=== PATIENT | male | born 1945 | race Caucasian/White ===

== ENCOUNTER 2016-03-02 10:15 | Emergency (ER) | payer OTHER ==
[~2016-03-02] VITALS: Ht 185.4 cm; Wt 83.0 kg
[~2016-03-02 10:15] MED LIST: ALLO100T PO; ATOR80TA PO; BENZ1CAP34 PO; DOCU1CAP39 PO; HYDR-3129 PO; LOSA25 PO; METO25CR PO; PLAV75TA PO; PRED20 PO; PROT40TA PO; TRAZ100 PO
[2016-03-02 10:30] VITALS: BP 141/82; PULSE 78; RESP 16; TEMP 98.5; O2SAT 96
[2016-03-02] MEDS ORDERED: PLAV75TA29 PO (10:48)
[2016-03-02] MEDS ORDERED: HYDR-3583 PO (10:48)
[2016-03-02] MEDS ORDERED: PRED20 PO (10:48)
[2016-03-02] MEDS ORDERED: DEXAMETHASONE SOD PHOS 20 MG/5 ML VIAL IV PUSH ONE (11:00)
[2016-03-02] MEDS ORDERED: SODIUM CHLORIDE 0.9% FLUSH 5 ML FLUSH IVF PRN (11:00)
--- NOTE | 2016-03-02 11:19 | PD ---
HPI . Back and leg pain Chief Complaint: Musculoskeletal Complaint Time Seen by Provider: 10:45 Travel History International Travel<30 days: No Contact w/Intl Traveler<30days: No Traveled to known affect area: No History of Present Illness HPI This patient presents with multiple complaints. His chief complaint is back and leg pain. He reports an ongoing history of sciatica causes pain in his left lower extremity. He states that he is now having pain in his right lower extremity as well. Pain is exacerbated by movement. Pain is unrelieved by Huntley. He has been on Huntley 10 mg for quite some time. Patient is also complaining with left shoulder pain. He states that he is scheduled to see a specialist next week for an apparent rotator cuff issue. He is also complaining with chest pain, nausea, dizziness and chills. PFSH Past Medical History Arthritis: Yes Asthma: Yes Autoimmune Disease: No Anxiety: No Depression: No Heart Rhythm Problems: No Cancer: No Cardiovascular Problems: Yes High Cholesterol: Yes Chemotherapy: No Chest Pain: No Congestive Heart Failure: No COPD: Yes Cerebrovascular Accident: No Diabetes: No Diminished Hearing: No Endocrine: No Gastrointestinal Disorders: No GERD: No Genitourinary: No Headaches: No Hepatitis: No Hiatal Hernia: No Hypertension: Yes Immune Disorder: No Implanted Vascular Access Dvce: No Kidney Stones: No Musculoskeletal: Yes (torn rotator cuff) Neurologic: No Psychiatric: No Reproductive: No Respiratory: Yes Migraines: No Myocardial Infarction: No Radiation Therapy: No Renal Failure: No Seizures: No Shingles: Yes Sickle Cell Disease: No Sleep Apnea: No Thyroid Disease: No Ulcer: No PNEUMOCCOCAL Vaccine (Year): 1 Past Surgical History Abdominal Surgery: Yes (HERNIORRHAPHY) AICD: No Appendectomy: No Arteriovenous Shunt: No Cardiac Surgery: No Cholecystectomy: No Coronary Stent: Yes (RCA 2015) Ear Surgery: No Endocrine Surgery: No Eye Surgery: Yes (CATARACTS) Genitourinary Surgery: No Gynecologic Surgery: No Insulin Pump: No Joint Replacement: No Neurologic Surgery: No Oral Surgery: No Pacemaker: No Thoracic Surgery: No Tonsillectomy: Yes (HAS HAD TESTICULAR SURGERY) Other Surgery: Yes (sinus) Social History Alcohol Use: Yes (A FEW BEERS MOST DAYS) Tobacco Use: No (QUIT) Substance Use: No Allergies-Medications (Allergen,Severity, Reaction): Coded Allergies: Avelox (Verified Allergy, Severe, Anaphylaxis, 03/02/16) Bactrim (Verified Allergy, Severe, PT CURRENTLY TAKING, 03/02/16) Levaquin (Verified Allergy, Severe, unknown, 03/02/16) patient has a cross sensitvity to avelox Morphine (Verified Allergy, Severe, UNKNOWN, 03/02/16) Penicillin (Verified Allergy, Severe, rash, 03/02/16) Cefuroxime sodium (Verified Adverse Reaction, Intermediate, Rash, 03/02/16) Reported Meds & Prescriptions Reported Meds & Active Scripts Active Reported Plavix (Clopidogrel Bisulfate) 75 Mg Tab 75 Mg PO DAILY Hydrocodone-Acetaminophen 10-325 mg Tab 1 Tab PO Q4H PRN Prednisone 20 Mg Tab 20 Mg PO DAILY Review of Systems Except as stated in HPI: all other systems reviewed are Neg General / Constitutional: Positive: Chills HENT: Positive: Lightheadedness Cardiovascular: Positive: Chest Pain or Discomfort Respiratory: No: Shortness of Breath Gastrointestinal: Positive: Nausea, No: Vomiting, Diarrhea Musculoskeletal: Positive: Pain Neurologic: Positive: Dizziness, No: Focal Abnormalities, Paresthesia, Incontinence, Sensory Disturbance Physical Exam Narrative GENERAL: 70-year-old man who presents ambulatory in no acute distress. SKIN: Warm and dry. HEAD: Atraumatic. Normocephalic. EYES: Pupils equal and round. ENT: No nasal bleeding or discharge. Mucous membranes pink and moist. NECK: Trachea midline. Neck is supple. CARDIOVASCULAR: Regular rate and rhythm. Heart sounds are normal. RESPIRATORY: No accessory muscle use. Lungs are clear with full air movement throughout. GASTROINTESTINAL: Abdomen soft, non-tender, nondistended. MUSCULOSKELETAL: No obvious deformities. No edema. I am unable to elicit any tenderness to percussion along his spine. He complains of posterior leg pain on bilateral straight leg raise. NEUROLOGICAL: Awake and alert. No obvious cranial nerve deficits. Motor grossly within normal limits. Normal speech. PSYCHIATRIC: Appropriate mood and affect; insight and judgment normal. Data Data Last Documented VS Vital Signs Date Time Temp Pulse Resp B/P Pulse Ox O2 Delivery O2 Flow Rate FiO2 03/02/16 10:30 98.5 78 16 141/82 96 Orders Electrocardiogram (03/02/16 10:54) Basic Metabolic Panel (Bmp) (03/02/16 10:54) Ckmb (Isoenzyme) Profile (03/02/16 10:54) Complete Blood Count With Diff (03/02/16 10:54) Magnesium (Mg) (03/02/16 10:54) Troponin I (03/02/16 10:54) Chest, Single Ap (03/02/16 10:54) Iv Access Insert/Monitor (03/02/16 10:54) Sodium Chloride 0.9% Flush (Ns Flush) (03/02/16 11:00) Dexamethasone Inj (Decadron Inj) (03/02/16 11:00) CKMB (03/02/16 11:15) CKMB% (03/02/16 11:15) Labs Laboratory Tests Test 03/02/16 11:15 White Blood Count 8.4 TH/MM3 Red Blood Count 4.93 MIL/MM3 Hemoglobin 15.0 GM/DL Hematocrit 45.7 % Mean Corpuscular Volume 92.8 FL Mean Corpuscular Hemoglobin 30.4 PG Mean Corpuscular Hemoglobin 32.8 % Concent Red Cell Distribution Width 13.3 % Platelet Count 153 TH/MM3 Mean Platelet Volume 8.3 FL Neutrophils (%) (Auto) 87.1 % Lymphocytes (%) (Auto) 7.6 % Monocytes (%) (Auto) 4.4 % Eosinophils (%) (Auto) 0.2 % Basophils (%) (Auto) 0.7 % Neutrophils # (Auto) 7.3 TH/MM3 Lymphocytes # (Auto) 0.6 TH/MM3 Monocytes # (Auto) 0.4 TH/MM3 Eosinophils # (Auto) 0.0 TH/MM3 Basophils # (Auto) 0.1 TH/MM3 CBC Comment DIFF FINAL Differential Comment Sodium Level 141 MEQ/L Potassium Level 4.1 MEQ/L Chloride Level 102 MEQ/L Carbon Dioxide Level 29.1 MEQ/L Anion Gap 10 MEQ/L Blood Urea Nitrogen 11 MG/DL Creatinine 1.00 MG/DL Estimat Glomerular Filtration 74 ML/MIN Rate Random Glucose 133 MG/DL Calcium Level 8.7 MG/DL Magnesium Level 1.9 MG/DL Total Creatine Kinase 143 U/L Creatine Kinase MB 3.0 NG/ML Troponin I LESS THAN 0.02 NG/ML MDM Medical Decision Making Medical Screen Exam Complete: Yes Emergency Medical Condition: Yes Medical Record Reviewed: Yes ( I have reviewed his records and he does have an ongoing history of this pain. 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 Differential Diagnosis Differential diagnosis of back pain includes but is not limited to muscular low back pain, DDD, spinal stenosis, epidural abscess, sciatica, kidney infection or stone. Differential diagnosis of chest pain includes but is not limited to musculoskeletal pain, pulmonary embolism, acute coronary syndrome, pneumonia, pleurisy. Narrative Course Patient presents with multiple complaints. I have not ordered any imaging of his back. If his white count is normal, my suspicion for epidural abscess will be low. I have a very low index of suspicion for any acute problem with this patient. Chest x-ray is negative to the radiologist's interpretation. Chest x-ray was independently viewed by me. CBC is normal. Electrolytes are normal. Troponin is less than 0.02. CK-MB is 3. No acute etiology for the patient's symptoms has been found. Diagnosis Primary Impression: Sciatica Qualified Code: M54.31 - Bilateral sciatica Additional Impression: Chest pain Qualified Code: R07.9 - Chest pain, unspecified type Disposition: 01 DISCHARGE HOME Condition: Stable Marce Gonzalez MD Mar 02, 2016 11:19
[2016-03-02 11:21] LABS: AUTOMATED NEUTROPHIL # 7.3 TH/MM3 (1.8-7.7); BASOPHIL # 0.1 TH/MM3 (0-0.2); BASOPHIL % 0.7 % (0.0-2.0); EOSINOPHIL % 0.2 % (0.0-4.0); HEMATOCRIT 45.7 % (39.0-51.0); LYMPH % 7.6 % (9.0-44.0); LYMPHOCYTE # 0.6 TH/MM3 (1.0-4.8); MEAN CELL VOLUME 92.8 FL (80.0-100.0); MEAN CORPUSCULAR HEMOGLOBIN 30.4 PG (27.0-34.0); MEAN CORPUSCULAR HGB CONC 32.8 % (32.0-36.0); MONO % 4.4 % (0.0-8.0); NEUT % 87.1 % (16.0-70.0); PLATELET COUNT 153 TH/MM3 (150-450); RED BLOOD COUNT 4.93 MIL/MM3 (4.50-5.90); RED CELL DISTRIBUTION WIDTH 13.3 % (11.6-17.2); WHITE BLOOD COUNT 8.4 TH/MM3 (4.0-11.0)
[2016-03-02 11:25] LABS: HEMO FLAGS DIFF FINAL
[2016-03-02 11:29] LABS: CHLORIDE 102 MEQ/L (98-107); POTASSIUM 4.1 MEQ/L (3.5-5.1); SODIUM (NA) 141 MEQ/L (136-145)
[2016-03-02 11:32] LABS: ANION GAP 10 MEQ/L (5-15); BICARBONATE 29.1 MEQ/L (21.0-32.0); BLOOD UREA NITROGEN 11 MG/DL (7-18); MAGNESIUM 1.9 MG/DL (1.5-2.5)
[2016-03-02 11:35] LABS: GLOMERULAR FILTRATION RATE 74 ML/MIN (>89)
[2016-03-02 11:38] LABS: CREATINE KINASE 143 U/L (39-308)
--- NOTE | 2016-03-02 12:06 | RADHPO ---
EXAM DATE/TIME: 03/02/2016 11:18 [facility] COMPARISON: CHEST SINGLE AP, December 01, 2013, 13:48. INDICATIONS : Chest pain, short of breath. MEDICAL HISTORY : Cardiovascular disease. SURGICAL HISTORY : Coronary artery stent. ENCOUNTER: Initial ACUITY: 3 days PAIN SCORE: 2/10 LOCATION: Bilateral chest FINDINGS: A single view of the chest demonstrates the lungs to be symmetrically aerated without evidence of mas s, infiltrate or effusion. The cardiomediastinal contours are unremarkable. Osseous structures are intact. CONCLUSION: No acute disease. Ranulfo Torres MD FACR on March 02, 2016 at 12:05 Board Certified Radiologist. This report was verified electronically.
--- NOTE | 2016-03-02 22:23 | EKG ---
Date Performed: 03/02/2016 Time Performed: 10:57:46 PTAGE: 70 years EKG: Sinus rhythm Left anterior fascicular block rSr'(V1) - probable normal variant Borderline ECG PREVIOUS TRACING : 05/16/2015 22.04 Since previous tracing, no significant change noted DOCTOR: Maco Jackson Interpretating Date/Time 03/02/2016 22:21:58
== END 2016-03-02 13:01 | disposition home or self-care (01) ==
LOC: PHEFT 10:15
DX: M54.31 Sciatica, right side (principal); M54.32 Sciatica, left side; R07.9 Chest pain, unspecified; M25.512 Pain in left shoulder; R42 Dizziness and giddiness; J45.909 Unspecified asthma, uncomplicated; E78.00 Pure hypercholesterolemia, unspecified; J44.9 Chronic obstructive pulmonary disease, unspecified; I10 Essential (primary) hypertension; R94.31 Abnormal electrocardiogram [ECG] [EKG]
CPT/HCPCS: 71010; 80048; 82550; 82552; 83735; 84484; 85025; 93005; 96374; 99284; J1100

== ENCOUNTER 2016-09-08 18:41 | Emergency (ER) | payer OTHER ==
[~2016-09-08 18:41] MED LIST changes: -ALLO100T PO; -ATOR80TA PO; -BENZ1CAP34 PO; -DOCU1CAP39 PO; -HYDR-3129 PO; +HYDR-3583 PO; -LOSA25 PO; -METO25CR PO; -PLAV75TA PO; +PLAV75TA29 PO; -PROT40TA PO; -TRAZ100 PO
[2016-09-08 18:43] VITALS: BP 132/68; PULSE 101; RESP 17; TEMP 99.3; O2SAT 96
[2016-09-08] MEDS ORDERED: KETOROLAC TROMETHAMINE 60 MG/2 ML (IM) VIAL IM ONE (19:30)
--- NOTE | 2016-09-08 19:38 | PD ---
HPI Chief Complaint: Pain: Acute or Chronic Time Seen by Provider: 19:12 Travel History International Travel<30 days: No Contact w/Intl Traveler<30days: No Traveled to known affect area: No History of Present Illness HPI 70-year-old male presents to the emergency department for evaluation of bilateral toe pain 2 days. Patient reports history of chronic pain caused by his neuropathy. He reports his pain is worse than his usual. He denies injury or trauma to the foot. Pain is unrelieved by his Holmes which he takes for his chronic pain. No aggravating or alleviating factors. Symptoms severity mild. PFSH Past Medical History Arthritis: Yes Asthma: Yes Autoimmune Disease: Yes (RA) Anxiety: No Depression: No Heart Rhythm Problems: No Cancer: No Cardiovascular Problems: Yes High Cholesterol: Yes Chemotherapy: No Chest Pain: No Congestive Heart Failure: No COPD: Yes Cerebrovascular Accident: No Coronary Artery Disease: Yes Diabetes: No Diminished Hearing: No Endocrine: No Gastrointestinal Disorders: No GERD: No Genitourinary: No Headaches: No Hepatitis: No Hiatal Hernia: No Hypertension: Yes Immune Disorder: No Implanted Vascular Access Dvce: No Kidney Stones: No Musculoskeletal: Yes (torn rotator cuff) Neurologic: No Psychiatric: No Reproductive: No Respiratory: Yes Migraines: No Myocardial Infarction: No Radiation Therapy: No Renal Failure: No Seizures: No Shingles: Yes Sickle Cell Disease: No Sleep Apnea: No Thyroid Disease: No Ulcer: No Influenza Vaccination: No PNEUMOCCOCAL Vaccine (Year): 1 ?: Not Past Surgical History Abdominal Surgery: Yes (HERNIORRHAPHY) AICD: No Appendectomy: No Arteriovenous Shunt: No Cardiac Surgery: No Cholecystectomy: No Coronary Stent: Yes (RCA 2015) Ear Surgery: No Endocrine Surgery: No Eye Surgery: Yes (CATARACTS) Genitourinary Surgery: No Gynecologic Surgery: No Insulin Pump: No Joint Replacement: No Neurologic Surgery: No Oral Surgery: No Pacemaker: No Thoracic Surgery: No Tonsillectomy: Yes (HAS HAD TESTICULAR SURGERY) Other Surgery: Yes (sinus) Social History Alcohol Use: Yes (A FEW BEERS PER WEEK) Tobacco Use: No (QUIT) Substance Use: No Allergies-Medications (Allergen,Severity, Reaction): Coded Allergies: Avelox (Verified Allergy, Severe, Anaphylaxis, 09/08/16) Bactrim (Verified Allergy, Severe, RASH, 09/08/16) Levaquin (Verified Allergy, Severe, unknown, 09/08/16) patient has a cross sensitvity to avelox Morphine (Verified Allergy, Severe, UNKNOWN, 09/08/16) Penicillin (Verified Allergy, Severe, rash, 09/08/16) Cefuroxime sodium (Verified Adverse Reaction, Intermediate, Rash, 09/08/16) Reported Meds & Prescriptions Reported Meds & Active Scripts Active Reported Plavix (Clopidogrel Bisulfate) 75 Mg Tab 75 Mg PO DAILY Hydrocodone-Acetaminophen 10-325 mg Tab 1 Tab PO Q4H PRN Prednisone 20 Mg Tab 20 Mg PO DAILY Review of Systems Except as stated in HPI: all other systems reviewed are Neg General / Constitutional: No: Fever Eyes: No: Visual changes HENT: No: Headaches Cardiovascular: No: Chest Pain or Discomfort Respiratory: No: Shortness of Breath Gastrointestinal: No: Abdominal Pain Genitourinary: No: Dysuria Musculoskeletal: Positive: Pain (bilateral great toe pain) Physical Exam Narrative GENERAL: Well-nourished, well-developed patient. SKIN: Focused skin assessment warm/dry. HEAD: Normocephalic. EYES: No scleral icterus. No injection or drainage. NECK: Supple, trachea midline. No JVD or lymphadenopathy. CARDIOVASCULAR: Regular rate and rhythm without murmurs, gallops, or rubs. RESPIRATORY: Breath sounds equal bilaterally. No accessory muscle use. GASTROINTESTINAL: Abdomen soft, non-tender, nondistended. MUSCULOSKELETAL: No cyanosis, or edema. 2+ distal pulses. No joint swelling or erythema. Bilateral feet are diffusely painful per palpation no identifiable point tenderness.. BACK: Nontender without obvious deformity. No CVA tenderness. Data Data Last Documented VS Vital Signs Date Time Temp Pulse Resp B/P Pulse Ox O2 Delivery O2 Flow Rate FiO2 09/08/16 18:43 99.3 101 17 132/68 96 Orders Ketorolac Inj (Toradol Inj) (09/08/16 19:30) MDM Medical Decision Making Medical Screen Exam Complete: Yes Emergency Medical Condition: Yes Differential Diagnosis Neuropathy, acute on chronic pain, arthritis Narrative Course 70-year-old male presents emergency department for evaluation of worsening pain in his bilateral great toes. Patient denies trauma. Patient has history of neuropathy with chronic pain in his feet and legs. He reports the pain is unrelieved by his no code.. His physical exam is benign. His extremities are neurovascularly intact. Patient will be given a shot of Toradol and discharged home with NSAIDs. Instructed to follow up with his primary care doctor. 1944 notified by nursing staff the patient was refusing to leave because his pain was not adequately controlled to his standards. Patient claims he cannot walk that he is ambulating in the room. He is threatening to reshma the hospital for not treating his pain. To my assessment the patient does not appear to be in any physical pain. He was given a shot of Toradol and instructed to take his Holmes and follow-up with his pain management doctor. Patient ambulated out of the emergency department with a steady gait. Diagnosis Primary Impression: Neuropathy Additional Impression: Foot pain Qualified Code: M79.671 - Pain in both feet Referrals: Primary Care Physician Additional Instructions: Take the medication as prescribed. Take her Holmes as prescribed. Follow-up with her primary care doctor. Disposition: DISCHARGE HOME Condition: Stable Millie Lai Sep 08, 2016 19:37
== END 2016-09-08 19:55 | disposition home or self-care (01) ==
LOC: PHEFT 18:41
DX: G62.9 Polyneuropathy, unspecified (principal); M79.672 Pain in left foot; M79.671 Pain in right foot
CPT/HCPCS: 96372; 99284; J1885

== ENCOUNTER 2017-05-16 12:33 | Emergency (ER) | payer MEDICARE, OTHER ==
[~2017-05-16] VITALS: Ht 185.4 cm; Wt 72.0 kg
[~2017-05-16 12:33] MED LIST changes: +ASPI-516 CHEW; +DILT31TA PO
[2017-05-16 12:40] VITALS: BP 124/85; PULSE 89; RESP 16; TEMP 97.4; O2SAT 98
--- NOTE | 2017-05-16 13:31 | PD ---
HPI Chief Complaint: Bilateral leg pain Time Seen by Provider: 13:04 Travel History International Travel<30 days: No Contact w/Intl Traveler<30days: No Traveled to known affect area: No History of Present Illness HPI This 71-year-old male says he is having pain in both of his legs. He has a history of back trouble and neuropathy. He has burning pain in his left leg which is quite severe. He goes to Dr. Haley for pain management and is on [place] 4 times daily. He had been on gabapentin but stopped it because it was not working and he had adverse effect. He is on prednisone 20 mg daily for COPD. He says that a couple days ago his right knee swelled up. He does have a history of rheumatoid arthritis. There is no history of injury to the knee. He takes aspirin and Plavix. He has been told that he needs surgery on his back but Dr. Pires has told him that he cannot have the surgery because of his heart issues. PFSH Past Medical History Hx Anticoagulant Therapy: Yes Arthritis: Yes (ra) Asthma: Yes Autoimmune Disease: Yes (RA) Anxiety: No Depression: No Heart Rhythm Problems: No Cancer: No Cardiovascular Problems: Yes ([place] with stents) High Cholesterol: Yes Chemotherapy: No Chest Pain: No Congestive Heart Failure: No COPD: Yes Cerebrovascular Accident: No Coronary Artery Disease: Yes Diabetes: No Diminished Hearing: No Endocrine: No Gastrointestinal Disorders: No GERD: No Genitourinary: No Headaches: No Hepatitis: No Hiatal Hernia: No Hypertension: Yes Immune Disorder: No Implanted Vascular Access Dvce: No Kidney Stones: No Musculoskeletal: Yes (torn rotator cuff) Neurologic: No Psychiatric: No Reproductive: No Respiratory: Yes (COPD) Migraines: No Myocardial Infarction: No Radiation Therapy: No Renal Failure: No Seizures: No Shingles: Yes Sickle Cell Disease: No Sleep Apnea: No Thyroid Disease: No Ulcer: No PNEUMOCCOCAL Vaccine (Year): 1 ?: Not Past Surgical History Abdominal Surgery: Yes (HERNIORRHAPHY) AICD: No Appendectomy: No Arteriovenous Shunt: No Cardiac Surgery: No Cholecystectomy: No Coronary Stent: Yes (RCA 2015) Ear Surgery: No Endocrine Surgery: No Eye Surgery: Yes (CATARACTS) Genitourinary Surgery: No Gynecologic Surgery: No Insulin Pump: No Joint Replacement: No Neurologic Surgery: No Oral Surgery: No Pacemaker: No Thoracic Surgery: No Tonsillectomy: Yes (HAS HAD TESTICULAR SURGERY) Other Surgery: Yes (sinus) Social History Alcohol Use: Yes (A FEW BEERS PER WEEK) Tobacco Use: No (QUIT) Substance Use: No Allergies-Medications (Allergen,Severity, Reaction): Coded Allergies: levofloxacin (Verified Allergy, Severe, unknown, 05/16/17) patient has a cross sensitvity to avelox morphine (Verified Allergy, Severe, UNKNOWN, 05/16/17) moxifloxacin (Verified Allergy, Severe, Anaphylaxis, 05/16/17) penicillin G (Verified Allergy, Severe, rash, 05/16/17) sulfamethoxazole (Verified Allergy, Severe, RASH, 05/16/17) trimethoprim (Verified Allergy, Severe, RASH, 05/16/17) cefuroxime (Verified Adverse Reaction, Intermediate, Rash, 05/16/17) Reported Meds & Prescriptions Reported Meds & Active Scripts Active Hydrocodone-Acetamin 10-325 mg (Hydrocodone/Acetaminophen) 10 Mg-325 Mg Tablet 1 Tab PO Q4H PRN Cardizem (Diltiazem HCl) 30 Mg Tab 30 Mg PO TID Reported Aspirin 81 Mg Chew 81 Mg CHEW DAILY Plavix (Clopidogrel Bisulfate) 75 Mg Tab 75 Mg PO DAILY Prednisone 20 Mg Tab 20 Mg PO DAILY Review of Systems General / Constitutional: No: Fever, Chills Eyes: No: Diploplia, Blurred Vision HENT: No: Headaches Cardiovascular: Positive: Chest Pain or Discomfort Respiratory: Positive: Cough, Shortness of Breath Gastrointestinal: No: Vomiting, Diarrhea Genitourinary: No: Urgency Musculoskeletal: Positive: Pain Skin: No Rash Psychiatric: No: Anxiety Endocrine: No: Heat Intolerance Hematologic/Lymphatic: No: Easy Bruising Physical Exam Narrative GENERAL: Well-developed male SKIN: Focused skin assessment warm/dry. HEAD: Atraumatic. Normocephalic. EYES: Pupils equal and round. No scleral icterus. No injection or drainage. ENT: No nasal bleeding or discharge. Mucous membranes pink and moist. NECK: Trachea midline. No JVD. CARDIOVASCULAR: Regular rate and rhythm. No murmur appreciated. RESPIRATORY: No accessory muscle use. Clear to auscultation. Breath sounds equal bilaterally. GASTROINTESTINAL: Abdomen soft, non-tender, nondistended. Hepatic and splenic margins not palpable. MUSCULOSKELETAL: There is an effusion of the right knee. It is not tense it is not warm or hot. He has diminished sensation in the lateral aspect of the left leg. Patellar reflexes are equal.. NEUROLOGICAL: Awake and alert. No obvious cranial nerve deficits. Motor grossly within normal limits. Normal speech. PSYCHIATRIC: Appropriate mood and affect; insight and judgment normal. Data Data Last Documented VS Vital Signs Date Time Temp Pulse Resp B/P (MAP) Pulse Ox O2 Delivery O2 Flow Rate FiO2 05/16/17 12:40 97.4 89 16 124/85 (98) 98 MDM Medical Decision Making Medical Screen Exam Complete: Yes Emergency Medical Condition: Yes Medical Record Reviewed: Yes Differential Diagnosis Differential includes neuropathy, sciatica Narrative Course Effusion of his right knee appears fairly benign. He does have a history of rheumatoid arthritis. He is on prednisone 20 mg daily for his COPD and is on [place] 4 times a day. I really do not have much to offer this gentleman at this time. He has driven here and I cannot give him any pain medication now. He will be released to follow-up with Dr. Haley Diagnosis Primary Impression: Sciatica Additional Impression: Effusion, right knee Additional Instructions: Increase prednisone to 60 mg daily for 2 days, follow-up with Dr. Haley Disposition: 01 DISCHARGE HOME Condition: Stable Robert Varma MD May 16, 2017 13:31
[2017-05-16] MEDS ORDERED: TRAM50TA PO ×2 (14:21)
--- NOTE | 2017-05-17 20:03 | EKG ---
Date Performed: 05/16/2017 Time Performed: 12:54:10 PTAGE: 71 years EKG: Sinus rhythm WITH OCCASIONAL ECTOPIC PREMATURE COMPLEXES MARKED LEFT AXIS DEVIATION Since previous tracing, no si gnificant change noted ABNORMAL ECG PREVIOUS TRACING : 12/31/2016 09.08 DOCTOR: Jared Plata Interpretating Date/Time 05/17/2017 19:58:22
== END 2017-05-16 14:39 | disposition home or self-care (01) ==
LOC: PHED 12:33
DX: M54.30 Sciatica, unspecified side (principal); M25.461 Effusion, right knee; R94.31 Abnormal electrocardiogram [ECG] [EKG]; I10 Essential (primary) hypertension; J44.9 Chronic obstructive pulmonary disease, unspecified; M06.9 Rheumatoid arthritis, unspecified; E78.00 Pure hypercholesterolemia, unspecified; Z79.01 Long term (current) use of anticoagulants; Z87.39 Personal history of other diseases of the musculoskeletal system and connective tissue; Z86.69 Personal history of other diseases of the nervous system and sense organs; Z86.79 Personal history of other diseases of the circulatory system
CPT/HCPCS: 93005; 99283

== ENCOUNTER 2017-06-30 21:05 | Inpatient (IN) | payer OTHER, MEDICARE ==
[~2017-06-30] VITALS: Ht 185.4 cm; Wt 72.5 kg
[~2017-06-30 21:05] MED LIST changes: -ASPI-516 CHEW; -DILT31TA PO; +TRAM50TA PO
[2017-06-30 21:13] VITALS: BP 109/73; PULSE 95; RESP 19; TEMP 98.3; O2SAT 100
--- NOTE | 2017-06-30 21:22 | PD ---
HPI Chief Complaint: Chest Pain Time Seen by Provider: 21:18 Travel History International Travel<30 days: No Contact w/Intl Traveler<30days: No Traveled to known affect area: No History of Present Illness HPI The patient is a 71 year old male who presents to the [facility] emergency department with a history of chest pain and palpitations that began at 7 PM. The cp began while getting up to change the TV. He began to get SOB and used his nebulizer machine however it did not help. He has a history of CAD with 3 prior stents being placed. His fountain manager is reportedly Dr. Pires. He reports that 4 days ago he ran out of his Plavix and has a prescription and to get filled in the morning. He denies having any increased cough or productive cough, however he has reportedly had nasal discharge that is yellow to brown in color since of this past week. He reports also having a sinus pressure in his face. He had a fever with a tmax of 101 on Saturday. He has had chills. Otherwise on review of systems, the patient denies having any worsening neck pain, abdominal pain, vomiting, diarrhea, urinary symptoms, or neurologic symptoms. The patient incidentally also reports that he is out of his pain medicine. He reports he has an appointment scheduled for tomorrow with his pain management doctor. [facility] Past Medical History Narrative Medical The patient's past medical history is significant for atrial flutter, coronary artery disease, prior history of myocardial infarction, rheumatoid arthritis, peripheral neuropathy, peripheral vascular disease, history of COPD, hyperlipidemia, hypertension, history of shingles, history of a torn rotator cuff on the left. Hx Anticoagulant Therapy: Yes Arthritis: Yes (RA) Asthma: Yes Autoimmune Disease: Yes (RA) Anxiety: No Depression: No Heart Rhythm Problems: No Cancer: No Cardiovascular Problems: Yes (NE with stents) High Cholesterol: Yes Chemotherapy: No Chest Pain: No Congestive Heart Failure: No COPD: Yes Cerebrovascular Accident: No Coronary Artery Disease: Yes Diabetes: No Diminished Hearing: No Endocrine: No Gastrointestinal Disorders: No GERD: No Genitourinary: No Headaches: No Hepatitis: No Hiatal Hernia: No Hypertension: Yes Immune Disorder: No Implanted Vascular Access Dvce: No Kidney Stones: No Musculoskeletal: Yes (torn rotator cuff) Neurologic: No Psychiatric: No Reproductive: No Respiratory: Yes (COPD, asthma ) Migraines: No Myocardial Infarction: Yes Radiation Therapy: No Renal Failure: No Seizures: No Shingles: Yes Sickle Cell Disease: No Sleep Apnea: No Thyroid Disease: No Ulcer: No PNEUMOCCOCAL Vaccine (Year): 1 ?: Not Past Surgical History Narrative Surgical The patient's past surgical history is significant for hernia repair, right coronary artery stenting in 2016, cataract surgery, tonsillectomy, testicle surgery Abdominal Surgery: Yes (HERNIORRHAPHY) AICD: No Appendectomy: No Arteriovenous Shunt: No Cardiac Surgery: No Cholecystectomy: No Coronary Stent: Yes (x3) Ear Surgery: No Endocrine Surgery: No Eye Surgery: Yes (CATARACTS) Genitourinary Surgery: No Gynecologic Surgery: No Insulin Pump: No Joint Replacement: No Neurologic Surgery: No Oral Surgery: No Pacemaker: No Thoracic Surgery: No Tonsillectomy: Yes (HAS HAD TESTICULAR SURGERY) Social History Alcohol Use: Yes (A FEW BEERS PER WEEK) Tobacco Use: No Substance Use: No Allergies-Medications (Allergen,Severity, Reaction): Coded Allergies: levofloxacin (Verified Allergy, Severe, unknown, 06/30/17) patient has a cross sensitvity to avelox morphine (Verified Allergy, Severe, UNKNOWN, 06/30/17) moxifloxacin (Verified Allergy, Severe, Anaphylaxis, 06/30/17) penicillin G (Verified Allergy, Severe, rash, 06/30/17) sulfamethoxazole (Verified Allergy, Severe, RASH, 06/30/17) trimethoprim (Verified Allergy, Severe, RASH, 06/30/17) cefuroxime (Verified Adverse Reaction, Intermediate, Rash, 06/30/17) Reported Meds & Prescriptions Reported Meds & Active Scripts Active Hydrocodone-Acetamin 10-325 mg (Hydrocodone/Acetaminophen) 10 Mg-325 Mg Tablet 1 Tab PO Q4H PRN Reported Tramadol (Tramadol HCl) 50 Mg Tab 50 Mg PO Q4H PRN Prednisone 20 Mg Tab 20 Mg PO DAILY Review of Systems Except as stated in HPI: all other systems reviewed are Neg General / Constitutional: Positive: Fever, Chills Eyes: No: Visual changes HENT: Positive: Headaches, Rhinorrhea, No: Sore Throat, Neck Pain Cardiovascular: Positive: Chest Pain or Discomfort, Dyspnea on exertion Respiratory: Positive: Shortness of Breath, No: Cough Gastrointestinal: No: Nausea, Vomiting, Diarrhea, Abdominal Pain Genitourinary: No: Dysuria Musculoskeletal: No: Pain Skin: No Rash Neurologic: No: Weakness, Focal Abnormalities, Change in Mentation, Slurred Speech, Sensory Disturbance Psychiatric: No: Depression Endocrine: No: Polydipsia Hematologic/Lymphatic: No: Easy Bruising Physical Exam Narrative General: The patient is a well-developed well-nourished male in no acute distress. Head and Neck exam: Head is normocephalic atraumatic. Eyes: EOMI, pupils are equal round and reactive to light. Nose: Midline septum with pink mucous membranes Mouth: Dentition unremarkable. Moist mucus membranes. Posterior oropharynx is not erythematous. No tonsillar hypertrophy. Uvula midline. Airway patent. Neck: No palpable lymphadenopathy. No nuchal rigidity. No thyromegaly. Cardiovascular: Sinus tachycardia in the low 100s without murmurs, gallops, or rubs. No pulse deficit to the extremities on simultaneous auscultation and palpation of his radial artery. Lungs: Clear to auscultation bilaterally. No wheezes, rhonchi, or rales. Abdomen: Soft, without tenderness to palpation in all 4 quadrants of the abdomen. No guarding, rebound, or rigidity. Normal bowel sounds are audible. No tenderness on palpation of McBurney's point. Negative Thacker sign. Extremities: No clubbing, cyanosis, or edema. 2+ pulses in all 4 extremities. No calf tenderness on palpation. Back: No spinous process tenderness to palpation. No costovertebral angle tenderness to palpation. Neurologic Exam: Grossly nonfocal. Skin Exam: No rash noted. Intact skin that is warm and dry. Data Data Last Documented VS Vital Signs Date Time Temp Pulse Resp B/P (MAP) Pulse Ox O2 Delivery O2 Flow Rate FiO2 06/30/17 23:00 108 16 127/63 (84) 98 Nasal Cannula 2.00 06/30/17 21:13 98.3 Orders Orders Electrocardiogram (06/30/17 21:19) Complete Blood Count With Diff (06/30/17 21:19) Comprehensive Metabolic Panel (06/30/17 21:19) Creatine Kinase (Cpk) (06/30/17 21:19) Ckmb (Isoenzyme) Profile (06/30/17 21:19) Troponin I (06/30/17 21:19) B-Type Natriuretic Peptide (06/30/17 21:19) Prothrombin Time / Inr (Pt) (06/30/17 21:19) Act Partial Throm Time (Ptt) (06/30/17 21:19) Lipase (06/30/17 21:19) Urinalysis - C+S If Indicated (06/30/17 21:19) Magnesium (Mg) (06/30/17 21:19) Chest, Single Ap (06/30/17 21:19) Iv Access Insert/Monitor (06/30/17 21:19) Ecg Monitoring (06/30/17 21:19) Oximetry (06/30/17 21:19) D-Dimer (06/30/17 21:19) Nitroglycerin 2% Oint (Nitroglycerin 2% (06/30/17 22:30) Nitroglycerin Sl (Nitrostat Sl) (06/30/17 22:30) Acetamin-Hydrocod 325-5 Mg ([place] 5-325 (06/30/17 23:45) Admit Order (Ed Use Only) (06/30/17 23:37) Labs Laboratory Tests Test 06/30/17 21:29 06/30/17 22:55 White Blood Count 10.2 TH/MM3 Red Blood Count 4.38 MIL/MM3 Hemoglobin 13.8 GM/DL Hematocrit 39.9 % Mean Corpuscular Volume 90.9 FL Mean Corpuscular Hemoglobin 31.4 PG Mean Corpuscular Hemoglobin Concent 34.6 % Red Cell Distribution Width 14.0 % Platelet Count 219 TH/MM3 Mean Platelet Volume 7.8 FL Neutrophils (%) (Auto) 93.1 % Lymphocytes (%) (Auto) 5.3 % Monocytes (%) (Auto) 1.2 % Eosinophils (%) (Auto) 0.1 % Basophils (%) (Auto) 0.3 % Neutrophils # (Auto) 9.5 TH/MM3 Lymphocytes # (Auto) 0.5 TH/MM3 Monocytes # (Auto) 0.1 TH/MM3 Eosinophils # (Auto) 0.0 TH/MM3 Basophils # (Auto) 0.0 TH/MM3 CBC Comment DIFF FINAL Differential Comment Prothrombin Time 10.7 SEC Prothromb Time International Ratio 1.1 RATIO Activated Partial Thromboplast Time 22.8 SEC D-Dimer Quantitative (PE/DVT) LESS THAN 0.19 MG/L FEU Blood Urea Nitrogen 14 MG/DL Creatinine 1.15 MG/DL Random Glucose 79 MG/DL Total Protein 6.4 GM/DL Albumin 3.3 GM/DL Calcium Level 9.0 MG/DL Magnesium Level 1.9 MG/DL Alkaline Phosphatase 57 U/L Aspartate Amino Transf (AST/SGOT) 25 U/L Alanine Aminotransferase (ALT/SGPT) 25 U/L Total Bilirubin 0.4 MG/DL Sodium Level 143 MEQ/L Potassium Level 4.0 MEQ/L Chloride Level 104 MEQ/L Carbon Dioxide Level 31.9 MEQ/L Anion Gap 7 MEQ/L Estimat Glomerular Filtration Rate 63 ML/MIN Total Creatine Kinase 77 U/L Troponin I LESS THAN 0.02 NG/ML B-Type Natriuretic Peptide 124 PG/ML Lipase 201 U/L Urine Color YELLOW Urine Turbidity CLEAR Urine pH 6.5 Urine Specific [place] 1.020 Urine Protein NEG mg/dL Urine Glucose (UA) 70 mg/dL Urine Ketones NEG mg/dL Urine Occult Blood SMALL Urine Nitrite NEG Urine Bilirubin NEG Urine Urobilinogen 2.0 MG/DL Urine Leukocyte Esterase NEG Urine RBC 12 /hpf Urine WBC LESS THAN 1 /hpf Urine Mucus FEW /lpf Microscopic Urinalysis Comment CULT NOT INDICATED MDM Medical Decision Making Medical Screen Exam Complete: Yes Emergency Medical Condition: Yes Medical Record Reviewed: Yes Differential Diagnosis Acute coronary syndrome, versus pneumothorax, versus pulmonary embolism, versus pneumonia, versus COPD exacerbation, versus congestive heart failure Narrative Course During the course of the patient's emergency department visit, the patient's history, examination, and differential diagnosis were reviewed with the patient. The patient was placed on a campus monitor with oximetry and frequent blood pressure monitoring. The patient had IV access obtained and blood work sent for analysis. The patient had an EKG done on arrival. The patient's EKG revealed a sinus rhythm with occasional supraventricular premature complexes heart rate of 88, QRS duration 102 ms, QTC 407 ms. T waves are inverted in V1. No acute ST segment elevation is noted. The patient was initially provided by ambulance services 324 mg of aspirin p.o. , sublingual nitroglycerin 2. The patient was given an additional sublingual nitroglycerin, nitroglycerin 1 inch the chest wall. The patient's laboratory studies were reviewed and remarkable for 06/30/17 21:29 Total Protein 6.4, Albumin 3.3 L, Calcium Level 9.0, Magnesium Level 1.9, Alkaline Phosphatase 57, Aspartate Amino Transf (AST/SGOT) 25, Alanine Aminotransferase (ALT/SGPT) 25, Total Bilirubin 0.4, lipase is within normal limits, cardiac enzymes initial set within normal limits, BNP is 124. PT 10.7, PTT 22.7, d-dimer is less than 0.19 decreasing the likelihood of pulmonary embolism in this patient with no other significant risk factors. Urinalysis shows 70 glucose, small occult blood, 12 RBCs, otherwise unremarkable Radiology studies were reviewed and remarkable for Last Impressions Chest X-Ray 06/30/172118 Signed Impressions: Service Date/Time: Friday, June 30, 2017 21:35 - CONCLUSION: No acute cardiopulmonary disease. Degenerative changes and scoliosis of the thoracic spine. Mauricio Zamorano MD The patient will be admitted to the chest pain center for rule out serial cardiac enzyme protocol followed by consideration of stress testing. The patient's results were discussed with the patient, including the plan of care. I explained that further testing and/ or monitoring is indicated based on the patient's history, examination, and/ or laboratory findings. Therefore, I recommended admission for additional evaluation. The patient expressed understanding and was agreeable with this plan. The patient was admitted to the hospital in stable condition and sent to a bed under the care of the chest pain center. Diagnosis Primary Impression: Chest pain, rule out acute myocardial infarction Admitting Information Admitting Physician Requests: Ruthann Ballard MD June 30, 2017 21:22
[2017-06-30 21:23] VITALS: O2SAT 98
[2017-06-30 22:00] VITALS: BP 175/74; PULSE 100; RESP 17; O2SAT 99
[2017-06-30 22:07] LABS: AUTOMATED NEUTROPHIL # 9.5 TH/MM3 (1.8-7.7); BASOPHIL % 0.3 % (0.0-2.0); EOSINOPHIL % 0.1 % (0.0-4.0); HEMATOCRIT 39.9 % (39.0-51.0); HEMOGLOBIN 13.8 GM/DL (13.0-17.0); LYMPH % 5.3 % (9.0-44.0); LYMPHOCYTE # 0.5 TH/MM3 (1.0-4.8); MEAN CELL VOLUME 90.9 FL (80.0-100.0); MEAN CORPUSCULAR HEMOGLOBIN 31.4 PG (27.0-34.0); MEAN CORPUSCULAR HGB CONC 34.6 % (32.0-36.0); MEAN PLATELET VOLUME 7.8 FL (7.0-11.0); MONO % 1.2 % (0.0-8.0); MONOCYTE # 0.1 TH/MM3 (0-0.9); NEUT % 93.1 % (16.0-70.0); PLATELET COUNT 219 TH/MM3 (150-450); RED BLOOD COUNT 4.38 MIL/MM3 (4.50-5.90); WHITE BLOOD COUNT 10.2 TH/MM3 (4.0-11.0)
[2017-06-30 22:18] LABS: ALBUMIN 3.3 GM/DL (3.4-5.0); AST (GOT) 25 U/L (15-37); BICARBONATE 31.9 MEQ/L (21.0-32.0); BLOOD UREA NITROGEN 14 MG/DL (7-18); CHLORIDE 104 MEQ/L (98-107); CREATININE 1.15 MG/DL (0.60-1.30); GLOMERULAR FILTRATION RATE 63 ML/MIN (>89); GLUCOSE,RANDOM 79 MG/DL (74-106); MAGNESIUM 1.9 MG/DL (1.5-2.5); SODIUM (NA) 143 MEQ/L (136-145)
--- NOTE | 2017-06-30 22:18 | RADRPT ---
EXAM DATE/TIME: 06/30/2017 21:35 [facility] COMPARISON: CHEST SINGLE AP, December 31, 2016, 9:34. INDICATIONS : Chest pain. MEDICAL HISTORY : Cardiovascular disease. SURGICAL HISTORY : Coronary artery stent. ENCOUNTER: Initial ACUITY: 1 day PAIN SCORE: 5/10 LOCATION: Bilateral chest FINDINGS: A single view of the chest demonstrates the lungs to be symmetrically aerated without evidence of mas s, infiltrate or effusion. The cardiomediastinal contours are unremarkable. Degenerative changes and scoliosis of the thoracic spine are stable. CONCLUSION: No acute cardiopulmonary disease. Degenerative changes and scoliosis of the thoracic spine. Mauricio Zamorano MD on June 30, 2017 at 22:15 Board Certified Radiologist. This report was verified electronically.
[2017-06-30 22:20] LABS: INTERNATIONAL NORMALIZED RATIO 1.1 RATIO; PROTHROMBIN TIME - PATIENT 10.7 SEC (9.8-11.6)
[2017-06-30 22:23] LABS: ALKALINE PHOSPHATASE 57 U/L (45-117); ALT (GPT) 25 U/L (12-78); TOTAL BILIRUBIN ADULT 0.4 MG/DL (0.2-1.0); TOTAL PROTEIN 6.4 GM/DL (6.4-8.2); TROPONIN I LESS THAN 0.02 NG/ML (0.02-0.05)
[2017-06-30] MEDS ORDERED: NITROGLYCERIN 0.4 MG SL 25 TABS/BTL SL ONE (22:30)
[2017-06-30] MEDS ORDERED: NITROGLYCERIN 2% OINT 1 GM PACKET TOPICAL ONE (22:30)
[2017-06-30 22:32] LABS: D-DIMER LESS THAN 0.19 MG/L FEU (0.00-0.50)
[2017-06-30 22:44] VITALS: BP 131/64; PULSE 100; RESP 17; O2SAT 99
[2017-06-30 23:00] VITALS: BP 127/63; PULSE 108; RESP 16; O2SAT 98
[2017-06-30 23:07] LABS: BILIRUBIN, URINE NEG (NEG); BLOOD, URINE SMALL (NEG); GLUCOSE,URINE 70 mg/dL (NEG); KETONE, URINE NEG (NEG); MUCUS URINE FEW /lpf (OCC); NITRITE,URINE NEG (NEG); PH, URINE 6.5 (5.0-8.5); URINE COLOR YELLOW (YELLW/STRAW); URINE LEUKOCYTE ESTERASE NEG (NEG)
[2017-06-30] MEDS ORDERED: IOHEXOL 350 MG/ML 100 ML BTL (for Cath Lab) OTHER ONE (23:39)
[2017-06-30] MEDS ORDERED: ACETAMINOPHEN/HYDROcodone 325 MG/5 MG TAB PO ONE (23:45)
[2017-06-30 23:50] VITALS: BP 137/66; PULSE 100; RESP 18; O2SAT 99
[2017-07-01] VITALS (11 sets, daily range): BP systolic 90–136; BP diastolic 53–82; PULSE 60–97; RESP 16–19; TEMP 97.9–98.7; O2SAT 97–100
[2017-07-01] MEDS ORDERED: SODIUM CHLORIDE 0.9% FLUSH 10 ML FLUSH IV FLUSH PRN (00:30)
[2017-07-01 01:25] LABS: TROPONIN I 0.07 NG/ML (0.02-0.05)
[2017-07-01 04:34] LABS: TROPONIN I 0.07 NG/ML (0.02-0.05)
[2017-07-01] MEDS ORDERED: ACETAMINOPHEN 500 MG CPLT PO PRN (10:00)
--- NOTE | 2017-07-01 10:02 | HHI.HP ---
[facility] Service [facility] Primary Care Physician Unknown Admission Diagnosis cp r/o ACS Diagnoses: Chief Complaint: Chest pain Travel History International Travel<30 Days: No Contact w/Intl Traveler <30 Da: No Traveled to Known Affected Are: No History of Present Illness Mr. Dove is a pleasant 71-year-old male with a history of CAD status post stent placement who presents to the emergency department on 06/30/2017 due to chest pain and palpitations that started around 7 PM. He was watching TV and when he got up, he started getting left-sided chest pain that was sharp in nature. He had some lightheadedness and he also felt pain down his left arm. His chest pain continued until around 2 AM. He denies any cough, abdominal pain , fever or chills. Review of Systems Except as stated in HPI: all other systems reviewed are Neg Past Family Social History Past Medical History Rheumatoid arthritis, CAD, asthma, COPD Past Surgical History Torn rotator cuff surgery, cataract surgery Reported Medications Hydrocodone-Acetamin 10-325 mg (Hydrocodone/Acetaminophen) 10 Mg-325 Mg Tablet 1 Tab PO Q4H PRN Reported Tramadol (Tramadol HCl) 50 Mg Tab 50 Mg PO Q4H PRN Prednisone 20 Mg Tab 20 Mg PO DAILY Allergies: Coded Allergies: levofloxacin (Verified Allergy, Severe, unknown, 06/30/17) patient has a cross sensitvity to avelox morphine (Verified Allergy, Severe, UNKNOWN, 06/30/17) moxifloxacin (Verified Allergy, Severe, Anaphylaxis, 06/30/17) penicillin G (Verified Allergy, Severe, rash, 06/30/17) sulfamethoxazole (Verified Allergy, Severe, RASH, 06/30/17) trimethoprim (Verified Allergy, Severe, RASH, 06/30/17) cefuroxime (Verified Adverse Reaction, Intermediate, Rash, 06/30/17) Family History No family history of heart disease. Social History Patient does not use tobacco or illicit drugs. Uses alcohol socially. Physical Exam Vital Signs Vital Signs Date Time Temp Pulse Resp B/P (MAP) Pulse Ox O2 Delivery O2 Flow Rate FiO2 07/01/17 08:27 98.2 70 18 93/56 (68) 99 07/01/17 01:44 96 17 110/59 (76) 98 Nasal Cannula 2.00 07/01/17 01:44 98.5 97 16 117/65 (82) 98 06/30/17 23:50 100 18 137/66 (89) 99 Nasal Cannula 2.00 06/30/17 23:00 108 16 127/63 (84) 98 Nasal Cannula 2.00 06/30/17 22:44 100 17 131/64 (86) 99 Nasal Cannula 2.00 06/30/17 22:44 17 06/30/17 22:00 100 17 175/74 (107) 99 Nasal Cannula 2.00 06/30/17 21:23 98 Room Air 06/30/17 21:18 100 Nasal Cannula 2.00 06/30/17 21:18 18 98 Room Air 06/30/17 21:13 98.3 95 19 109/73 (85) 100 Physical Exam GENERAL: This is a well-nourished, well-developed patient, in no apparent distress. SKIN: No rashes, ecchymoses or lesions. Warm and dry. HEAD: Atraumatic. Normocephalic. No temporal or scalp tenderness. EYES: Pupils equal round and reactive. No injection or drainage. ENT: Nose without bleeding, purulent drainage or septal hematoma. Airway patent. NECK: Trachea midline. No lymphadenopathy. Supple, nontender, no meningeal signs. CARDIOVASCULAR: Regular rate and rhythm without murmurs, gallops, or rubs. No JVD. RESPIRATORY: Clear to auscultation. Breath sounds equal bilaterally. No wheezes , rales, or rhonchi. GASTROINTESTINAL: Abdomen soft, non-tender, nondistended. No guarding. MUSCULOSKELETAL: Extremities without clubbing, cyanosis, or edema. NEUROLOGICAL: Awake and alert. Cranial nerves II through XII intact. No focal neurological deficits. Normal speech. Laboratory Laboratory Tests Test 06/30/17 21:29 06/30/17 22:55 07/01/17 00:45 07/01/17 03:30 White Blood Count 10.2 Red Blood Count 4.38 Hemoglobin 13.8 Hematocrit 39.9 Mean Corpuscular Volume 90.9 Mean Corpuscular Hemoglobin 31.4 Mean Corpuscular Hemoglobin Concent 34.6 Red Cell Distribution Width 14.0 Platelet Count 219 Mean Platelet Volume 7.8 Neutrophils (%) (Auto) 93.1 Lymphocytes (%) (Auto) 5.3 Monocytes (%) (Auto) 1.2 Eosinophils (%) (Auto) 0.1 Basophils (%) (Auto) 0.3 Neutrophils # (Auto) 9.5 Lymphocytes # (Auto) 0.5 Monocytes # (Auto) 0.1 Eosinophils # (Auto) 0.0 Basophils # (Auto) 0.0 CBC Comment DIFF FINAL Differential Comment Prothrombin Time 10.7 Prothromb Time International Ratio 1.1 Activated Partial Thromboplast Time 22.8 D-Dimer Quantitative (PE/DVT) LESS THAN 0.19 Blood Urea Nitrogen 14 Creatinine 1.15 Random Glucose 79 Total Protein 6.4 Albumin 3.3 Calcium Level 9.0 Magnesium Level 1.9 Alkaline Phosphatase 57 Aspartate Amino Transf (AST/SGOT) 25 Alanine Aminotransferase (ALT/SGPT) 25 Total Bilirubin 0.4 Sodium Level 143 Potassium Level 4.0 Chloride Level 104 Carbon Dioxide Level 31.9 Anion Gap 7 Estimat Glomerular Filtration Rate 63 Total Creatine Kinase 77 48 46 Troponin I LESS THAN 0.02 0.07 0.07 B-Type Natriuretic Peptide 124 Lipase 201 Urine Color YELLOW Urine Turbidity CLEAR Urine pH 6.5 Urine Specific [place] 1.020 Urine Protein NEG Urine Glucose (UA) 70 Urine Ketones NEG Urine Occult Blood SMALL Urine Nitrite NEG Urine Bilirubin NEG Urine Urobilinogen 2.0 Urine Leukocyte Esterase NEG Urine RBC 12 Urine WBC LESS THAN 1 Urine Mucus FEW Microscopic Urinalysis Comment CULT NOT INDICATED Result Diagram: 06/30/17212806/30/172128 Imaging Last Impressions Chest X-Ray 06/30/172118 Signed Impressions: Service Date/Time: Friday, June 30, 2017 21:35 - CONCLUSION: No acute cardiopulmonary disease. Degenerative changes and scoliosis of the thoracic spine. MD Sia Hanksi VTE Risk Assessment Caprini VTE Risk Assessment: No/Low Risk (score <= 1) Caprini Risk Assessment Model Point Value = 1 Point Value = 2 Point Value = 3 Point Value = 5 Age 41-60 Minor surgery BMI > 25 kg/m2 Swollen legs Varicose veins or History of unexplained or recurrent spontaneous Oral contraceptives or hormone replacement Sepsis (< 1 month) Serious lung disease, including pneumonia (< 1 month) Abnormal pulmonary function Acute myocardial infarction Congestive heart failure (< 1 month) History of inflammatory bowel disease Medical patient at bed rest Age 61-74 Arthroscopic surgery Major open surgery (> 45 min) Laparoscopic surgery (> 45 min) Malignancy Confined to bed (> 72 hours) Immobilizing plaster cast Central venous access Age >= 75 History of VTE Family history of VTE Factor V Leiden Prothrombin [id number] Lupus anticoagulant Anticardiolipin antibodies Elevated serum homocysteine Heparin-induced thrombocytopenia Other congenital or acquired thrombophilia Stroke (< 1 month) Elective arthroplasty Hip, pelvis, or leg fracture Acute spinal cord injury (< 1 month) Prophylaxis Regimen Total Risk Factor Score Risk Level Prophylaxis Regimen 0-1 Low Early ambulation 2 Moderate Order ONE of the following: *Sequential Compression Device (SCD) *Heparin 5000 units SQ BID 3-4 Higher Order ONE of the following medications: *Heparin 5000 units SQ TID *Enoxaparin/Lovenox 40 mg SQ daily (WT < 150 kg, CrCl > 30 mL/min) *Enoxaparin/Lovenox 30 mg SQ daily (WT < 150 kg, CrCl > 10-29 mL/min) *Enoxaparin/Lovenox 30 mg SQ BID (WT < 150 kg, CrCl > 30 mL/min) AND/OR *Sequential Compression Device (SCD) 5 or more Highest Order ONE of the following medications: *Heparin 5000 units SQ TID (Preferred with Epidurals) *Enoxaparin/Lovenox 40 mg SQ daily (WT < 150 kg, CrCl > 30 mL/min) *Enoxaparin/Lovenox 30 mg SQ daily (WT < 150 kg, CrCl > 10-29 mL/min) *Enoxaparin/Lovenox 30 mg SQ BID (WT < 150 kg, CrCl > 30 mL/min) AND *Sequential Compression Device (SCD) Assessment and Plan Assessment and Plan Mr. Dove is a pleasant 71-year-old male with a history of CAD status post stent placement who presents to the emergency department on 06/30/2017 due to chest pain and palpitations. Troponins were mildly elevated. Cardiology consulted. Chest pain -Troponin 0 0.02, 0.07, 0.07. Patient's cardiac history and symptoms are concerning for acute coronary syndrome. -Composing Room Machinist Apprentice Dr. Huitron evaluated patient and plans to do cardiac catheterization on 07/02/2017. -Continue aspirin 162 mg daily, atorvastatin 10 mg daily. -Continue diltiazem 30 mg every 6 hours and nitroglycerine as needed. -2D echo ordered. COPD, asthma -continue prednisone 20 mg daily. This is his chronic medication. Full code. Ambulation. Ruth Castro DO July 01, 2017 10:02 am
[2017-07-01] MEDS: ACETAMINOPHEN/HYDROcodone 325 MG/10 MG TAB PO PRN ×2 (11:36→18:58)
[2017-07-01] MEDS: SODIUM CHLORIDE 0.9% FLUSH 10 ML FLUSH IV FLUSH SCH ×2 (11:37→21:21)
[2017-07-01] MEDS: SODIUM CHLOR 0.9% 1000 ML INJ 1,000 ML IV SCH ×2 (11:56→21:56)
[2017-07-01] MEDS ORDERED: DIAZEPAM 5 MG TAB PO SCH (12:00)
[2017-07-01] MEDS ORDERED: diphenhydrAMINE HCL 25 MG CAP PO SCH (12:00)
[2017-07-01] MEDS: ASPIRIN 81 MG CHEW TAB CHEW SCH (12:33)
--- NOTE | 2017-07-01 12:35 | MB ---
cc: Wallace Huitron MD DATE: 07/01/2017 REASON FOR CONSULTATION: For evaluation of chest pain and elevated troponin. HISTORY OF PRESENT ILLNESS: Gui Dove is a 71-year-old man with known coronary artery disease. He comes in now with chest pain and elevated troponin. Yesterday, he got up to adjust his TV set at about 7 p.m. He developed sharp pain in the left chest, difficulty breathing. He had to use his nebulizer, which did not help. He was lightheaded. The pain was severe in the left chest, radiating down the left arm. It lasted about 30 minutes. It was the first time he has ever had problems with chest pain. He says he really did not have any chest pain with his previous disease. He has a history of stenting of the LAD in 03/2015, which was a 2.5 x 14 mm Integrity stent, and then stenting of the right coronary artery on 05/16/2015, which was a 2.75 x 18 mm Integrity stent. He has been on Plavix, but apparently had been out of that 4 days. PAST MEDICAL HISTORY: Includes COPD, coronary artery disease, paroxysmal atrial fibrillation, peripheral neuropathy particularly in the left leg, hyperlipidemia, hypertension, previous shingles involving the right arm, previous torn rotator cuff on the right. PAST SURGICAL HISTORY: Stent, sinus surgery. MEDICATIONS: Charted. From the office, he has been on diltiazem 30 q.i.d. He has been on prednisone. He is not on daily aspirin and I have ordered that. I have also ordered antianginal therapy for now. ALLERGIES: MORPHINE. PENICILLIN. FAMILY HISTORY: Negative for heart disease. SOCIAL HISTORY: He quit smoking in 1987. He has had occasional couple of beers. REVIEW OF SYSTEMS: Noncontributory. Denies any bleeding. Remaining review of systems negative. PHYSICAL EXAMINATION: GENERAL: A thin white male, in no acute distress. VITAL SIGNS: Charted. HEENT: Unremarkable. NECK: Shows no JVD. No bruits. CHEST: Shows diminished breath sounds. No wheezes or rales. CARDIAC: S1, S2. Regular rate and rhythm, without murmurs or gallops. ABDOMEN: Soft, nontender. EXTREMITIES: No clubbing, cyanosis or edema. It looks like the left thigh may be slightly atrophied compared to the right. Femoral and pedal pulses are intact. LABORATORY DATA: EKG shows sinus rhythm, left anterior fascicular block, incomplete right bundle branch block and no acute ST-T wave changes. Troponin initially was 0.02, but then alea to 0.07. Hematocrit is 39.9. Creatinine is 1.15. Chest x-ray was negative. Last nuclear stress test on 01/01/2017 was normal. IMPRESSION: A 71-year-old male with chest pain and has increased troponin from 0.02-0.07. PLAN: To perform a diagnostic catheterization tomorrow morning, initiate dual antianginal therapy with nitrates and diltiazem, start daily aspirin, start statin therapy, check lipid values. A 2-D echo Doppler is ordered. Informed consents were obtained for catheterization and possible intervention tomorrow morning. MD CHEVY Ashraf/MAURI , 12:13 PM , 12:34 PM
[2017-07-01] MEDS ORDERED: RESP: ALBUTEROL 2.5 MG/IPRATROPIUM 0.5 MG NEB (PRN) NEB (15:45)
--- NOTE | 2017-07-01 16:19 | EKG ---
Date Performed: 06/30/2017 Time Performed: 21:14:40 PTAGE: 71 years EKG: Sinus rhythm WITH OCCASIONAL SUPRAVENTRICULAR PREMATURE COMPLEXES INCOMPLETE RIGHT BUNDLE BRANCH BLOCK LEFT ANTER IOR FASCICULAR BLOCK ABNORMAL ECG PREVIOUS TRACING : 05/16/2017 12.54 Since previous tracing, no significant change noted DOCTOR: Huseyin Reynolds Interpretating Date/Time 07/01/2017 16:16:24
--- NOTE | 2017-07-01 16:20 | EKG ---
Date Performed: 07/01/2017 Time Performed: 00:42:56 PTAGE: 71 years EKG: SINUS TACHYCARDIA WITH OCCASIONAL VENTRICULAR PREMATURE COMPLEXES INCOMPLETE RIGHT BUNDLE B RANCH BLOCK LEFT ANTERIOR FASCICULAR BLOCK ABNORMAL ECG PREVIOUS TRACING : 06/30/2017 21.14 Since previous tracing, no significant change noted DOCTOR: Huseyin Reynolds Interpretating Date/Time 07/01/2017 16:17:26
--- NOTE | 2017-07-01 16:20 | EKG ---
Date Performed: 07/01/2017 Time Performed: 03:28:39 PTAGE: 71 years EKG: Sinus rhythm INCOMPLETE RIGHT BUNDLE BRANCH BLOCK LEFT ANTERIOR FASCICULAR BLOCK ABNORMAL ECG PREVIOUS TRACING : 07/01/2017 00.42 Since previous tracing, no significant change noted DOCTOR: Huseyin Reynolds Interpretating Date/Time 07/01/2017 16:18:18
[2017-07-01] MEDS: DILTIAZEM HCL 30 MG TAB PO SCH (18:56)
[2017-07-01] MEDS: NITROGLYCERIN 2% OINT 1 GM PACKET TOPICAL SCH (18:56)
[2017-07-02] VITALS (16 sets, daily range): BP systolic 112–124; BP diastolic 60–71; PULSE 63–74; RESP 16–18; TEMP 97.7–99.2; O2SAT 93–99
[2017-07-02] MEDS: DILTIAZEM HCL 30 MG TAB PO SCH ×4 (00:12→17:13)
[2017-07-02] MEDS: NITROGLYCERIN 2% OINT 1 GM PACKET TOPICAL SCH ×4 (00:12→15:40)
[2017-07-02] MEDS: ACETAMINOPHEN/HYDROcodone 325 MG/10 MG TAB PO PRN ×4 (00:12→19:35)
[2017-07-02] MEDS: SODIUM CHLOR 0.9% 1000 ML INJ 1,000 ML IV SCH (06:12)
[2017-07-02] MEDS ORDERED: HEPARIN-NS/PF FLUSH BAG 2,000 ML IV FLUSH ONE (06:33)
[2017-07-02] MEDS ORDERED: VERAPAMIL HCL 5 MG/2 ML VIAL ONE (06:38)
[2017-07-02] MEDS ORDERED: HEPARIN SODIUM - IV 10,000 UNITS/10 ML VIAL ONE (06:38)
[2017-07-02 06:42] LABS: BICARBONATE 27.9 MEQ/L (21.0-32.0); CHOLESTEROL/ HDL RATIO 4.34 RATIO; CREATININE 0.85 MG/DL (0.60-1.30)
[2017-07-02] MEDS ORDERED: MIDAZOLAM HCL 2 MG/2 ML VIAL ONE (07:16)
[2017-07-02] MEDS ORDERED: MISC INFORMATION XX ONE (08:15)
[2017-07-02] MEDS ORDERED: SODIUM CHLORIDE 0.9% FLUSH 10 ML FLUSH IV FLUSH PRN ×3 (08:15→17:30)
[2017-07-02] MEDS ORDERED: ONDANSETRON HCL 4 MG/2 ML VIAL IV PUSH PRN (08:15)
--- NOTE | 2017-07-02 08:32 | CATHPROC ---
[employer] HIS Report Study Information Study Number Admission Scheduled Start Study Start [id number] Jun 30 2017 11:38PM 07/02/2017 Jul 02 2017 7:01AM [facility] Service Cardiac Catheterization Admit Source Facility Department Emergency department [facility] - [facility] Physician and Clinical Staff Initial Wallace Raza Supervisor Prep Terrell Pichardo RN Supervisor Prep Elliott RN, Ariel Recorder Lluvia Francisco,RT(R) Scrub Alma Monroe,RT(R) Procedures Performed Procedure Location (Site) Vessel Name Coronary Angiograms LCA Left Coronary Coronary Angiograms RCA Right Coronary L Heart Cath Wire insertion Fem Art (right) Femoral Art Equipment Time Wafer Batter Mixer Description Size Mfg Part Number Used/Scraped TRANSDUCER, TRUWAVE [id number] 07:05 [employer] GAYTAN * Used W/STOCKCOCK *[id number] *[id number] *[id number] PIGTAIL ANG. 145 INFINITI [id number] CATHETER *[id number] 07:05 [employer] INDUSTRIES PACK, CCL CUSTOM * Used *[id number] 07:05 [employer] PACER PEN, SKIN DUAL W/ RULER * Used *[id number] 07:05 [employer] SHEATH, FR6.5 PRELUDE 11CM FR 6.5 038ACT Used *[id number] 07:05 [employer] WIRE, 3MMJ .035 180CM 180CM Used *[id number] 07:05 NAMIC MANIFOLD, 4 PORT * Used *[id number] 07:05 [employer] OMNIPAQUE, 350 MG, 150ML 150ML [id number] Used [id number] 07:05 [employer],WARM AIR CCL * Used *[id number] History: Current Medications Medication Dosage/Unit Route Frequency Last Date/Time Taken ASA Statins (any) History: Allergies Allergy Reaction Avelox Anaphylaxis Bactrim RASH Cefuroxime sodium Rash Levaquin unknown morphine UNKNOWN Penicillin rash sulfamethoxazole RASH trimethoprim RASH cefuroxime Rash penicillin G rash levofloxacin unknown moxifloxacin Anaphylaxis History: Risk Factors Family History of Hypertension Dyslipidemia Previous [place] Previous Heart Failure Premature CAD Yes Yes No No No Prior Valve Prior PCI Prior PCIDate Prior CABG Surgery No Yes 02/25/2015 No Cerebrovascular Peripheral Artery Chronic Lung On Dialysis Diabetes Disease Disease Disease No Yes Yes Yes No History: Symptoms/Diagnosis Selection Items Chest pain History: CV Disease Selection Items Known CAD History: Stress Tests Stress or Imaging Studies Performed No History: Other Disease Selection Items CAD History: Other Current Smoker Method Quit Packs a Day Years Used Pack Years No Cigarettes 30 Years Ago 2 29 58 Labs Hgb (g/dl) Hct (%) RBC (MIL/MM3) WBC (l/cumm) Platelets (thousands) 11.60-17.00 35.00-51.00 4.00-5.90 4.00-11.00 150.00-450.00 13.8 39.9 4.3 10.2 219 Glucose (mg/dl) BUN (mg/dl) Creatinine (mg/dl) BUN:Creatinine (1:x) 74.00-106.00 7.00-18.00 0.50-1.30 10.00-20.00 79 13 0.8 16.3 Na (meq/l) K (meq/l) Cl (meq/l) CO2 (mmol/L) Ca (mg/dl) 136.00-145.00 3.50-5.10 98.00-107.00 21.00-32.00 8.50-10.10 142 3.7 106 27.9 8 PT (sec) PTT (sec) INR (PTT:PT) 9.80-11.60 24.30-30.10 0.90-1.10 10.7 22.8 1.1 Troponin I (ng/ml) CPK (u/l) CPK-MB (ng/ML) 0.02-0.05 26.00-308.00 0.50-3.60 0.07 46 Not Drawn Medication Medication Total Dose (Bolus/Oral) Medication Total Dosage/Unit 1% XYLOCAINE 20 mL Medications (Bolus/Oral) Medication Time Given Dosage/Unit Administered By Reason 1% XYLOCAINE 07/02/2017 7:50:00 AM 20 mL Wallace Huitron 20 mL 1% XYLOCAINE given in lab by Wallace Huitron in Right Groin via Subcutaneous. Medication (Drip) Medication Time Given Dosage/Unit Concentration/Unit Diluent (ml) Solution IV Solutions 07/02/2017 7:02:22 AM 0 mL (IV) 1000 NaCl .9 Patient arrived on IV Solutions in Left Antecubital via Peripheral IV. Pump/Drip Flow = 20 ml/hr usin g NaCl .9. Initial Case Assessment Cardiovascular HR Rhythm NIBP 73 reg 103/57 Edema Present Skin color Skin None Normal Warm Clammy Circulatory - Right Pulses Dorsalis Pedis Femoral 2 2 Scale (0,1,2,3,4,d) Circulatory - Left Pulses Dorsalis Pedis Femoral 1 2 Scale (0,1,2,3,4,d) Circulatory - Lower Extremities Color Lower Right Color Lower Left Normal Normal Neurological State Oriented to time-place- Alert Moves all extremities person Respiration - General Respiration Rate SpO2 (%) O2 (lpm) (B/min) 12 98 2 Final Case Assessment Cardiovascular HR Rhythm NIBP Chest Pain 69 reg 112/61 0 Edema Present Skin color Skin None Normal Warm Circulatory - Right Pulses Dorsalis Pedis Femoral 2 2 Scale (0,1,2,3,4,d) Circulatory - Left Pulses Dorsalis Pedis Femoral 1 2 Scale (0,1,2,3,4,d) Circulatory - Lower Extremities Color Lower Right Color Lower Left Normal Normal Neurological State Oriented to time-place- Alert Moves all extremities person Respiration - General Respiration Rate SpO2 (%) O2 (lpm) (B/min) 12 98 2 Chronological Log Time Study Chronological Log 7:01:44 Patient arrived via Bed. 7:01:45 Patient Name, D.O.B, / Armband Verified By R.N. 7:01:55 Consent signed by the physician and the patient and verified by the [facility] staff. 7:02:00 Pre-op and post- op instructions given; patient acknowledges understanding of instructions. 7:02:07 Verbal Stimulation=2 Physical Stimulation=2 Airway=2 Respiration=2 TOTAL=8. (0=absent, 1=li mited, 2=present) 7:02:09 Presedation assessment performed by [facility] RN. 7:02:15 Patient has been NPO for More than 6Hrs. 7:02:18 Skin Breakdown-none 7:02:18 Patient Warmer Placed on the Table. 7:02:20 Arti Prominences Protected 7:02:22 A # 18 IV was noted in the Antecubital (left). Grade = 0 7:02:22 Patient arrived on IV Solutions in Left Antecubital via Peripheral IV. Pump/Drip Flow = 20 ml/hr using NaCl .9. 7:02:23 History and physical on the chart or being dictated. Assessment: Initial Case, HR=73 BPM, Rhythm=reg, KZUN=648/57 mmhg, Edema=None, Color=Normal, Ski n = Warm, Clammy Right Pulses: Lance Ped=2, Femoral=2 Left Pulses: Lance Ped=1, Femoral=2 7:02:24 Lower Right Extremities: Color=Normal Lower Left Extremities: Color=Normal Neurological: State=Alert, Ox3, FORTE Respiration: Resp=12 B/min, SpO2=98 %, O2=2 lpm 7:04:00 power injector loaded now by joseph francisco and verified by sanjeev ledezma Vitals capture started with the following parameters, Patient=Adult, Interval=5 min, Initial Pre ujjhw=418 mmHg, 7:12:38 Deflation Rate=5 mmHg, Cuff placed on Unknown 7:13:18 HR=74 bpm, WMOY=899/57 mmhg, SpO2=98.0 %, Resp=8 B/min, Pain=0, Rashaun=10, Hinkle=2 7:13:34 pt arrived with a nirto patch on right upper arm but was removed by sleep lab technologist RN 7:14:37 Reference ECG taken 7:18:48 HR=83 bpm, FBAG=631/61 mmhg, SpO2=98.0 %, Resp=10 B/min, Pain=0, Rashaun=10, Hinkle=2 7:20:07 Pressure channel 1 zeroed. 7:23:11 MD paged 7:23:12 HR=66 bpm, UQBP=584/59 mmhg, SpO2=98.0 %, Resp=8 B/min, Pain=0, Rashaun=10, Hinkle=2 7:24:45 A # 18 IV was noted in the Wrist (left). Grade = 0 saline locked 7:25:16 MD responded will be 15 min late 7:28:11 HR=65 bpm, PAHK=329/57 mmhg, SpO2=97.0 %, Resp=8 B/min, Pain=0, Rashaun=10, Hinkle=2 7:33:12 HR=70 bpm, RUTG=670/59 mmhg, SpO2=98.0 %, Resp=8 B/min, Pain=0, Rashaun=10, Hinkle=2 7:38:13 HR=72 bpm, NTRF=301/55 mmhg, SpO2=97.0 %, Resp=11 B/min, Pain=0, Rashaun=10, Hinkle=2 7:43:47 HR=64 bpm, UIXC=716/60 mmhg, SpO2=98.0 %, Resp=13 B/min, Pain=0, Rashaun=10, Hinkle=2 7:44:38 MD arrived. 7:48:15 HR=64 bpm, MNAQ=775/60 mmhg, SpO2=98.0 %, Resp=9 B/min, Pain=0, Rashaun=10, Hinkle=2 Time Out. Correct patient, correct procedure, correct physician, power injector loaded with cont rast with surgical team 7:48:44 present. Time Out Concurred by MD and individual staff in procedure. 7:49:48 Case Start 7:49:54 Verbal Stimulation=2 Physical Stimulation=2 Airway=2 Respiration=2 TOTAL=8. (0=absent, 1=flores ited, 2=present) 7:50:00 20 mL 1% XYLOCAINE given in lab by Wallace Huitron in Right Groin via Subcutaneous. 7:52:41 Access site was Right Femoral Artery. 7:52:59 A wire was inserted via Fem Art (right). 7:53:12 A SHEATH, FR6.5 PRELUDE 11CM FR 6.5 was advanced into the Fem Art (right) using the Percutan eous technique. 7:53:16 HR=72 bpm, ZHRJ=106/53 mmhg, SpO2=98.0 %, Resp=10 B/min, Pain=0, Rashaun=10, Hinkle=2 A PIGTAIL ANG. 145 INFINITI CATHETER FR 6 was advanced over a wire. OMNIPAQUE, 350 MG, 150ML 150 ML was 7:53:33 used for injections. Recorded Pressure: LV, HR=69, Condition=Condition 1 7:53:43 (Left Ventricle) LV 104/6/8 Recorded Pressure: LV, Ao, HR=70, Condition=Condition 1 7:55:15 (Left Ventricle) LV 109/0/8, (Aorta) Ao 110/50/75 7:55:38 Catheter was removed A JL 5.0 INFINITI CATHETER FR 6 was advanced over a wire. OMNIPAQUE, 350 MG, 150ML 150ML was use d for 7:56:04 injections. Recorded Pressure: Ao, HR=67, Condition=Condition 1 7:57:20 (Aorta) Ao 116/55/79 7:57:36 The LCA was injected and visualized at various angles. OMNIPAQUE, 350 MG, 150ML 150ML used. 7:58:15 HR=69 bpm, RDRH=688/60 mmhg, SpO2=98.0 %, Resp=9 B/min, Pain=0, Rashaun=10, Hinkle=2 8:00:20 Catheter was removed A 3DRC INFINITI CATHETER FR 6 was advanced over a wire. OMNIPAQUE, 350 MG, 150ML 150ML was use d for 8:00:52 injections. 8:02:11 The RCA was injected and visualized at various angles. OMNIPAQUE, 350 MG, 150ML 150ML use d. 8:03:14 HR=71 bpm, TNWG=839/61 mmhg, SpO2=98.0 %, Resp=7 B/min, Pain=0, Rashaun=10, Hinkle=2 8:04:53 Catheter was removed 8:07:05 Case End Assessment: Final Case, HR=69 BPM, Rhythm=reg, QPFG=004/61 mmhg, Chest Pain=0, Edema=None, Col or=Normal, Skin = Warm Right Pulses: Lance Ped=2, Femoral=2 Left Pulses: Lance Ped=1, Femoral=2 8:07:08 Lower Right Extremities: Color=Normal Lower Left Extremities: Color=Normal Neurological: State=Alert, Ox3, FORTE Respiration: Resp=12 B/min, SpO2=98 %, O2=2 lpm 8:08:13 HR=65 bpm, PKJR=009/69 mmhg, SpO2=98.0 %, Resp=9 B/min, Pain=0, Rashaun=10, Hinkle=2 8:08:26 Catheter(s) removed without difficulty 8:08:29 Sheath removed; pressure applied to access site. L stone 8:08:43 Sterile dressing applied to site 8:08:44 No case complications noted. 8:08:45 Cine recording checked. 8:08:47 Bedside Report will be given. 8:08:52 Verbal Stimulation=2 Physical Stimulation=2 Airway=2 Respiration=2 TOTAL=8. (0=absent, 1=l imited, 2=present) 8:09:02 A Left Heart Cath was performed. 8:09:08 Clinical correlaton risk stratification. 8:13:16 HR=67 bpm, ZQTA=498/60 mmhg, SpO2=97.0 %, Resp=9 B/min, Pain=0, Rashaun=10, Hinkle=2 8:18:15 HR=71 bpm, IHAR=289/60 mmhg, SpO2=98.0 %, Resp=7 B/min, Pain=0, Rashaun=10, Hinkle=2 End Study - Contrast Media Used In Study Contrast Total Opened (mL) Total Used (mL) Total Wasted (mL) Omnipaque 60 60 0 End Study - Maximum Contrast Load Max Contrast Load (mL) 437.5 End Study - Radiation Exposure Fluoro Time (minutes) 2.2 End Study - Sheaths Sheaths Pulled By Sheath Hold Time (min) Alma Monroe 20 End Study - Patient Disposition Complications Transferred To Interventional Outcome No Regular Bed No attempt made
[2017-07-02] MEDS: SODIUM CHLORIDE 0.9% FLUSH 10 ML FLUSH IV FLUSH SCH (09:00)
--- NOTE | 2017-07-02 09:17 | MA ---
cc: Wallace Huitron MD, Beth A MD DATE: 07/02/2017 PROCEDURES PERFORMED: 1. Left heart catheterization. 2. Left ventriculography. 3. Coronary angiography, right femoral angiographic approach. DESCRIPTION OF PROCEDURE: The patient was brought to the cardiac catheterization lab in a fasting state. The right groin was prepped and draped in sterile fashion. Using 1% lidocaine for local anesthesia, a 6-1/2 [place] sheath was easily inserted. There was noted to be significant iliac calcification. An exchange wire technique was used for the case. LV pressure and LV gram on pullback performed with the pigtail catheter. Coronary angiography was completed with a left 5 and 3DRC catheters. A 3-vessel disease, catheterization was stopped. At this point, sheath is being pulled manually. There were no complications. Total contrast load was 60 mL. FINDINGS: 1. HEMODYNAMICS: The LV pressure is 109/0 with an end diastolic pressure of 8. Aortic pressure is 116/55 with a mean of 79. There was no gradient on pullback. 2. LEFT VENTRICULOGRAPHY: Left ventriculography shows mild global hypokinesis. Estimated ejection fraction is about 40%. 3. CORONARY ANGIOGRAPHY: Left main coronary artery appears normal. It bifurcates into the LAD and circumflex vessels. The LAD has a smooth, 60% proximal in-stent stenosis as well as a focal 60% mid stenosis and distally appears easily graftable. There is a very small bifurcating diagonal branch with 70% disease. Circumflex artery gives off a large first obtuse marginal branch, which is highly angulated and has at least 90% stenosis that is tubular. There is a very tiny second obtuse marginal branch, which has 95% stenosis, but it is tiny. The distal circumflex artery is angulated but has only irregularities. The right coronary artery is dominant. This vessel demonstrates a 70% proximal in-stent restenosis as well as a 70% mid stenosis. Distally appears well suited for grafting. CONCLUSIONS: 1. Mildly impaired left ventricular function. 2. Normal hemodynamics. 3. Three vessel coronary artery disease with particularly complex disease involving the circumflex marginal branch due to angulation. PLAN: We will get a CT surgical consult for consideration of bypass surgery. MD CHEVY Ashraf/TL , 08:31 AM , 09:16 AM
[2017-07-02] MEDS ORDERED: BACITRACIN OINT 0.9 GM PKT TOP ONE (09:30)
[2017-07-02] MEDS ORDERED: SODIUM CHLOR 0.9% 1000 ML INJ 1,000 ML IV SCH (10:00)
[2017-07-02] MEDS ORDERED: CHLORHEXIDINE GLUCONATE 4% SOLN 120 ML BTL TOPICAL SCH (10:15)
[2017-07-02] MEDS ORDERED: DEXTROSE 50% IN WATER 50 ML VIAL(D50) IV PUSH PRN (10:15)
[2017-07-02] MEDS ORDERED: INSULIN REGULAR (IV INFUSION) 100 UNITS in SODIUM CHLORIDE 0.9% INJ 99 ML IV PRN (10:15)
[2017-07-02] MEDS ORDERED: VANCOMYCIN INJ 1,000 MG in SODIUM CHLORIDE 0.9% IRR BTL 1,000 ML IRRIGATION SCH (10:15)
[2017-07-02] MEDS ORDERED: METOPROLOL TARTRATE 25 MG TAB PO SCH (10:15)
[2017-07-02] MEDS ORDERED: VANCOMYCIN INJ 1,250 MG in SODIUM CHLOR 0.9% 250 ML INJ 250 ML IV SCH (10:15)
[2017-07-02] MEDS ORDERED: PAPAVERINE INJ 60 MG, NITROGLYCERIN INJ 100 MCG, DILTIAZEM INJ 100 MG in SODIUM CHLORID... IRRIGATION SCH (10:15)
--- NOTE | 2017-07-02 10:52 | PD.CAR.PN ---
CVT Progress Note Subjective/Hospital Course: pt seen and eval full consult to follow sts data discussed with pt pulm workup pending RISK SCORES About the STS Risk Calculator Procedure: CAB Only Risk of Mortality: 2.248% Morbidity or Mortality: 15.901% Long Length of Stay: 7.827% Short Length of Stay: 32.413% Permanent Stroke: 0.796% Prolonged Ventilation: 11.274% DSW Infection: 0.476% Renal Failure: 1.616% Reoperation: 7.511% Objective: Vital Signs Date Time Temp Pulse Resp B/P (MAP) Pulse Ox O2 Delivery O2 Flow Rate FiO2 07/02/17 08:41 99 Room Air 07/02/17 03:53 98.8 65 16 124/62 (82) 99 07/02/17 01:12 18 07/02/17 00:00 99.2 74 18 112/67 (82) 98 07/01/17 23:00 63 07/01/17 22:10 97 07/01/17 20:00 98.7 73 17 97/55 (69) 97 07/01/17 20:00 63 07/01/17 17:52 98.0 64 18 136/82 (100) 100 07/01/17 16:14 60 07/01/17 14:35 97.9 74 19 90/53 (65) 98 07/01/17 14:29 21 07/01/17 12:55 72 07/01/17 12:00 98.5 77 18 117/55 (75) 98 Labs: Laboratory Tests Test 07/02/17 06:01 Blood Urea Nitrogen 13 MG/DL (7-18) Creatinine 0.85 MG/DL (0.60-1.30) Random Glucose 79 MG/DL (74-106) Calcium Level 8.0 MG/DL (8.5-10.1) Sodium Level 142 MEQ/L (136-145) Potassium Level 3.7 MEQ/L (3.5-5.1) Chloride Level 106 MEQ/L (98-107) Carbon Dioxide Level 27.9 MEQ/L (21.0-32.0) Anion Gap 8 MEQ/L (5-15) Estimat Glomerular Filtration Rate 89 ML/MIN (>89) Triglycerides Level 182 MG/DL (42-150) Cholesterol Level 178 MG/DL (120-200) LDL Cholesterol 101 MG/DL (0-99) HDL Cholesterol 41.0 MG/DL (40.0-60.0) Cholesterol/HDL Ratio 4.34 RATIO Result Diagram: 06/30/17 2129 07/02/17 0601 Susan Guevara July 02, 2017 10:52
--- NOTE | 2017-07-02 10:52 | MB ---
cc: Susan Guevara Cary H MD DATE: 07/02/2017 HISTORY OF PRESENT ILLNESS: Mr. Dove is a 71-year-old male patient of [facility], Dr. Fajardo' group. He presented to the emergency room with chest pain. Apparently came in last evening. The pain started about 7 p.m. as a sharp pain in his left chest, short of breath. He tried to use his nebulizer which did not seem to help. He felt a little bit lightheaded. The pain started to radiate down his left arm, lasted about for 30 minutes. He has had history of coronary artery disease and has prior stenting x 3. He is normally on Plavix, but says he has run out of it for the last few days. His last dose was on Saturday. Troponins in the ED are 0.07. The patient underwent cardiac catheterization by Dr. Huitron, which showed an EF of 40%, proximal LAD 60% in stenosis, mid distal LAD 60%, diagonal was small at 70%, the OM 90%, the RCA 70%. There was also a small OM2 which had a 95% lesion. We were consulted to evaluate for coronary artery bypass grafting. PAST MEDICAL HISTORY: Includes coronary artery disease with prior DC, paroxysmal atrial fibrillation, peripheral neuropathy, hyperlipidemia, hypertension, history of shingles involving the right arm in the past. Previous torn rotator cuff on the right. PAST SURGICAL HISTORY: Surgeries include stenting x 3 to the LAD and the RCA. ALLERGIES: THE PATIENT'S ALLERGIES INCLUDE: LEVAQUIN, MORPHINE, PENICILLIN, SULFA, AND CEFUROXIME. MEDICATIONS: The patient's home medications include: Hydrocodone, tramadol, prednisone 20, Plavix 75. FAMILY HISTORY: Mother at 88 from old age. Father at 57 from colon cancer. SOCIAL HISTORY: The patient is single. His ex- is . He has 2 children. He smoked for about 12 years, 2 packs per day, quit 29 years ago. Occasional alcohol. He does drive. Takes care of his cooking and cleaning at home; however, when he goes shopping, he uses a scooter. He does easily becomes short of breath. He was told in the past that his COPD was very significant. He does have a nebulizer at home that he uses twice a day. He does have an oxygen machine, but it is not working so currently he has not been using oxygen for the last couple of years. REVIEW OF SYSTEMS: GENERAL: No night sweats, fever, heat and cold intolerance. SKIN: No psoriasis, itching or hives. HEENT: No blurred vision or hearing loss. RESPIRATORY: Positive for chronic shortness of breath. No cough. CARDIOVASCULAR: As above in the HPI. GASTROINTESTINAL: No diarrhea or vomiting. GENITOURINARY: No burning, frequency or urgency. TANNING SALON ATTENDANT: No history of TIA, CVA or seizure disorder. ENDOCRINOLOGY: No history of diabetes or hypothyroidism. PHYSICAL EXAMINATION: VITAL SIGNS: Blood pressure 124/60, heart rate is 60, temperature T-max 98.8, room air sat 99. GENERAL: The patient is awake and alert in no acute distress. HEENT: Normocephalic, atraumatic. Pupils equal and reactive. Oral mucosa pink, moist. NECK: Supple. No JVD. HEART: Heart sounds S1, S2. Regular rate and rhythm. No rubs, murmurs or gallops. LUNGS: Slightly diminished in the bases, otherwise clear to auscultation. No wheezes, rales or rhonchi. ABDOMEN: Soft, nontender, no masses or organomegaly. EXTREMITIES: No cyanosis, clubbing, or edema. LABORATORY DATA: Shows hemoglobin 13, hematocrit 39, white cell count of 10.2 and platelet count of 219. Sodium 142, potassium 3.7, BUN of 8, creatinine 13. Troponin 0.07. Triglycerides 182, cholesterol 178, LDL 101. INR 1.1. Urinalysis is unremarkable. Chest x-ray, some degenerative changes with some scoliosis of the thoracic spine. IMPRESSION: This is a 71-year-old male with known coronary disease, prior stenting x 3 to the LAD and the RCA presenting with chest pain, mildly elevated troponin, ruled in for a non-STEMI. The films have been evaluated by Dr. Temi Shaw. PLAN: The plan will be for coronary artery bypass grafting x 3; however, he needs a more significant workup with PFTs, baseline ABG and possible pulmonary clearance secondary to his long-term COPD disease. Further plan per Dr. Shaw. The SCS will be calculated and placed in the electronic record. JOSEF Saravia, JRT/DL , 10:27 AM , 10:52 AM
[2017-07-02] MEDS ORDERED: PILL SPLITTER OTHER PRN (11:15)
[2017-07-02] MEDS ORDERED: PAPAVERINE INJ 60 MG, NITROGLYCERIN INJ 100 MCG, VERAPAMIL INJ 100 MG in SODIUM CHLORID... IRRIGATION SCH (11:30)
[2017-07-02] MEDS: ATORVASTATIN 10 MG TAB PO SCH (12:10)
[2017-07-02] MEDS: ASPIRIN 81 MG CHEW TAB CHEW SCH (12:10)
[2017-07-02] MEDS: predniSONE 20 MG TAB PO SCH (12:11)
[2017-07-02 13:37] LABS: AUTOMATED NEUTROPHIL # 4.8 TH/MM3 (1.8-7.7); BASOPHIL % 0.6 % (0.0-2.0); EOSINOPHIL # 0.1 TH/MM3 (0-0.4); EOSINOPHIL % 1.4 % (0.0-4.0); HEMATOCRIT 39.2 % (39.0-51.0); LYMPH % 14.4 % (9.0-44.0); LYMPHOCYTE # 0.9 TH/MM3 (1.0-4.8); MEAN CELL VOLUME 91.1 FL (80.0-100.0); MEAN CORPUSCULAR HEMOGLOBIN 30.2 PG (27.0-34.0); MEAN CORPUSCULAR HGB CONC 33.2 % (32.0-36.0); MEAN PLATELET VOLUME 7.8 FL (7.0-11.0); MONO % 10.1 % (0.0-8.0); MONOCYTE # 0.7 TH/MM3 (0-0.9); NEUT % 73.5 % (16.0-70.0); PLATELET COUNT 180 TH/MM3 (150-450); RED CELL DISTRIBUTION WIDTH 14.3 % (11.6-17.2); WHITE BLOOD COUNT 6.5 TH/MM3 (4.0-11.0)
--- NOTE | 2017-07-02 16:12 | RADRPT ---
EXAM DATE/TIME: 07/02/2017 13:58 [facility] COMPARISON: No previous studies available for comparison. INDICATIONS : Preop cardiac surgery. MEDICAL HISTORY : [place]. CAD. COPD. Torn rotator cuff. RA. SURGICAL HISTORY : Cardiac catheterization. Coronary stent. Herniorrhaphy. ENCOUNTER: Initial ACUITY: 1 day PAIN SCORE: 10 LOCATION: Bilateral leg. TECHNIQUE: Venous ultrasound of the left and right leg was performed from the inguinal ligament to the proximal calf. Real-time, color Doppler and spectral tracing, compression and augmentation techniques were us ed. FINDINGS: RIGHT LEG: There is normal compressibility of the deep venous system from the inguinal region to the proximal ca lf. No echogenic clot is seen in the lumen of the common femoral, femoral, popliteal, and posterior tibial veins. There is a normal response of the venous system to proximal and distal augmentation an d respiration. LEFT LEG: There is normal compressibility of the deep venous system from the inguinal region to the proximal ca lf. No echogenic clot is seen in the lumen of the common femoral, femoral, popliteal, and posterior tibial veins. There is a normal response of the venous system to proximal and distal augmentation an d respiration. CONCLUSION: 1. No sonographic evidence for lower extremity DVT. Merrill Oliva MD on July 02, 2017 at 15:31 Board Certified Radiologist. This report was verified electronically.
--- NOTE | 2017-07-02 16:13 | RADRPT ---
EXAM DATE/TIME: 07/02/2017 14:07 [facility] COMPARISON: No previous studies available for comparison. INDICATIONS : Preop cardiac surgery. MEDICAL HISTORY : [place]. CAD. COPD. Torn rotator cuff. RA. SURGICAL HISTORY : Coronary stent. Herniorrhaphy. Cardiac catheterization. ENCOUNTER: Initial ACUITY: 1 day PAIN SCORE: 03/06 LOCATION: Bilateral leg. GREATER SAPHENOUS VEIN THIGH: PROXIMAL: Right 6 mm Left 5 mm MID: Right 2 mm Left 2 mm DISTAL: Right 1 mm Left 2 mm CALF: PROXIMAL: Right Non-visualized Left Non-visualized MID: Right Non-visualized Left Non-visualized DISTAL: Right Non-visualized Left Non-visualized FINDINGS: The venous system of the lower extremities are patent by color Doppler imaging. Measurements of the leg veins (in mm) are listed above. CONCLUSION: 1. Lower extremity venous mapping, as above. Merrill Oliva MD on July 02, 2017 at 16:10 Board Certified Radiologist. This report was verified electronically.
--- NOTE | 2017-07-02 16:14 | RADRPT ---
EXAM DATE/TIME: 07/02/2017 13:55 [facility] COMPARISON: No previous studies available for comparison. INDICATIONS : Preop cardiac surgery. MEDICAL HISTORY : [place]. CAD. COPD. Torn rotator cuff. RA. SURGICAL HISTORY : Coronary stent. Cardiac catheterization. Herniorrhaphy. ENCOUNTER: Initial ACUITY: 1 day PAIN SCORE: 03/06 LOCATION: Bilateral neck PEAK SYSTOLIC VELOCITIES (cm/sec): ICA/CCA RATIO: Right: 1.2 Left: 0.9 ICA: Right: 85.5 Left: 98.4 CCA: Right: 70.9 Left: 104.2 ECA: Right: 144.6 Left: 86.5 VERTEBRAL: Right: 56.8 antegrade Left: 68.1 antegrade Elevated flow velocities and ICA/CCA ratios have been found to correlate with increased degrees of vessel stenosis, calculated as percentage of diameter relative to a normal segment of distal ICA/CCA FINDINGS: RIGHT CAROTID: No significant stenosis is visualized. The waveforms are within normal limits. LEFT CAROTID: No significant stenosis is visualized. The waveforms are within normal limits. VERTEBRAL ARTERIES: Antegrade flow is seen in both vertebral arteries. MISCELLANEOUS: None. CONCLUSION: 1. Mild bilateral carotid plaque with resultant mild, less than 50%, stenosis bilaterally. 2. Antegrade vertebral artery flow bilaterally. Merrill Oliva MD on July 02, 2017 at 16:11 Board Certified Radiologist. This report was verified electronically.
--- NOTE | 2017-07-02 17:28 | HHI.PR ---
Subjective Remarks Follow-up atypical chest pain July 02, 2017-patient seen and examined, status post left heart catheterization with finding of multivessel coronary disease for which cardiac thoracic surgery has been consulted Objective Vitals Vital Signs Date Time Temp Pulse Resp B/P (MAP) Pulse Ox O2 Delivery O2 Flow Rate FiO2 07/02/17 17:00 66 07/02/17 16:00 68 07/02/17 15:38 98.9 71 18 124/71 (88) 98 07/02/17 15:00 66 07/02/17 14:00 66 07/02/17 13:00 68 07/02/17 12:00 71 07/02/17 12:00 98.9 71 18 124/71 (88) 98 07/02/17 11:30 99 Room Air 07/02/17 08:41 99 Room Air 07/02/17 03:53 98.8 65 16 124/62 (82) 99 07/02/17 01:12 18 07/02/17 00:00 99.2 74 18 112/67 (82) 98 07/01/17 23:00 63 07/01/17 22:10 97 07/01/17 20:00 98.7 73 17 97/55 (69) 97 07/01/17 20:00 63 07/01/17 17:52 98.0 64 18 136/82 (100) 100 I/O 07/01/17 07/01/17 07/01/17 07/02/17 07/02/17 07/02/17 06:59 14:59 22:59 06:59 14:59 22:59 Intake Total 1900 ml Output Total 300 ml Balance 1600 ml Intake Oral 700 ml IV Total 1200 ml Output Urine Total 300 ml # Voids 1 # Bowel Movements 0 Result Diagram: 07/02/17 1309 07/02/17 0601 Imaging Last Impressions Lower Extremity Ultrasound 07/02/17 0000 Signed Impressions: Service Date/Time: Sunday, July 02, 2017 14:07 - CONCLUSION: 1. Lower extremity venous mapping, as above. Merrill Oliva MD Carotid Artery Ultrasound 07/02/17 0000 Signed Impressions: Service Date/Time: Sunday, July 02, 2017 13:55 - CONCLUSION: 1. Mild bilateral carotid plaque with resultant mild, less than 50%%, stenosis bilaterally. 2. Antegrade vertebral artery flow bilaterally. Merrill Oliva MD Chest X-Ray 06/30/171 Signed Impressions: Service Date/Time: Friday, June 30, 2017 21:35 - CONCLUSION: No acute cardiopulmonary disease. Degenerative changes and scoliosis of the thoracic spine. Mauricio Zamorano MD Objective Remarks GENERAL: NAD SKIN: Warm and dry. HEAD: Normocephalic. EYES: No scleral icterus. No injection or drainage. NECK: Supple, trachea midline. No JVD or lymphadenopathy. CARDIOVASCULAR: Regular rate and rhythm without murmurs, gallops, or rubs. RESPIRATORY: Breath sounds equal bilaterally. No accessory muscle use. GASTROINTESTINAL: Abdomen soft, non-tender, nondistended. MUSCULOSKELETAL: No cyanosis, or edema. BACK: Nontender without obvious deformity. No CVA tenderness. A/P Problem List: (1) Multi-vessel coronary artery stenosis ICD Code: I25.10 - Atherosclerotic heart disease of [place] coronary artery without angina pectoris (2) Chest pain, rule out acute myocardial infarction ICD Code: R07.9 - Chest pain, unspecified Status: Acute Assessment and Plan 71-year-old man with Multivessel coronary coronary artery stenoses Patient status post left heart catheterizations Cardiothoracic surgery has been consulted for evaluation for CABG Continue with Cardizem/Statin/ASA Chest pain -Troponin 0 0.02, 0.07, 0.07. Patient's cardiac history and symptoms are concerning for acute coronary syndrome. -Appreciate input from java grails developer Dr. Huitron and patient is s/p catheterization on 07/02/2017. -Continue aspirin 162 mg daily, atorvastatin 10 mg daily. -Continue diltiazem 30 mg every 6 hours and nitroglycerine as needed. -2D echo pending COPD, asthma -continue prednisone 20 mg daily. Full code. Ambulation. Mike Morales MD July 02, 2017 17:28
[2017-07-02] MEDS ORDERED: NALOXONE HCL 0.4 MG/ML AMP IV PUSH PRN (17:30)
[2017-07-02] MEDS ORDERED: MAGNESIUM HYDROXIDE SUSP 30 ML CUP PO PRN (17:30)
[2017-07-02] MEDS ORDERED: SODIUM CHLORIDE 0.9% FLUSH 10 ML FLUSH IV FLUSH SCH (21:00)
[2017-07-03] VITALS (26 sets, daily range): BP systolic 102–140; BP diastolic 59–76; PULSE 47–72; RESP 16–20; TEMP 97.8–98.5; O2SAT 97–99
[2017-07-03] MEDS: NITROGLYCERIN 2% OINT 1 GM PACKET TOPICAL SCH ×5 (01:32→18:00)
[2017-07-03] MEDS: DILTIAZEM HCL 30 MG TAB PO SCH ×4 (01:32→18:00)
[2017-07-03] MEDS: ACETAMINOPHEN/HYDROcodone 325 MG/10 MG TAB PO PRN ×4 (01:32→19:50)
[2017-07-03] MEDS: SODIUM CHLORIDE 0.9% FLUSH 10 ML FLUSH IV FLUSH SCH ×6 (01:33→19:52)
[2017-07-03 05:39] LABS: AUTOMATED NEUTROPHIL # 4.7 TH/MM3 (1.8-7.7); BASOPHIL % 0.3 % (0.0-2.0); EOSINOPHIL % 0.5 % (0.0-4.0); HEMATOCRIT 38.4 % (39.0-51.0); HEMOGLOBIN 12.9 GM/DL (13.0-17.0); LYMPH % 12.4 % (9.0-44.0); LYMPHOCYTE # 0.8 TH/MM3 (1.0-4.8); MEAN CELL VOLUME 90.6 FL (80.0-100.0); MEAN CORPUSCULAR HEMOGLOBIN 30.4 PG (27.0-34.0); MEAN CORPUSCULAR HGB CONC 33.5 % (32.0-36.0); MEAN PLATELET VOLUME 7.8 FL (7.0-11.0); MONO % 9.5 % (0.0-8.0); MONOCYTE # 0.6 TH/MM3 (0-0.9); NEUT % 77.3 % (16.0-70.0); PLATELET COUNT 184 TH/MM3 (150-450); RED BLOOD COUNT 4.24 MIL/MM3 (4.50-5.90); RED CELL DISTRIBUTION WIDTH 14.1 % (11.6-17.2); WHITE BLOOD COUNT 6.1 TH/MM3 (4.0-11.0)
[2017-07-03 06:06] LABS: BICARBONATE 30.5 MEQ/L (21.0-32.0); CALCIUM 8.7 MG/DL (8.5-10.1); CREATININE 0.75 MG/DL (0.60-1.30)
[2017-07-03] MEDS: ASPIRIN 81 MG CHEW TAB CHEW SCH (08:41)
[2017-07-03] MEDS: predniSONE 20 MG TAB PO SCH (08:41)
[2017-07-03] MEDS: ATORVASTATIN 10 MG TAB PO SCH (08:41)
--- NOTE | 2017-07-03 09:16 | HHI.PR ---
Subjective Remarks Follow-up CAD and COPD. States he is doing okay. Mild dyspnea on exertion after 200 m. He is on chronic prednisone 20 mg daily. Does not follow a pulmonary doctor. He is refusing ABG. He had PFTs yesterday. Discussed with nursing Objective Vitals Vital Signs Date Time Temp Pulse Resp B/P (MAP) Pulse Ox O2 Delivery O2 Flow Rate FiO2 07/03/17 08:00 54 07/03/17 08:00 98.0 71 18 118/64 (82) 97 07/03/17 07:00 58 07/03/17 06:00 54 07/03/17 05:00 50 07/03/17 04:00 97.9 54 16 102/62 (75) 97 07/03/17 04:00 47 07/03/17 03:00 50 07/03/17 02:00 52 07/03/17 01:00 54 07/03/17 00:00 56 07/03/17 00:00 97.8 57 18 133/68 (89) 98 07/02/17 23:00 66 07/02/17 22:00 68 07/02/17 21:00 64 07/02/17 20:36 93 07/02/17 20:00 64 07/02/17 20:00 97.7 71 18 112/60 (77) 97 07/02/17 19:00 63 07/02/17 18:00 70 07/02/17 17:00 66 07/02/17 16:00 68 07/02/17 15:38 98.9 71 18 124/71 (88) 98 07/02/17 15:00 66 07/02/17 14:00 66 07/02/17 13:00 68 07/02/17 12:00 71 07/02/17 12:00 98.9 71 18 124/71 (88) 98 07/02/17 11:30 99 Room Air I/O 07/02/17 07/02/17 07/02/17 07/03/17 07/03/17 07/03/17 07:00 15:00 23:00 07:00 15:00 23:00 Intake Total 2900 ml 480 ml Output Total 300 ml 425 ml Balance 2600 ml 55 ml Intake Oral 700 ml 480 ml IV Total 2200 ml Output Urine Total 300 ml 425 ml # Bowel Movements 0 0 Result Diagram: 5/9/18 0500 07/03/17 0500 Imaging Last Impressions Lower Extremity Ultrasound 07/02/17 0000 Signed Impressions: Service Date/Time: Sunday, July 02, 2017 14:07 - CONCLUSION: 1. Lower extremity venous mapping, as above. Merrill Oliva MD Carotid Artery Ultrasound 07/02/17 0000 Signed Impressions: Service Date/Time: Sunday, July 02, 2017 13:55 - CONCLUSION: 1. Mild bilateral carotid plaque with resultant mild, less than 50%%, stenosis bilaterally. 2. Antegrade vertebral artery flow bilaterally. Merrill Oliva MD Chest X-Ray 06/30/172118 Signed Impressions: Service Date/Time: Friday, June 30, 2017 21:35 - CONCLUSION: No acute cardiopulmonary disease. Degenerative changes and scoliosis of the thoracic spine. Mauricio Zamorano MD Objective Remarks SKIN: Warm and dry. HEAD: Normocephalic. EYES: No scleral icterus. No injection or drainage. NECK: Supple, trachea midline. No JVD or lymphadenopathy. CARDIOVASCULAR: Regular rhythm without murmurs, gallops, or rubs. Bradycardic RESPIRATORY: Breath sounds equal bilaterally. No accessory muscle use. GASTROINTESTINAL: Abdomen soft, non-tender, nondistended. MUSCULOSKELETAL: No cyanosis, or edema. BACK: Nontender without obvious deformity. No CVA tenderness. Procedures Cardiac catheterization A/P Problem List: (1) Multi-vessel coronary artery stenosis ICD Code: I25.10 - Atherosclerotic heart disease of [place] coronary artery without angina pectoris (2) Chest pain, rule out acute myocardial infarction ICD Code: R07.9 - Chest pain, unspecified Status: Acute Assessment and Plan 71-year-old man with Multivessel coronary coronary artery stenoses Patient status post left heart catheterizations Cardiothoracic surgery has been consulted for evaluation for CABG. Preop evaluation may need pulmonary clearance Continue with Cardizem/Statin/ASA unable to start beta-magda secondary to bradycardia and perhaps from COPD Chest pain -Troponin 0 0.02, 0.07, 0.07. Patient's cardiac history and symptoms are concerning for acute coronary syndrome. -Appreciate input from compressor station operator Dr. Huitron and patient is s/p catheterization on 07/02/2017. -Continue aspirin 162 mg daily, atorvastatin 10 mg daily. -Continue diltiazem 30 mg every 6 hours and nitroglycerine as needed. -2D echo pending COPD, asthma -continue prednisone 20 mg daily. Refused ABG. Follow-up PFT Full code. Ambulation. Presley Ruiz MD July 03, 2017 09:16
--- NOTE | 2017-07-03 10:18 | PD.CAR.PN ---
CVT Progress Note Subjective/Hospital Course: 71-year-old male. He presented to the emergency room with chest pain. Apparently came in last evening. The pain started about 7 p.m. as a sharp pain in his left chest, short of breath. He tried to use his nebulizer which did not seem to help. He felt a little bit lightheaded. The pain started to radiate down his left arm, lasted about for 30 minutes. He has had history of coronary artery disease and has prior stenting x 3. He is normally on Plavix, but says he has run out of it for the last few days. His last dose was on Saturday. Troponins in the ED are 0.07. The patient underwent cardiac catheterization by Dr. Huitron , which showed an EF of 40%, proximal LAD 60% in stenosis, mid distal LAD 60%, diagonal was small at 70%, the OM 90%, the RCA 70%. There was also a small OM2 which had a 95% lesion. We were consulted to evaluate for coronary artery bypass grafting. PAST MEDICAL HISTORY: Includes coronary artery disease with prior [place], paroxysmal atrial fibrillation, peripheral neuropathy, hyperlipidemia, hypertension, history of shingles involving the right arm in the past. Previous torn rotator cuff on the right. 07/03 painfree last pm carotid US stable lower ext vein mapping / poor targets lower legs FEV1 1.20 continue nebs / IS for surgery in am Objective: Vital Signs Date Time Temp Pulse Resp B/P (MAP) Pulse Ox O2 Delivery O2 Flow Rate FiO2 07/03/17 08:00 54 07/03/17 08:00 98.0 71 18 118/64 (82) 97 07/03/17 07:00 58 07/03/17 06:00 54 07/03/17 05:00 50 07/03/17 04:00 97.9 54 16 102/62 (75) 97 07/03/17 04:00 47 07/03/17 03:00 50 07/03/17 02:00 52 07/03/17 01:00 54 07/03/17 00:00 56 07/03/17 00:00 97.8 57 18 133/68 (89) 98 07/02/17 23:00 66 07/02/17 22:00 68 07/02/17 21:00 64 07/02/17 20:36 93 07/02/17 20:00 64 07/02/17 20:00 97.7 71 18 112/60 (77) 97 07/02/17 19:00 63 07/02/17 18:00 70 07/02/17 17:00 66 07/02/17 16:00 68 07/02/17 15:38 98.9 18 124/71 (88) 98 07/02/17 15:00 66 07/02/17 14:00 66 07/02/17 13:00 68 07/02/17 12:00 71 07/02/17 12:00 98.9 18 124/71 (88) 98 07/02/17 11:30 99 Room Air Labs: Laboratory Tests Test 07/03/17 05:00 07/03/17 08:45 White Blood Count 6.1 TH/MM3 (4.0-11.0) Red Blood Count 4.24 MIL/MM3 (4.50-5.90) Hemoglobin 12.9 GM/DL (13.0-17.0) Hematocrit 38.4 % (39.0-51.0) Mean Corpuscular Volume 90.6 FL (80.0-100.0) Mean Corpuscular Hemoglobin 30.4 PG (27.0-34.0) Mean Corpuscular Hemoglobin Concent 33.5 % (32.0-36.0) Red Cell Distribution Width 14.1 % (11.6-17.2) Platelet Count 184 TH/MM3 (150-450) Mean Platelet Volume 7.8 FL (7.0-11.0) Neutrophils (%) (Auto) 77.3 % (16.0-70.0) Lymphocytes (%) (Auto) 12.4 % (9.0-44.0) Monocytes (%) (Auto) 9.5 % (0.0-8.0) Eosinophils (%) (Auto) 0.5 % (0.0-4.0) Basophils (%) (Auto) 0.3 % (0.0-2.0) Neutrophils # (Auto) 4.7 TH/MM3 (1.8-7.7) Lymphocytes # (Auto) 0.8 TH/MM3 (1.0-4.8) Monocytes # (Auto) 0.6 TH/MM3 (0-0.9) Eosinophils # (Auto) 0.0 TH/MM3 (0-0.4) Basophils # (Auto) 0.0 TH/MM3 (0-0.2) CBC Comment DIFF FINAL Differential Comment Blood Urea Nitrogen 14 MG/DL (7-18) Creatinine 0.75 MG/DL (0.60-1.30) Random Glucose 105 MG/DL (74-106) Calcium Level 8.7 MG/DL (8.5-10.1) Sodium Level 140 MEQ/L (136-145) Potassium Level 4.2 MEQ/L (3.5-5.1) Chloride Level 102 MEQ/L (98-107) Carbon Dioxide Level 30.5 MEQ/L (21.0-32.0) Anion Gap 8 MEQ/L (5-15) Estimat Glomerular Filtration Rate 103 ML/MIN (>89) Result Diagram: 07/03/17 0500 07/03/17 0500 Telemetry: NSR (1) Coronary artery disease Plan: for surgery in am (2) COPD (chronic obstructive pulmonary disease) Plan: add scheduled nebs (3) Chest pain (4) Neuropathy Susan Guevara July 03, 2017 10:18
[2017-07-03] MEDS ORDERED: RESP: ALBUTEROL 2.5 MG/IPRATROPIUM 0.5 MG NEB (PRN) NEB (10:30)
--- NOTE | 2017-07-03 10:31 | RSPPFT ---
DATE OF PROCEDURE: 07/02/17 COMMENTS: Spirometry shows FVC of 2.3 predicted 4.8, FEV1 of 1.2 predicted 3.8, FEV1/FVC ratio 52% predicted 78%. IMPRESSION: On the basis of the above, patient has an obstructive lung defect but lung volumes would be necessary to rule out restrictive component if clinically indicated.
--- NOTE | 2017-07-03 11:02 | PD.CARD.PN ---
Subjective Subjective Remarks No angina Objective Medications Current Medications Medications (Trade) Dose Ordered Sig/Ismael Route Start Time Stop Time Status Last Admin ([place] 10-325 Mg) 1 tab Q6H PRN PO 07/01/17 10:00 07/03/17 06:38 (Tylenol) 500 mg Q6H PRN PO 07/01/17 10:00 (Deltasone) 20 mg DAILY PO 07/02/17 09:00 07/03/17 08:41 (Benadryl) 25 mg CHEMICAL COMPOUNDER PO 07/01/17 12:00 07/05/17 11:59 (Valium) 5 mg CHEMICAL COMPOUNDER PO 07/01/17 12:00 07/05/17 11:59 (Nitroglycerin 2% Oint) 0.5 inch Q6HR TOPICAL 07/01/17 18:00 07/03/17 06:00 (Cardizem) 30 mg Q6HR PO 07/01/17 18:00 07/03/17 01:32 (Aspirin Chew) 162 mg DAILY CHEW 07/01/17 12:15 07/03/17 08:41 (Lipitor) 10 mg DAILY PO 07/02/17 09:00 07/03/17 08:41 (NS Flush) 2 ml BID IV FLUSH 07/02/17 09:00 07/03/17 08:42 (NS Flush) 2 ml UNSCH PRN IV FLUSH 07/02/17 08:15 (Zofran Inj) 4 mg Q4H PRN IV PUSH 07/02/17 08:15 Vancomycin HCl 1000 mg/Sodium Chloride 1,000 ml @ 0 mls/hr CHEMICAL COMPOUNDER IRRIGATION 07/02/17 10:15 07/09/17 10:14 Vancomycin HCl 1250 mg/Sodium Chloride 262.5 ml @ 262.5 mls/ hr CHEMICAL COMPOUNDER IV 07/02/17 10:15 07/09/17 10:14 (Lopressor) 12.5 mg CHEMICAL COMPOUNDER PO 07/02/17 10:15 07/09/17 10:14 (Hibiclens 4% Top Soln) 1 applic CHEMICAL COMPOUNDER TOPICAL 07/02/17 10:15 07/09/17 10:14 Insulin Human Regular 100 units/ Sodium Chloride 100 ml @ 3 mls/hr TITRATE PRN IV 07/02/17 10:15 07/09/17 10:14 (D50w (Vial) Inj) 50 ml UNSCH PRN IV PUSH 07/02/17 10:15 (Pill Splitter) 1 ea UNSCH PRN OTHER 07/02/17 11:15 Papaverine HCl 60 mg/Nitroglycerin 100 mcg/Verapamil HCl 100 mg/Sodium Chloride 100 ml @ 0 mls/hr CHEMICAL COMPOUNDER IRRIGATION 07/02/17 11:30 07/09/17 10:14 (NS Flush) 2 ml UNSCH PRN IV FLUSH 07/02/17 17:30 (NS Flush) 2 ml BID IV FLUSH 07/02/17 21:00 07/03/17 01:33 (Narcan Inj) 0.4 mg UNSCH PRN IV PUSH 07/02/17 17:30 (Milk Of Magnesia Liq) 30 ml Q12H PRN PO 07/02/17 17:30 (Duoneb Neb) 1 ampule Q6HR WHILE AWAKE NEB NEB 07/03/17 14:00 (Duoneb Neb) 1 ampule Q2HR NEB PRN NEB 07/03/17 10:30 Vital Signs / I&O Vital Signs Date Time Temp Pulse Resp B/P (MAP) Pulse Ox O2 Delivery O2 Flow Rate FiO2 07/03/17 10:17 97 07/03/17 10:00 56 07/03/17 09:00 54 07/03/17 08:00 54 07/03/17 08:00 98.0 71 18 118/64 (82) 97 07/03/17 07:00 58 07/03/17 06:00 54 07/03/17 05:00 50 07/03/17 04:00 97.9 54 16 102/62 (75) 97 07/03/17 04:00 47 07/03/17 03:00 50 07/03/17 02:00 52 07/03/17 01:00 54 07/03/17 00:00 56 07/03/17 00:00 97.8 57 18 133/68 (89) 98 07/02/17 23:00 66 07/02/17 22:00 68 07/02/17 21:00 64 07/02/17 20:36 93 07/02/17 20:00 64 07/02/17 20:00 97.7 71 18 112/60 (77) 97 07/02/17 19:00 63 07/02/17 18:00 70 07/02/17 17:00 66 07/02/17 16:00 68 07/02/17 15:38 98.9 124/71 (88) 98 07/02/17 15:00 66 07/02/17 14:00 66 07/02/17 13:00 68 07/02/17 12:00 71 07/02/17 12:00 98.9 12471 (88) 98 07/02/17 11:30 99 Room Air I/O 07/02/17 07/02/17 07/02/17 07/03/17 07/03/17 07/03/17 07:00 15:00 23:00 07:00 15:00 23:00 Intake Total 2900 ml 480 ml Output Total 300 ml 425 ml Balance 2600 ml 55 ml Intake Oral 700 ml 480 ml IV Total 2200 ml Output Urine Total 300 ml 425 ml # Bowel Movements 0 0 Physical Exam Alert Chest clear CV S1S2 RRR No edeam Tele NSR Laboratory Laboratory Tests Test 07/02/17 13:09 07/03/17 05:00 07/03/17 08:45 White Blood Count 6.5 TH/MM3 6.1 TH/MM3 Red Blood Count 4.30 MIL/MM3 4.24 MIL/MM3 Hemoglobin 13.0 GM/DL 12.9 GM/DL Hematocrit 39.2 % 38.4 % Mean Corpuscular Volume 91.1 FL 90.6 FL Mean Corpuscular Hemoglobin 30.2 PG 30.4 PG Mean Corpuscular Hemoglobin Concent 33.2 % 33.5 % Red Cell Distribution Width 14.3 % 14.1 % Platelet Count 180 TH/MM3 184 TH/MM3 Mean Platelet Volume 7.8 FL 7.8 FL Neutrophils (%) (Auto) 73.5 % 77.3 % Lymphocytes (%) (Auto) 14.4 % 12.4 % Monocytes (%) (Auto) 10.1 % 9.5 % Eosinophils (%) (Auto) 1.4 % 0.5 % Basophils (%) (Auto) 0.6 % 0.3 % Neutrophils # (Auto) 4.8 TH/MM3 4.7 TH/MM3 Lymphocytes # (Auto) 0.9 TH/MM3 0.8 TH/MM3 Monocytes # (Auto) 0.7 TH/MM3 0.6 TH/MM3 Eosinophils # (Auto) 0.1 TH/MM3 0.0 TH/MM3 Basophils # (Auto) 0.0 TH/MM3 0.0 TH/MM3 CBC Comment DIFF FINAL DIFF FINAL Differential Comment Blood Urea Nitrogen 14 MG/DL Creatinine 0.75 MG/DL Random Glucose 105 MG/DL Calcium Level 8.7 MG/DL Sodium Level 140 MEQ/L Potassium Level 4.2 MEQ/L Chloride Level 102 MEQ/L Carbon Dioxide Level 30.5 MEQ/L Anion Gap 8 MEQ/L Estimat Glomerular Filtration Rate 103 ML/MIN Imaging Last 48 hours Impressions Lower Extremity Ultrasound 07/02/17 Signed Impressions: Service Date/Time: Sunday, July 02, 2017 14:07 - CONCLUSION: 1. Lower extremity venous mapping, as above. Merrill Oliva MD Lower Extremity Ultrasound 07/02/17 Signed Impressions: Service Date/Time: Sunday, July 02, 2017 13:58 - CONCLUSION: 1. No sonographic evidence for lower extremity DVT. Merrill Oliva MD Carotid Artery Ultrasound 07/02/17 Signed Impressions: Service Date/Time: Sunday, July 02, 2017 13:55 - CONCLUSION: 1. Mild bilateral carotid plaque with resultant mild, less than 50%%, stenosis bilaterally. 2. Antegrade vertebral artery flow bilaterally. Merrill Oliva MD Assessment and Plan Problem List: (1) Coronary artery disease ICD Codes: I25.10 - Atherosclerotic heart disease of [place] coronary artery without angina pectoris (2) COPD (chronic obstructive pulmonary disease) ICD Codes: J44.9 - Chronic obstructive pulmonary disease, unspecified (3) Chest pain ICD Codes: R07.9 - Chest pain, unspecified Status: Acute (4) Neuropathy ICD Codes: G62.9 - Polyneuropathy, unspecified Status: Acute Assessment and Plan For CABG tomorrow Wallace Huitron MD July 03, 2017 11:01
[2017-07-03 16:56] LABS: HEMOGLOBIN A1C 5.7 % (4.3-6.0)
--- NOTE | 2017-07-03 20:06 | ECHRPT ---
Indication: CONCLUSIONS Normal left ventricular size. Wall thickness is normal. The left ventricular systolic function is mildly reduced with an estimated ejection fraction of 45%. Mitral annular calcification is present. Aortic valve sclerosis is present. Mild aortic valve regurgitation. BP: / HR: Rhythm: MEASUREMENTS (Male / Female) Normal Values Technical Quality: 2D ECHO LV Diastolic Diameter PLAX 4.8 cm 4.2 - 5.9 / 3.9 - 5.3 cm LV Systolic Diameter PLAX 4.0 cm IVS Diastolic Thickness 0.9 cm 0.6 - 1.0 / 0.6 - 0.9 cm LVPW Diastolic Thickness 0.6 cm 0.6 - 1.0 / 0.6 - 0.9 cm LV Relative Wall Thickness 0.3 RV Internal Dim ED PLAX 2.2 cm M-MODE Aortic Root Diameter MM 3.0 cm AV Cusp Separation MM 1.9 cm DOPPLER Mitral E Point Velocity 57.3 cm/s Mitral A Point Velocity 74.0 cm/s Mitral E to A Ratio 0.8 TR Peak Velocity 242.0 cm/s TR Peak Gradient 23.4 mmHg FINDINGS LEFT VENTRICLE Normal left ventricular size. Wall thickness is normal. The left ventricular systolic function is mildly reduced with an estimated ejection fraction of 45%. RIGHT VENTRICLE Normal right ventricular size and systolic function. LEFT ATRIUM The left atrial size is normal. RIGHT ATRIUM The right atrial size is normal. ATRIAL SEPTUM Normal atrial septal thickness without atrial level shunting by limited color doppler interrogation. AORTA The aortic root and proximal ascending aorta are normal in size on limited imaging. MITRAL VALVE Mitral annular calcification is present. AORTIC VALVE Aortic valve sclerosis is present. Mild aortic valve regurgitation. TRICUSPID VALVE Structurally normal tricuspid valve. No tricuspid valve stenosis or regurgitation. PULMONARY VALVE The pulmonary valve is not well visualized. VESSELS The inferior vena cava is normal in size. PERICARDIUM No pericardial effusion. Sean Brumfield MD, FACC (Electronically Signed) Final Date:03 Jul 2017 20:06
[2017-07-03] MEDS: RESP: ALBUTEROL 2.5 MG/IPRATROPIUM 0.5 MG NEB (SCH) NEB (21:18)
[2017-07-04] VITALS (13 sets, daily range): BP systolic 106–132; BP diastolic 50–82; PULSE 57–72; RESP 10–20; TEMP 97.2–98.6; O2SAT 97–99
[2017-07-04] MEDS: ACETAMINOPHEN/HYDROcodone 325 MG/10 MG TAB PO PRN ×3 (04:34→20:51)
[2017-07-04] MEDS: NITROGLYCERIN 2% OINT 1 GM PACKET TOPICAL SCH ×2 (06:00)
[2017-07-04] MEDS: DILTIAZEM HCL 30 MG TAB PO SCH ×3 (06:00→12:00)
[2017-07-04] MEDS ORDERED: methylPREDNISolone SOD SUCC 125 MG/2 ML VIAL ONE (06:27)
[2017-07-04] MEDS ORDERED: HEPARIN SODIUM - SQ 10,000 UNITS/ML VIAL ONE (06:27)
[2017-07-04] MEDS ORDERED: VANCOMYCIN HCL 1000 MG VIAL ONE (06:28)
[2017-07-04] MEDS ORDERED: ACETAMINOPHEN 1000 MG/100 ML 100 ML IV ONE (07:39)
[2017-07-04] MEDS ORDERED: SUGAMMADEX SODIUM 200 MG/2 ML VIAL IV PUSH ONE (07:39)
[2017-07-04] MEDS ORDERED: MIDAZOLAM HCL 5 MG/5 ML VIAL ONE (07:39)
[2017-07-04] MEDS ORDERED: fentaNYL CITRATE 250 MCG/5 ML AMP ONE ×2 (07:39)
[2017-07-04] MEDS: RESP: ALBUTEROL 2.5 MG/IPRATROPIUM 0.5 MG NEB (SCH) NEB ×3 (07:43→21:31)
[2017-07-04] MEDS ORDERED: POTASSIUM CHLOR 40 MEQ PREMIX 200 ML ONE (08:11)
[2017-07-04] MEDS ORDERED: CARDIOPLEGIC IRR 2,000 ML ONE (08:11)
[2017-07-04] MEDS ORDERED: ALBUMIN 25% INJ 50 ML IV ONE (08:14)
[2017-07-04] MEDS ORDERED: MANNITOL INJ 100 ML ONE (08:14)
[2017-07-04] MEDS ORDERED: HEPARIN SODIUM - IV 10,000 UNITS/10 ML VIAL ONE (08:15)
[2017-07-04] MEDS: SODIUM CHLORIDE 0.9% FLUSH 10 ML FLUSH IV FLUSH SCH ×5 (09:00→20:53)
[2017-07-04] MEDS: predniSONE 20 MG TAB PO SCH (09:00)
[2017-07-04] MEDS: ASPIRIN 81 MG CHEW TAB CHEW SCH (09:00)
[2017-07-04] MEDS: ATORVASTATIN 10 MG TAB PO SCH (09:00)
[2017-07-04] MEDS ORDERED: SUFentanil INJ 250 MCG/5 ML AMP ONE (09:28)
--- NOTE | 2017-07-04 09:35 | PD.CAR.PN ---
CVT Progress Note Subjective/Hospital Course: 71-year-old male. He presented to the emergency room with chest pain. Apparently came in last evening. The pain started about 7 p.m. as a sharp pain in his left chest, short of breath. He tried to use his nebulizer which did not seem to help. He felt a little bit lightheaded. The pain started to radiate down his left arm, lasted about for 30 minutes. He has had history of coronary artery disease and has prior stenting x 3. He is normally on Plavix, but says he has run out of it for the last few days. His last dose was on Saturday. Troponins in the ED are 0.07. The patient underwent cardiac catheterization by Dr. Huitron , which showed an EF of 40%, proximal LAD 60% in stenosis, mid distal LAD 60%, diagonal was small at 70%, the OM 90%, the RCA 70%. There was also a small OM2 which had a 95% lesion. We were consulted to evaluate for coronary artery bypass grafting. PAST MEDICAL HISTORY: Includes coronary artery disease with prior [place], paroxysmal atrial fibrillation, peripheral neuropathy, hyperlipidemia, hypertension, history of shingles involving the right arm in the past. Previous torn rotator cuff on the right. 07/03 painfree last pm carotid US stable lower ext vein mapping / poor targets lower legs FEV1 1.20 continue nebs / IS for surgery in am Objective: Vital Signs Date Time Temp Pulse Resp B/P (MAP) Pulse Ox O2 Delivery O2 Flow Rate FiO2 07/04/17 07:43 97 21 07/04/17 07:00 97.4 62 16 106/59 (75) 99 07/04/17 07:00 62 07/04/17 06:00 62 07/04/17 05:00 59 07/04/17 03:00 57 07/04/17 03:00 98.5 63 18 114/66 (82) 99 07/04/17 01:00 58 07/03/17 23:00 65 07/03/17 23:00 98.5 63 18 114/66 (82) 99 07/03/17 21:20 97 21 07/03/17 21:00 57 07/03/17 20:50 20 07/03/17 19:00 63 07/03/17 19:00 97.9 63 20 115/76 (89) 99 07/03/17 18:00 63 07/03/17 17:00 56 07/03/17 16:00 58 07/03/17 15:23 98.2 66 18 140/69 (92) 97 07/03/17 15:00 56 07/03/17 14:00 70 07/03/17 13:00 64 07/03/17 12:00 72 07/03/17 11:38 98.1 66 18 119/59 (79) 97 07/03/17 11:00 66 07/03/17 10:17 97 07/03/17 10:00 56 Result Diagram: 07/03/17 0500 07/03/17 0500 (1) Coronary artery disease Plan: for surgery in am (2) COPD (chronic obstructive pulmonary disease) Plan: add scheduled nebs (3) Chest pain (4) Neuropathy (5) S/P CABG (coronary artery bypass graft) Susan Guevara July 04, 2017 09:35
[2017-07-04] MEDS ORDERED: LACTATED RINGER'S 1000 ML INJ 500 ML IV PRN (11:54)
[2017-07-04] MEDS ORDERED: SODIUM BICARBONATE 8.4% SOLN 50 MEQ/50 ML VIAL IV PUSH PRN ×2 (12:00)
[2017-07-04] MEDS ORDERED: Post-op Orders (for Pharmacy) OTHER ONE (12:00)
[2017-07-04] MEDS ORDERED: METOPROLOL TARTRATE 5 MG/5 ML VIAL IV PUSH PRN (12:00)
[2017-07-04] MEDS ORDERED: AMINOCAPROIC ACID INJ 250 MG/ML 20 ML VIAL IV ONE (12:00)
[2017-07-04] MEDS ORDERED: RESP: ALBUTEROL 2.5 MG/IPRATROPIUM 0.5 MG NEB (PRN) NEB (12:00)
[2017-07-04] MEDS ORDERED: NORMOSOL R INJ 1,000 ML IV ONE (12:00)
[2017-07-04] MEDS ORDERED: SODIUM CHLORID 0.9% 500 ML INJ 500 ML IV ONE (12:00)
[2017-07-04] MEDS ORDERED: SODIUM CHLORIDE 0.9% FLUSH 10 ML FLUSH IV FLUSH PRN (12:00)
[2017-07-04] MEDS ORDERED: CLEVIDIPINE INJ 50 ML IV PRN (12:00)
[2017-07-04] MEDS ORDERED: ACETAMINOPHEN 650 MG SUPP RECTAL PRN (12:00)
[2017-07-04] MEDS ORDERED: PROTAMINE SULFATE 250 MG/25 ML VIAL IV ONE (12:00)
[2017-07-04] MEDS ORDERED: PHENYLEPH/NS 1000 MCG/10 ML SYR IV ONE (12:00)
[2017-07-04] MEDS ORDERED: VECURONIUM BROMIDE 10 MG VIAL IV ONE (12:00)
[2017-07-04] MEDS ORDERED: NITROGLYCERIN 50 MG/DEXTROSE 5% SOLN 250 ML BTL IV ONE (12:00)
[2017-07-04] MEDS ORDERED: DEXTROSE 50% IN WATER 50 ML VIAL(D50) IV PUSH PRN (12:00)
[2017-07-04] MEDS ORDERED: DEXMEDETOMIDINE INJ 200 MCG in SODIUM CHLORIDE 0.9% INJ 50 ML IV PRN (12:00)
[2017-07-04] MEDS ORDERED: SODIUM CHLOR 0.9% 250 ML INJ 250 ML IV ONE (12:00)
[2017-07-04] MEDS ORDERED: POTASSIUM CHLORIDE 20 MEQ CONTROLLED RELEASE TAB PO PRN ×2 (12:00)
[2017-07-04] MEDS ORDERED: MAGNESIUM SULFATE 1 GM/2 ML VIAL IV ONE (12:00)
[2017-07-04] MEDS ORDERED: PHENYLEPHRINE HCL 10 MG/ML VIAL IV ONE (12:00)
[2017-07-04] MEDS ORDERED: MAGNESIUM SULFATE INJ 2 GM in SODIUM CHLORIDE 0.9% INJ 100 ML IV PRN ×4 (12:00)
[2017-07-04] MEDS ORDERED: CALCIUM CHLORIDE INJ 1 GM in SODIUM CHLORIDE 0.9% INJ 100 ML IV PRN (12:00)
[2017-07-04] MEDS ORDERED: CALCIUM CHLORIDE 10% 1 GRAM/10 ML VIAL IV PUSH PRN (12:00)
[2017-07-04] MEDS ORDERED: RESP: RACEPINEPHRINE 2.25% 0.5 ML NEB NEB PRN (12:00)
[2017-07-04] MEDS ORDERED: SODIUM BICARBONATE 8.4% INJ 50 MEQ/50 ML SYR IV ONE (12:00)
[2017-07-04] MEDS ORDERED: CALCIUM CHLORIDE 10% SOLN 1 GRAM/10 ML SYR IV ONE (12:00)
[2017-07-04] MEDS ORDERED: DEXMEDETOMIDINE HCL 200 MCG/2 ML VIAL IV ONE (12:00)
[2017-07-04] MEDS ORDERED: ACETAMINOPHEN 325 MG TAB PO PRN (12:00)
[2017-07-04] MEDS ORDERED: hydrALAZINE HCL 20 MG/ML VIAL IV PUSH PRN (12:00)
[2017-07-04] MEDS ORDERED: ePHEDrine/NS 25 MG/5 ML SYRINGE IV ONE (12:00)
[2017-07-04] MEDS ORDERED: NS 100 ML (PAB BAG) 200 ML IV ONE (12:00)
[2017-07-04] MEDS ORDERED: oxyCODONE/ACETAMINOPHEN 5 MG/325 MG TAB PO PRN (12:00)
[2017-07-04] MEDS ORDERED: POTASSIUM CHLOR 20 MEQ PREMIX 100 ML IV PRN ×3 (12:00)
[2017-07-04] MEDS ORDERED: HEPARIN SODIUM - SQ 10,000 UNITS/ML VIAL OTHER ONE (12:00)
[2017-07-04] MEDS ORDERED: LACTATED RINGER'S 1000 ML INJ 2,000 ML IV ONE (12:00)
--- NOTE | 2017-07-04 12:14 | PD.OP ---
cc: Temi Shaw MD; Wallace Huitron MD Operative Report Date of Surgery: July 04, 2017 Preoperative Diagnosis: (1) NSTEMI (non-ST elevated myocardial infarction) (2) Multi-vessel coronary artery stenosis Postoperative Diagnosis: same Procedure: CABG x 3 WILLETT to LAD SVG to OM1 SVG to PDA EVH Anesthesia: Dr. Mckeon Surgeon: Temi Shaw Store Clerk(s): Marcy Kingsley, ENDER Operation and Findings: The risks, benefits, complications, treatment options, and expected outcomes were discussed with the patient. The possibilities of reaction to medication, pulmonary aspiration, perforation of viscus, bleeding, recurrent infection, the need for additional procedures, failure to diagnose a condition, and creating a complication requiring transfusion or operation were discussed with the patient. The patient concurred with the proposed plan, giving informed consent. The site of surgery properly noted/marked. The patient was taken to Operating Room, identified as Gui Dove and the procedure verified as CABG, EVH. A Time Out was held and the above information confirmed. Standard monitoring lines and Gunderson catheter were placed. General anesthesia was induced. The patient was prepped and draped in a sterile fashion. A median sternotomy was performed and electrocautery was used to obtain hemostasis. The left internal mammary artery was procured as a pedicle from the 7th rib to the 1st rib in the usual manner. Simultaneously left greater saphenous vein was procured from the left leg using a minimally invasive endoscopic technique. The vein was prepared for anastomosis and the leg wound was irrigated and closed in 2 layers. The pericardium was opened and a pericardial sling was created using interrupted 0 silk sutures. The patient was heparinized for cardiopulmonary bypass and the distal mammary pedicle was instrumented for anastomosis. The heart was instrumented for cardiopulmonary bypass in the usual manner. Antegrade blood cardioplegia was employed. The patient was placed on cardiopulmonary bypass. An aortic cross-clamp was applied and the heart was arrested using cold blood cardioplegia. Antegrade cardioplegia was administered after he each anastomosis. After adequate arrest, the distal right coronary circulation was investigated and the PDA was opened with a [place] blade and found to be a 1.5 millimeter good target. Saphenous vein was approximated to the PDA using a running 7 0 Prolene suture. The graft was measured for length and orientation and the proximal anastomosis was constructed to the ascending aorta using a running 5 0 Prolene suture after creating an aortotomy with a 5 millimeter punch. The 1st circumflex marginal artery was then opened with a [place] blade and found to be a 1.5 millimeter good target. Saphenous vein was approximated to the OM1 artery using a running 7 0 Prolene suture. The graft was measured for length and orientation and was suspended from the pericardium. The distal LAD was opened with a [place] blade and found to be a 1.5 millimeter good target. The left internal mammary artery was approximated to the LAD using a running 7 0 Prolene suture. The pedicle was attached to the epicardium using interrupted 5 0 silk suture. The patient was systemically rewarmed and received a hotshot dose of warm blood cardioplegia. The aorta was vented and the proximal anastomosis to the OM1 graft was accomplished using a running 5 0 Prolene suture after creating an aortotomy was a 5 millimeter punch. The cross-clamp was removed and all proximal and distal anastomoses were examined for hemostasis. The patient was weaned from cardiopulmonary bypass. Protamine was given. There was no adverse reaction. Decannulation was carried out without incident. Wound was checked for hemostasis which was obtained using electrocautery. A 36 Chinese mediastinal and 32 Chinese left pleural chest was were placed and secured to the skin with 0 silk suture. The sternum was closed with stainless steel wire. The fascia was closed with 1. PDS. The subcutaneous tissue was closed using a running 2-0 Vicryl suture. The skin was closed with 4- 0 Monocryl. Sterile dressings were placed. At the end of the operation, all sponge, instruments, and needle counts were correct. The patient was transferred to the CVICU in stable condition. Findings: good distal targets XC: 50 min CPB: 58 min Drains: mediastinal x 1 pleural x 1 Complications: none Disposition: to CVICU in stable condition Tmei Shaw MD July 04, 2017 12:14
[2017-07-04] MEDS: ACETAMINOPHEN 1000 MG/100 ML 100 ML IV SCH ×2 (12:50→17:29)
[2017-07-04] MEDS ORDERED: INSULIN REGULAR (IV INFUSION) 100 UNITS in SODIUM CHLORIDE 0.9% INJ 99 ML IV PRN (13:00)
[2017-07-04] MEDS ORDERED: ONDANSETRON ODT 4 MG TAB PO PRN (13:00)
--- NOTE | 2017-07-04 13:15 | RADRPT ---
EXAM DATE/TIME: 07/04/2017 12:45 [facility] COMPARISON: CHEST SINGLE AP, June 30, 2017, 21:35. INDICATIONS : Post-op coronary artery bypass graft surgery. MEDICAL HISTORY : None. SURGICAL HISTORY : None. ENCOUNTER: Initial ACUITY: 4 - 6 days PAIN SCORE: Non-responsive. LOCATION: chest FINDINGS: Interval postsurgical features of cardiac surgery with median sternotomy wires in place. ETT at the l evel of the clavicles. Left IJ introducer with tip in the very proximal SVC. Mediastinal drains and l eft-sided chest tube in place. No significant pneumothorax. Minimal linear parenchymal opacity in the left lung base. Cardiomediastinal contours are stable. Remainder of the exam is unchanged. CONCLUSION: 1. Expected postoperative features of CABG with tubes and lines, as above. 2. No significant pneumothorax. 3. Minimal left lung base atelectasis. Merrill Oliva MD on July 04, 2017 at 13:11 Board Certified Radiologist. This report was verified electronically.
[2017-07-04] MEDS: KETOROLAC TROMETHAMINE 30 MG/ML (IVP) VIAL IV PUSH PRN (13:35)
[2017-07-04] MEDS: ALBUMIN 5% INJ 250 ML IV PRN ×2 (14:08→17:29)
[2017-07-04] MEDS: AMIODARONE 200 MG TAB PO SCH (20:51)
[2017-07-04] MEDS: VANCOMYCIN INJ 1,000 MG in SODIUM CHLOR 0.9% 250 ML INJ 250 ML IV SCH (20:52)
[2017-07-05] VITALS (13 sets, daily range): BP systolic 102–148; BP diastolic 54–79; PULSE 54–93; RESP 16–20; TEMP 97.9–98.2; O2SAT 94–99
[2017-07-05] MEDS: ACETAMINOPHEN 1000 MG/100 ML 100 ML IV SCH ×2 (00:30→06:01)
[2017-07-05] MEDS: ACETAMINOPHEN/HYDROcodone 325 MG/10 MG TAB PO PRN ×2 (03:24→08:33)
[2017-07-05 04:37] LABS: HEMATOCRIT 30.5 % (39.0-51.0); HEMOGLOBIN 10.4 GM/DL (13.0-17.0); MEAN CELL VOLUME 90.9 FL (80.0-100.0); MEAN CORPUSCULAR HEMOGLOBIN 30.8 PG (27.0-34.0); MEAN CORPUSCULAR HGB CONC 33.9 % (32.0-36.0); MEAN PLATELET VOLUME 8.1 FL (7.0-11.0); PLATELET COUNT 147 TH/MM3 (150-450); RED BLOOD COUNT 3.36 MIL/MM3 (4.50-5.90); WHITE BLOOD COUNT 11.7 TH/MM3 (4.0-11.0)
[2017-07-05] MEDS: RESP: ALBUTEROL 2.5 MG/IPRATROPIUM 0.5 MG NEB (SCH) NEB ×6 (04:50→22:00)
[2017-07-05 05:03] LABS: BICARBONATE 27.3 MEQ/L (21.0-32.0); CALCIUM 7.6 MG/DL (8.5-10.1); CREATININE 0.67 MG/DL (0.60-1.30); MAGNESIUM 2.5 MG/DL (1.5-2.5)
--- NOTE | 2017-07-05 05:21 | RADRPT ---
EXAM DATE/TIME: 07/05/2017 04:24 [facility] COMPARISON: CHEST SINGLE AP, July 04, 2017, 12:45. INDICATIONS : Status post CABG. MEDICAL HISTORY : [place]. CAD. COPD. Torn rotator cuff. RA. SURGICAL HISTORY : Coronary stent. Herniorrhaphy. Cardiac catheterization. ENCOUNTER: Subsequent ACUITY: 1 day PAIN SCORE: Non-responsive. LOCATION: Bilateral chest FINDINGS: A single view of the chest demonstrates a minimal bibasilar atelectasis. Mediastinal and left-sided c hest tubes are seen. No definite pneumothorax. Patient is status post CABG. Heart normal in size. Os seous structures are intact. CONCLUSION: Minimal bibasilar atelectasis. Mike Boswell MD on July 05, 2017 at 5:18 Board Certified Radiologist. This report was verified electronically.
[2017-07-05] MEDS: DILTIAZEM HCL 30 MG TAB PO SCH ×2 (06:00)
[2017-07-05] MEDS: PANTOPRAZOLE SOD 40 MG DELAYED RELEASE TAB PO SCH (06:01)
[2017-07-05] MEDS: AMIODARONE 200 MG TAB PO SCH ×3 (06:02→21:44)
[2017-07-05] MEDS: SODIUM CHLORIDE 0.9% FLUSH 10 ML FLUSH IV FLUSH SCH ×4 (08:32→21:44)
[2017-07-05] MEDS ORDERED: POTASSIUM CHLORIDE 10 MEQ CONTROLLED RELEASE TAB PO ONE (08:45)
[2017-07-05] MEDS ORDERED: BISACODYL 10 MG SUPP RECTAL PRN (08:45)
[2017-07-05] MEDS ORDERED: oxyCODONE/ACETAMINOPHEN 5 MG/325 MG TAB PO PRN (08:45)
[2017-07-05] MEDS ORDERED: SOD PHOSPHATE/SOD BIPHOSPHATE (ADULT) ENEMA 133ML RECTAL PRN (08:45)
[2017-07-05] MEDS ORDERED: FUROSEMIDE 20 MG/2 ML VIAL IV PUSH ONE (08:45)
[2017-07-05] MEDS ORDERED: GLUCAGON 1 MG/ML VIAL OTHER PRN (08:45)
[2017-07-05] MEDS ORDERED: DEXTROSE 50% IN WATER 50 ML VIAL(D50) IV PUSH PRN (08:45)
[2017-07-05] MEDS: KETOROLAC TROMETHAMINE 30 MG/ML (IVP) VIAL IV PUSH PRN ×2 (08:57→16:38)
[2017-07-05] MEDS: ASPIRIN 81 MG CHEW TAB PO SCH (08:58)
[2017-07-05] MEDS: ATORVASTATIN 10 MG TAB PO SCH (08:58)
[2017-07-05] MEDS: predniSONE 20 MG TAB PO SCH (08:58)
[2017-07-05] MEDS: VANCOMYCIN INJ 1,000 MG in SODIUM CHLOR 0.9% 250 ML INJ 250 ML IV SCH ×2 (08:59→21:43)
[2017-07-05] MEDS: DOCUSATE SODIUM 100 MG CAP PO SCH ×3 (09:00→21:43)
[2017-07-05] MEDS: MAGNESIUM HYDROXIDE SUSP 30 ML CUP PO SCH (09:01)
[2017-07-05] MEDS: MULTIVITAMINS/MINERALS THERAPEUTIC TAB PO SCH (09:02)
[2017-07-05] MEDS: METOPROLOL TARTRATE 25 MG TAB PO SCH ×2 (09:02→21:44)
--- NOTE | 2017-07-05 09:26 | PD.CAR.PN ---
CVT Progress Note Subjective/Hospital Course: 71-year-old male. He presented to the emergency room with chest pain. Apparently came in last evening. The pain started about 7 p.m. as a sharp pain in his left chest, short of breath. He tried to use his nebulizer which did not seem to help. He felt a little bit lightheaded. The pain started to radiate down his left arm, lasted about for 30 minutes. He has had history of coronary artery disease and has prior stenting x 3. He is normally on Plavix, but says he has run out of it for the last few days. His last dose was on Saturday. Troponins in the ED are 0.07. The patient underwent cardiac catheterization by Dr. Huitron , which showed an EF of 40%, proximal LAD 60% in stenosis, mid distal LAD 60%, diagonal was small at 70%, the OM 90%, the RCA 70%. There was also a small OM2 which had a 95% lesion. We were consulted to evaluate for coronary artery bypass grafting. PAST MEDICAL HISTORY: Includes coronary artery disease with prior [place], paroxysmal atrial fibrillation, peripheral neuropathy, hyperlipidemia, hypertension, history of shingles involving the right arm in the past. Previous torn rotator cuff on the right. 07/03 painfree last pm carotid US stable lower ext vein mapping / poor targets lower legs FEV1 1.20 continue nebs / IS for surgery in am 07/04 surgery: CABG x 3, WILLETT to LAD, SVG to OM1, SVG to PDA, EVH 2500cc crystalloid , 750cc cell saver, 1500cc EBL extubated after surgery / + solumedrol 07/05 very painful this am pain meds adjusted, started on BB , low dose diuretic IN NSR , ECG no acute changes stable to transfer to stepdown Objective: GENERAL: A&O x 3 SKIN: Warm and dry. prevena dressing to chest , Noam wrap to left and right leg HEAD: Normocephalic. EYES: No scleral icterus. No injection or drainage. NECK: Supple, trachea midline. No JVD or lymphadenopathy. CARDIOVASCULAR: Regular rate and rhythm without murmurs, gallops, or rubs. RESPIRATORY: Breath sounds equal bilaterally. No accessory muscle use. chest tube to wall suction , no air leak , drained 140cc/ 12hrs GASTROINTESTINAL: Abdomen soft, non-tender, nondistended. MUSCULOSKELETAL: No cyanosis, or edema. BACK: Nontender without obvious deformity. No CVA tenderness. Vital Signs Date Time Temp Pulse Resp B/P (MAP) Pulse Ox O2 Delivery O2 Flow Rate FiO2 07/05/17 09:03 94 21 07/05/17 08:00 88 07/05/17 08:00 95 Room Air 07/05/17 08:00 98.1 82 16 129/79 (96) 95 148/66 (93) 07/05/17 04:50 97 Nasal Cannula 2.00 07/05/17 04:40 18 07/05/17 04:30 74 07/05/17 04:00 98.1 72 20 115/70 (85) 99 143/72 (95) 07/05/17 03:28 99 Nasal Cannula 2.00 07/05/17 00:15 79 07/05/17 00:00 99 Nasal Cannula 2.00 07/05/17 00:00 98.0 77 20 107/62 (77) 99 124/54 (77) 07/04/17 23:00 99 Nasal Cannula 2.00 07/04/17 22:09 97 Nasal Cannula 4.00 07/04/17 20:00 97.7 71 20 115/82 (93) 99 132/58 (82) 07/04/17 19:45 99 Nasal Cannula 4.00 07/04/17 19:45 20 07/04/17 19:15 71 07/04/17 15:15 99 Nasal Cannula 4.00 07/04/17 15:00 97.7 71 14 109/68 (82) 99 108/50 (69) 07/04/17 15:00 70 07/04/17 14:27 99 Mechanical Ventilator 5.00 Nasal Cannula 07/04/17 14:27 40 07/04/17 14:27 99 Nasal Cannula 5.00 07/04/17 14:00 40 07/04/17 13:30 40 07/04/17 12:51 142/67 07/04/17 12:35 98 40 07/04/17 12:31 72 07/04/17 12:31 97.2 72 10 126/72 (90) 99 126/55 (78) 07/04/17 12:31 98.6 07/04/17 12:30 50 Labs: Laboratory Tests Test 07/05/17 04:20 White Blood Count 11.7 TH/MM3 (4.0-11.0) Red Blood Count 3.36 MIL/MM3 (4.50-5.90) Hemoglobin 10.4 GM/DL (13.0-17.0) Hematocrit 30.5 % (39.0-51.0) Mean Corpuscular Volume 90.9 FL (80.0-100.0) Mean Corpuscular Hemoglobin 30.8 PG (27.0-34.0) Mean Corpuscular Hemoglobin Concent 33.9 % (32.0-36.0) Red Cell Distribution Width 14.0 % (11.6-17.2) Platelet Count 147 TH/MM3 (150-450) Mean Platelet Volume 8.1 FL (7.0-11.0) Blood Urea Nitrogen 12 MG/DL (7-18) Creatinine 0.67 MG/DL (0.60-1.30) Random Glucose 93 MG/DL (74-106) Calcium Level 7.6 MG/DL (8.5-10.1) Magnesium Level 2.5 MG/DL (1.5-2.5) Sodium Level 141 MEQ/L (136-145) Potassium Level 4.4 MEQ/L (3.5-5.1) Chloride Level 107 MEQ/L (98-107) Carbon Dioxide Level 27.3 MEQ/L (21.0-32.0) Anion Gap 7 MEQ/L (5-15) Estimat Glomerular Filtration Rate 118 ML/MIN (>89) Result Diagram: 07/05/170 07/05/17 0420 Telemetry: NSR (1) S/P CABG (coronary artery bypass graft) Plan: ASA, statin, BB , amiodarone gentle diuresis OOB/ ambulate pain meds adjusted eval for SNF placement (2) Coronary artery disease (3) COPD (chronic obstructive pulmonary disease) Plan: scheduled nebs (4) Chest pain (5) Neuropathy Susan Guevara July 05, 2017 09:26
[2017-07-05] MEDS: INSULIN ASPART SUPPLEMENTAL SCALE SQ SCH ×4 (10:00→21:58)
[2017-07-05] MEDS ORDERED: ACETAMINOPHEN/HYDROcodone 325 MG/5 MG TAB PO PRN (13:00)
[2017-07-05] MEDS: ACETAMINOPHEN/HYDROcodone 325 MG/5 MG TAB PO PRN ×3 (13:42→23:47)
[2017-07-05] MEDS: SENNOSIDES 8.6 MG TAB PO SCH (21:44)
[2017-07-06] VITALS (22 sets, daily range): BP systolic 99–139; BP diastolic 55–73; PULSE 54–90; RESP 16–18; TEMP 97.7–98.7; O2SAT 95–100
[2017-07-06] MEDS: INSULIN ASPART SUPPLEMENTAL SCALE SQ SCH ×6 (02:00→20:39)
[2017-07-06] MEDS: KETOROLAC TROMETHAMINE 30 MG/ML (IVP) VIAL IV PUSH PRN ×2 (02:57→11:36)
[2017-07-06] MEDS: RESP: ALBUTEROL 2.5 MG/IPRATROPIUM 0.5 MG NEB (SCH) NEB ×7 (04:00→21:06)
[2017-07-06] MEDS: ACETAMINOPHEN/HYDROcodone 325 MG/5 MG TAB PO PRN ×4 (04:46→16:32)
[2017-07-06 05:24] LABS: AUTOMATED NEUTROPHIL # 7.9 TH/MM3 (1.8-7.7); BASOPHIL % 0.1 % (0.0-2.0); EOSINOPHIL % 0.1 % (0.0-4.0); HEMATOCRIT 27.5 % (39.0-51.0); HEMOGLOBIN 9.3 GM/DL (13.0-17.0); LYMPH % 12.4 % (9.0-44.0); LYMPHOCYTE # 1.2 TH/MM3 (1.0-4.8); MEAN CELL VOLUME 91.3 FL (80.0-100.0); MEAN CORPUSCULAR HEMOGLOBIN 30.9 PG (27.0-34.0); MEAN CORPUSCULAR HGB CONC 33.8 % (32.0-36.0); MEAN PLATELET VOLUME 8.5 FL (7.0-11.0); MONO % 7.9 % (0.0-8.0); MONOCYTE # 0.8 TH/MM3 (0-0.9); NEUT % 79.5 % (16.0-70.0); PLATELET COUNT 133 TH/MM3 (150-450); RED BLOOD COUNT 3.01 MIL/MM3 (4.50-5.90); RED CELL DISTRIBUTION WIDTH 14.2 % (11.6-17.2); WHITE BLOOD COUNT 9.9 TH/MM3 (4.0-11.0)
[2017-07-06 05:51] LABS: BICARBONATE 29.9 MEQ/L (21.0-32.0); CALCIUM 7.6 MG/DL (8.5-10.1); CREATININE 0.92 MG/DL (0.60-1.30); MAGNESIUM 2.5 MG/DL (1.5-2.5)
[2017-07-06] MEDS: PANTOPRAZOLE SOD 40 MG DELAYED RELEASE TAB PO SCH (05:59)
[2017-07-06] MEDS: AMIODARONE 200 MG TAB PO SCH ×3 (05:59→23:25)
--- NOTE | 2017-07-06 08:21 | EKG ---
Date Performed: 07/05/2017 Time Performed: 08:09:10 PTAGE: 71 years EKG: Sinus rhythm . Possible left anterior fascicular block Lateral ST elevation, CONSIDER ACUTE INFARCT Abnormal ECG PREVIOUS TRACING : 07/01/2017 03.28 DOCTOR: Adi Carrera Interpretating Date/Time 07/06/2017 08:19:31
[2017-07-06] MEDS: MULTIVITAMINS/MINERALS THERAPEUTIC TAB PO SCH (08:32)
[2017-07-06] MEDS: predniSONE 20 MG TAB PO SCH (08:32)
[2017-07-06] MEDS: POLYETHYLENE GLYCOL 17 GM PKG PO SCH (08:32)
[2017-07-06] MEDS: DOCUSATE SODIUM 100 MG CAP PO SCH ×2 (08:32→20:40)
[2017-07-06] MEDS: MAGNESIUM HYDROXIDE SUSP 30 ML CUP PO SCH (08:32)
[2017-07-06] MEDS: METOPROLOL TARTRATE 25 MG TAB PO SCH ×2 (08:33→20:40)
[2017-07-06] MEDS: SODIUM CHLORIDE 0.9% FLUSH 10 ML FLUSH IV FLUSH SCH ×2 (08:33→21:00)
[2017-07-06] MEDS: ATORVASTATIN 10 MG TAB PO SCH (08:45)
[2017-07-06] MEDS: ASPIRIN 81 MG CHEW TAB PO SCH (08:46)
[2017-07-06] MEDS: FUROSEMIDE 40 MG/4 ML VIAL IV PUSH SCH (11:47)
--- NOTE | 2017-07-06 12:16 | PD.CAR.PN ---
CVT Progress Note CVT: POD #: 2 Subjective/Hospital Course: 71-year-old male. He presented to the emergency room with chest pain. Apparently came in last evening. The pain started about 7 p.m. as a sharp pain in his left chest, short of breath. He tried to use his nebulizer which did not seem to help. He felt a little bit lightheaded. The pain started to radiate down his left arm, lasted about for 30 minutes. He has had history of coronary artery disease and has prior stenting x 3. He is normally on Plavix, but says he has run out of it for the last few days. His last dose was on Saturday. Troponins in the ED are 0.07. The patient underwent cardiac catheterization by Dr. Huitron , which showed an EF of 40%, proximal LAD 60% in stenosis, mid distal LAD 60%, diagonal was small at 70%, the OM 90%, the RCA 70%. There was also a small OM2 which had a 95% lesion. We were consulted to evaluate for coronary artery bypass grafting. PAST MEDICAL HISTORY: Includes coronary artery disease with prior [place], paroxysmal atrial fibrillation, peripheral neuropathy, hyperlipidemia, hypertension, history of shingles involving the right arm in the past. Previous torn rotator cuff on the right. 07/03 painfree last pm carotid US stable lower ext vein mapping / poor targets lower legs FEV1 1.20 continue nebs / IS for surgery in am 07/04 surgery: CABG x 3, WILLETT to LAD, SVG to OM1, SVG to PDA, EVH 2500cc crystalloid , 750cc cell saver, 1500cc EBL extubated after surgery / + solumedrol 07/05 very painful this am pain meds adjusted, started on BB , low dose diuretic IN NSR , ECG no acute changes stable to transfer to stepdown 07/06/17 c/o incisional pain. Objective: Vital Signs Date Time Temp Pulse Resp B/P (MAP) Pulse Ox O2 Delivery O2 Flow Rate FiO2 07/06/17 11:00 74 07/06/17 11:00 100 Nasal Cannula 1.00 07/06/17 11:00 97.7 74 16 101/60 (74) 100 07/06/17 10:30 96 Nasal Cannula 2.00 07/06/17 10:00 69 07/06/17 09:24 95 21 07/06/17 09:00 70 07/06/17 08:00 76 07/06/17 07:00 97.8 77 18 120/62 (81) 95 07/06/17 07:00 77 07/06/17 06:03 20 07/06/17 04:45 20 07/06/17 03:30 57 07/06/17 03:00 98.0 61 104/58 (73) 95 07/06/17 00:33 97.7 74 139/73 (95) 96 07/05/17 23:59 20 07/05/17 23:00 54 07/05/17 20:55 21 07/05/17 19:00 98.2 76 107/57 (74) 97 07/05/17 19:00 76 07/05/17 15:01 96 Room Air 07/05/17 15:01 97.9 89 18 108/64 (79) 96 Arterial Line 07/05/17 13:51 96 21 07/05/17 13:01 96 Room Air Labs: Laboratory Tests Test 07/06/17 04:40 White Blood Count 9.9 TH/MM3 (4.0-11.0) Red Blood Count 3.01 MIL/MM3 (4.50-5.90) Hemoglobin 9.3 GM/DL (13.0-17.0) Hematocrit 27.5 % (39.0-51.0) Mean Corpuscular Volume 91.3 FL (80.0-100.0) Mean Corpuscular Hemoglobin 30.9 PG (27.0-34.0) Mean Corpuscular Hemoglobin Concent 33.8 % (32.0-36.0) Red Cell Distribution Width 14.2 % (11.6-17.2) Platelet Count 133 TH/MM3 (150-450) Mean Platelet Volume 8.5 FL (7.0-11.0) Neutrophils (%) (Auto) 79.5 % (16.0-70.0) Lymphocytes (%) (Auto) 12.4 % (9.0-44.0) Monocytes (%) (Auto) 7.9 % (0.0-8.0) Eosinophils (%) (Auto) 0.1 % (0.0-4.0) Basophils (%) (Auto) 0.1 % (0.0-2.0) Neutrophils # (Auto) 7.9 TH/MM3 (1.8-7.7) Lymphocytes # (Auto) 1.2 TH/MM3 (1.0-4.8) Monocytes # (Auto) 0.8 TH/MM3 (0-0.9) Eosinophils # (Auto) 0.0 TH/MM3 (0-0.4) Basophils # (Auto) 0.0 TH/MM3 (0-0.2) CBC Comment DIFF FINAL Differential Comment Blood Urea Nitrogen 21 MG/DL (7-18) Creatinine 0.92 MG/DL (0.60-1.30) Random Glucose 76 MG/DL (74-106) Calcium Level 7.6 MG/DL (8.5-10.1) Magnesium Level 2.5 MG/DL (1.5-2.5) Sodium Level 141 MEQ/L (136-145) Potassium Level 4.2 MEQ/L (3.5-5.1) Chloride Level 105 MEQ/L (98-107) Carbon Dioxide Level 29.9 MEQ/L (21.0-32.0) Anion Gap 6 MEQ/L (5-15) Estimat Glomerular Filtration Rate 82 ML/MIN (>89) Result Diagram: 07/06/1743907/06/17439 Cardiovascular: RRR Telemetry: NSR Pulmonary: CTA GI/: NABS Incision: dry and intact CT: ~300ml/12hrs Plan: Chest tube to water seal Encourage ambulation Continue chest tubes one more day Stim BM Chest tubes to water seal Plan d/c to SNF (1) S/P CABG (coronary artery bypass graft) Plan: ASA, statin, BB , amiodarone gentle diuresis OOB/ ambulate pain meds adjusted eval for SNF placement (2) Coronary artery disease (3) COPD (chronic obstructive pulmonary disease) Plan: scheduled nebs (4) Chest pain (5) Neuropathy Temi Shaw MD July 06, 2017 12:16
[2017-07-06] MEDS: SENNOSIDES 8.6 MG TAB PO SCH (20:40)
[2017-07-06] MEDS: oxyCODONE/ACETAMINOPHEN 5 MG/325 MG TAB PO PRN (20:40)
[2017-07-07] VITALS (28 sets, daily range): BP systolic 93–142; BP diastolic 50–79; PULSE 50–72; RESP 16–20; TEMP 97.9–99.6; O2SAT 93–99
[2017-07-07] MEDS: oxyCODONE/ACETAMINOPHEN 5 MG/325 MG TAB PO PRN (01:52)
[2017-07-07] MEDS: RESP: ALBUTEROL 2.5 MG/IPRATROPIUM 0.5 MG NEB (SCH) NEB ×5 (04:00→22:00)
[2017-07-07] MEDS: PANTOPRAZOLE SOD 40 MG DELAYED RELEASE TAB PO SCH (05:41)
[2017-07-07] MEDS: INSULIN ASPART SUPPLEMENTAL SCALE SQ SCH ×4 (08:00→21:00)
[2017-07-07] MEDS: ACETAMINOPHEN/HYDROcodone 325 MG/5 MG TAB PO PRN (08:12)
[2017-07-07] MEDS: AMIODARONE 200 MG TAB PO SCH ×3 (08:16→22:09)
[2017-07-07] MEDS: ATORVASTATIN 10 MG TAB PO SCH (08:58)
[2017-07-07] MEDS: predniSONE 10 MG TAB PO SCH (08:58)
[2017-07-07] MEDS: SODIUM CHLORIDE 0.9% FLUSH 10 ML FLUSH IV FLUSH SCH ×2 (08:58→20:02)
[2017-07-07] MEDS: FUROSEMIDE 40 MG/4 ML VIAL IV PUSH SCH (08:58)
[2017-07-07] MEDS: POLYETHYLENE GLYCOL 17 GM PKG PO SCH (08:59)
[2017-07-07] MEDS: MULTIVITAMINS/MINERALS THERAPEUTIC TAB PO SCH (08:59)
[2017-07-07] MEDS: METOPROLOL TARTRATE 25 MG TAB PO SCH ×2 (08:59→20:02)
[2017-07-07] MEDS: DOCUSATE SODIUM 100 MG CAP PO SCH ×2 (08:59→20:01)
[2017-07-07] MEDS: MAGNESIUM HYDROXIDE SUSP 30 ML CUP PO SCH (08:59)
[2017-07-07] MEDS: ASPIRIN 81 MG CHEW TAB PO SCH (08:59)
--- NOTE | 2017-07-07 09:58 | PD.CAR.PN ---
CVT Progress Note CVT: POD #: 3 Subjective/Hospital Course: 71-year-old male. He presented to the emergency room with chest pain. Apparently came in last evening. The pain started about 7 p.m. as a sharp pain in his left chest, short of breath. He tried to use his nebulizer which did not seem to help. He felt a little bit lightheaded. The pain started to radiate down his left arm, lasted about for 30 minutes. He has had history of coronary artery disease and has prior stenting x 3. He is normally on Plavix, but says he has run out of it for the last few days. His last dose was on Saturday. Troponins in the ED are 0.07. The patient underwent cardiac catheterization by Dr. Huitron , which showed an EF of 40%, proximal LAD 60% in stenosis, mid distal LAD 60%, diagonal was small at 70%, the OM 90%, the RCA 70%. There was also a small OM2 which had a 95% lesion. We were consulted to evaluate for coronary artery bypass grafting. PAST MEDICAL HISTORY: Includes coronary artery disease with prior [place], paroxysmal atrial fibrillation, peripheral neuropathy, hyperlipidemia, hypertension, history of shingles involving the right arm in the past. Previous torn rotator cuff on the right. 07/03 painfree last pm carotid US stable lower ext vein mapping / poor targets lower legs FEV1 1.20 continue nebs / IS for surgery in am 07/04 surgery: CABG x 3, WILLETT to LAD, SVG to OM1, SVG to PDA, EVH 2500cc crystalloid , 750cc cell saver, 1500cc EBL extubated after surgery / + solumedrol 07/05 very painful this am pain meds adjusted, started on BB , low dose diuretic IN NSR , ECG no acute changes stable to transfer to stepdown 07/06/17 c/o incisional pain. 07/07/17 c/o pain - chronic neuropathy Objective: Vital Signs Date Time Temp Pulse Resp B/P (MAP) Pulse Ox O2 Delivery O2 Flow Rate FiO2 07/07/17 06:05 55 07/07/17 05:00 55 07/07/17 04:30 98.1 55 16 93/50 (64) 98 07/07/17 04:00 55 07/07/17 03:00 55 07/07/17 02:00 50 07/07/17 01:00 54 07/07/17 00:00 56 07/07/17 00:00 98.2 55 16 116/64 (81) 98 07/06/17 23:08 55 07/06/17 22:00 54 07/06/17 21:05 95 Nasal Cannula 2.00 07/06/17 21:00 58 07/06/17 20:00 60 07/06/17 20:00 97.9 64 18 133/58 (83) 99 07/06/17 19:00 64 07/06/17 18:00 64 07/06/17 17:00 61 07/06/17 16:00 62 07/06/17 15:00 98.7 58 16 99/55 (70) 95 07/06/17 15:00 58 07/06/17 14:00 58 07/06/17 13:00 90 07/06/17 12:00 74 07/06/17 11:30 96 07/06/17 11:00 74 07/06/17 11:00 100 Nasal Cannula 1.00 07/06/17 11:00 97.7 74 16 101/60 (74) 100 07/06/17 10:30 96 Nasal Cannula 2.00 07/06/17 10:00 69 Result Diagram: 07/06/1743907/06/17 044 Cardiovascular: RRR Telemetry: NSR Pulmonary: CTA GI/: NABS, NT Incision: dry and intact CT: 50ml/12hrs Plan: Remove chest tubes Plan d/c in AM (1) S/P CABG (coronary artery bypass graft) Plan: ASA, statin, BB , amiodarone gentle diuresis OOB/ ambulate pain meds adjusted eval for SNF placement (2) Coronary artery disease (3) COPD (chronic obstructive pulmonary disease) Plan: scheduled nebs (4) Chest pain (5) Neuropathy Temi Shaw MD July 07, 2017 09:58
[2017-07-07] MEDS: oxyCODONE/ACETAMINOPHEN 10 MG/325 MG TAB PO PRN ×3 (13:32→23:16)
[2017-07-07] MEDS: SENNOSIDES 8.6 MG TAB PO SCH (20:01)
[2017-07-08] VITALS (26 sets, daily range): BP systolic 101–135; BP diastolic 51–63; PULSE 52–76; RESP 18–20; TEMP 97.8–98.7; O2SAT 93–98
[2017-07-08] MEDS: oxyCODONE/ACETAMINOPHEN 10 MG/325 MG TAB PO PRN ×5 (03:57→23:46)
[2017-07-08] MEDS: RESP: ALBUTEROL 2.5 MG/IPRATROPIUM 0.5 MG NEB (SCH) NEB (04:00)
[2017-07-08] MEDS: PANTOPRAZOLE SOD 40 MG DELAYED RELEASE TAB PO SCH (05:55)
[2017-07-08] MEDS: AMIODARONE 200 MG TAB PO SCH ×3 (05:55→21:23)
[2017-07-08] MEDS: INSULIN ASPART SUPPLEMENTAL SCALE SQ SCH ×4 (08:00→21:00)
[2017-07-08] MEDS: MULTIVITAMINS/MINERALS THERAPEUTIC TAB PO SCH (08:05)
[2017-07-08] MEDS: METOPROLOL TARTRATE 25 MG TAB PO SCH ×2 (08:06→21:23)
[2017-07-08] MEDS: ASPIRIN 81 MG CHEW TAB PO SCH (08:06)
[2017-07-08] MEDS: ATORVASTATIN 10 MG TAB PO SCH (08:06)
[2017-07-08] MEDS: MAGNESIUM HYDROXIDE SUSP 30 ML CUP PO SCH (08:07)
[2017-07-08] MEDS: SODIUM CHLORIDE 0.9% FLUSH 10 ML FLUSH IV FLUSH SCH ×2 (08:07→21:00)
[2017-07-08] MEDS: FUROSEMIDE 40 MG/4 ML VIAL IV PUSH SCH (08:07)
[2017-07-08] MEDS: DOCUSATE SODIUM 100 MG CAP PO SCH ×2 (08:07→21:00)
[2017-07-08] MEDS: predniSONE 10 MG TAB PO SCH (08:09)
[2017-07-08] MEDS: POLYETHYLENE GLYCOL 17 GM PKG PO SCH (08:20)
[2017-07-08 14:42] LABS: BILIRUBIN, URINE NEG (NEG); BLOOD, URINE NEG (NEG); GLUCOSE,URINE NEG (NEG); KETONE, URINE NEG (NEG); NITRITE,URINE NEG (NEG); SQUAMOUS EPITHELIAL CELL URINE <1 /hpf (0-5); URINE COLOR YELLOW (YELLW/STRAW); URINE LEUKOCYTE ESTERASE NEG (NEG)
--- NOTE | 2017-07-08 16:23 | PD.CAR.PN ---
CVT Progress Note Subjective/Hospital Course: 71-year-old male. He presented to the emergency room with chest pain. Apparently came in last evening. The pain started about 7 p.m. as a sharp pain in his left chest, short of breath. He tried to use his nebulizer which did not seem to help. He felt a little bit lightheaded. The pain started to radiate down his left arm, lasted about for 30 minutes. He has had history of coronary artery disease and has prior stenting x 3. He is normally on Plavix, but says he has run out of it for the last few days. His last dose was on Saturday. Troponins in the ED are 0.07. The patient underwent cardiac catheterization by Dr. Huitron , which showed an EF of 40%, proximal LAD 60% in stenosis, mid distal LAD 60%, diagonal was small at 70%, the OM 90%, the RCA 70%. There was also a small OM2 which had a 95% lesion. We were consulted to evaluate for coronary artery bypass grafting. PAST MEDICAL HISTORY: Includes coronary artery disease with prior [place], paroxysmal atrial fibrillation, peripheral neuropathy, hyperlipidemia, hypertension, history of shingles involving the right arm in the past. Previous torn rotator cuff on the right. 07/03 painfree last pm carotid US stable lower ext vein mapping / poor targets lower legs FEV1 1.20 continue nebs / IS for surgery in am 07/04 surgery: CABG x 3, WILLETT to LAD, SVG to OM1, SVG to PDA, EVH 2500cc crystalloid , 750cc cell saver, 1500cc EBL extubated after surgery / + solumedrol 07/05 very painful this am pain meds adjusted, started on BB , low dose diuretic IN NSR , ECG no acute changes stable to transfer to stepdown 07/06/17 c/o incisional pain. 07/07/17 c/o pain - chronic neuropathy 07/08 not feeling as well today slight burning on urination , will check labs UA negative on room air pain controlled Objective: GENERAL: A&O x 3 SKIN: Warm and dry. prevena dressing to chest / incision intact to left leg HEAD: Normocephalic. EYES: No scleral icterus. No injection or drainage. NECK: Supple, trachea midline. No JVD or lymphadenopathy. CARDIOVASCULAR: Regular rate and rhythm without murmurs, gallops, or rubs. RESPIRATORY: Breath sounds equal bilaterally. No accessory muscle use. GASTROINTESTINAL: Abdomen soft, non-tender, nondistended. MUSCULOSKELETAL: No cyanosis, or edema. BACK: Nontender without obvious deformity. No CVA tenderness. Vital Signs Date Time Temp Pulse Resp B/P (MAP) Pulse Ox O2 Delivery O2 Flow Rate FiO2 07/08/17 14:00 72 07/08/17 13:00 72 07/08/17 12:00 60 07/08/17 11:30 97.8 60 18 101/51 (68) 93 07/08/17 11:00 70 07/08/17 10:11 98 21 07/08/17 10:00 68 07/08/17 09:00 76 07/08/17 07:30 62 07/08/17 07:30 98.5 62 18 135/63 (87) 94 07/08/17 05:03 56 07/08/17 04:00 98.7 59 18 133/59 (83) 95 07/08/17 04:00 59 07/08/17 03:13 55 07/08/17 02:00 55 07/08/17 01:00 54 07/08/17 00:00 56 07/07/17 23:17 98.2 58 20 93/55 (68) 95 07/07/17 23:00 55 07/07/17 22:00 60 07/07/17 21:52 94 21 07/07/17 21:00 58 07/07/17 20:00 52 07/07/17 20:00 99.6 55 20 142/79 (100) 97 07/07/17 19:00 64 07/07/17 18:00 66 07/07/17 17:00 70 Labs: Laboratory Tests Test 07/08/17 13:30 Urine Color YELLOW (YELLW/STRAW) Urine Turbidity CLEAR (CLEAR) Urine pH 5.0 (5.0-8.5) Urine Specific [place] 1.010 (1.002-1.035) Urine Protein NEG mg/dL (NEG-TRACE) Urine Glucose (UA) NEG mg/dL (NEG) Urine Ketones NEG mg/dL (NEG) Urine Occult Blood NEG (NEG) Urine Nitrite NEG (NEG) Urine Bilirubin NEG (NEG) Urine Urobilinogen LESS THAN 2.0 MG/DL (LESS Urine Leukocyte Esterase NEG (NEG) Urine RBC LESS THAN 1 /hpf (0-3) Urine WBC 2 /hpf (0-5) Urine Squamous Epithelial Cells <1 /hpf (0-5) Microscopic Urinalysis Comment CULT NOT INDICATED Result Diagram: 07/06/1743907/06/17439 (1) S/P CABG (coronary artery bypass graft) Plan: ASA, statin, BB , amiodarone diuresis OOB/ ambulate pain meds adjusted eval for SNF placement in am check labs and cxr (2) Coronary artery disease (3) COPD (chronic obstructive pulmonary disease) Plan: scheduled nebs (4) Chest pain (5) Neuropathy Susan Guevara July 08, 2017 16:23
--- NOTE | 2017-07-08 17:10 | RADRPT ---
EXAM DATE/TIME: 07/08/2017 16:54 [facility] COMPARISON: CHEST SINGLE AP, July 04, 2017, 12:45. CHEST SINGLE AP, July 05, 2017, 4:24. INDICATIONS : Post chest tube removal MEDICAL HISTORY : Ulcers. DC. CAD. COPD. Torn rotator cuff. RA. SURGICAL HISTORY : Coronary stent. Herniorrhaphy. Cardiac catheterization. ENCOUNTER: Subsequent ACUITY: 4 - 6 days PAIN SCORE: 0/10 LOCATION: chest FINDINGS: Abnormal left IJ catheter, mediastinal drain and left apical chest tube. There is a small left apical pneumothorax. Redemonstration of minimal bibasilar airspace disease. Cardiomediastinal contours are stable. Remainder of the exam is unchanged. CONCLUSION: 1. Suspect small left apical pneumothorax following chest tube removal. 2. Stable bibasilar airspace disease, likely atelectasis. Merrill Oliva MD on July 08, 2017 at 17:06 Board Certified Radiologist. This report was verified electronically.
[2017-07-08] MEDS: LISINOPRIL 5 MG TAB PO SCH (17:35)
[2017-07-08 18:32] LABS: HEMOGLOBIN 10.8 GM/DL (13.0-17.0); MEAN CORPUSCULAR HEMOGLOBIN 30.2 PG (27.0-34.0); MEAN CORPUSCULAR HGB CONC 32.8 % (32.0-36.0); MEAN PLATELET VOLUME 8.9 FL (7.0-11.0); PLATELET COUNT 285 TH/MM3 (150-450); RED BLOOD COUNT 3.58 MIL/MM3 (4.50-5.90); RED CELL DISTRIBUTION WIDTH 14.2 % (11.6-17.2); WHITE BLOOD COUNT 15.9 TH/MM3 (4.0-11.0)
[2017-07-08 19:17] LABS: BICARBONATE 32.5 MEQ/L (21.0-32.0); CALCIUM 8.1 MG/DL (8.5-10.1); CREATININE 1.07 MG/DL (0.60-1.30)
[2017-07-08] MEDS: SENNOSIDES 8.6 MG TAB PO SCH (21:00)
[2017-07-09] VITALS (15 sets, daily range): BP systolic 90–100; BP diastolic 53–58; PULSE 54–72; RESP 18–20; TEMP 98.3–98.7; O2SAT 94–96
[2017-07-09] MEDS: oxyCODONE/ACETAMINOPHEN 10 MG/325 MG TAB PO PRN ×3 (03:46→13:38)
[2017-07-09] MEDS: PANTOPRAZOLE SOD 40 MG DELAYED RELEASE TAB PO SCH (06:15)
[2017-07-09] MEDS: AMIODARONE 200 MG TAB PO SCH ×2 (06:16→13:39)
[2017-07-09] MEDS: INSULIN ASPART SUPPLEMENTAL SCALE SQ SCH ×2 (08:00→12:00)
[2017-07-09] MEDS: FUROSEMIDE 40 MG/4 ML VIAL IV PUSH SCH (08:48)
[2017-07-09] MEDS: ASPIRIN 81 MG CHEW TAB PO SCH (08:49)
[2017-07-09] MEDS: MULTIVITAMINS/MINERALS THERAPEUTIC TAB PO SCH (08:50)
[2017-07-09] MEDS: ATORVASTATIN 10 MG TAB PO SCH (08:50)
[2017-07-09] MEDS: METOPROLOL TARTRATE 25 MG TAB PO SCH (08:50)
[2017-07-09] MEDS: MAGNESIUM HYDROXIDE SUSP 30 ML CUP PO SCH (08:50)
[2017-07-09] MEDS: DOCUSATE SODIUM 100 MG CAP PO SCH (08:50)
[2017-07-09] MEDS: predniSONE 10 MG TAB PO SCH (08:50)
[2017-07-09] MEDS: LISINOPRIL 5 MG TAB PO SCH (08:50)
[2017-07-09] MEDS: POLYETHYLENE GLYCOL 17 GM PKG PO SCH (08:51)
[2017-07-09] MEDS: SODIUM CHLORIDE 0.9% FLUSH 10 ML FLUSH IV FLUSH SCH (08:51)
[2017-07-09] MEDS ORDERED: CLOPIDOGREL 75 MG TAB PO SCH (09:00)
[2017-07-09] MEDS ORDERED: OXYC1TAB36 PO (10:38)
[2017-07-09] MEDS ORDERED: AMIO200T PO (10:38)
[2017-07-09] MEDS ORDERED: LISI-519 PO (10:38)
[2017-07-09] MEDS ORDERED: METO25TA3 PO (10:38)
[2017-07-09] MEDS ORDERED: PRED10 PO (10:38)
[2017-07-09] MEDS ORDERED: THERM PO (10:38)
[2017-07-09] MEDS ORDERED: PLAV75TA29 PO (10:38)
[2017-07-09] MEDS ORDERED: LIPI10TA PO (10:38)
[2017-07-09] MEDS ORDERED: DOCU1CAP39 PO (10:38)
[2017-07-09] MEDS ORDERED: ASPI81 PO (10:38)
--- NOTE | 2017-07-09 10:46 | HHI.DS ---
Discharge Summary Admission Date July 02, 2017 at 17:30 Discharge Date: July 09, 2017 Admitting Diagnosis cp r/o ACS (1) Multi-vessel coronary artery stenosis ICD Codes: I25.10 - Atherosclerotic heart disease of [place] coronary artery without angina pectoris (2) Chest pain, rule out acute myocardial infarction Diagnosis: Principal ICD Codes: R07.9 - Chest pain, unspecified Status: Acute (3) Coronary artery disease Diagnosis: Principal ICD Codes: I25.10 - Atherosclerotic heart disease of [place] coronary artery without angina pectoris (4) COPD (chronic obstructive pulmonary disease) Diagnosis: Principal ICD Codes: J44.9 - Chronic obstructive pulmonary disease, unspecified Status: Chronic (5) Neuropathy Diagnosis: Principal ICD Codes: G62.9 - Polyneuropathy, unspecified Status: Chronic (6) NSTEMI (non-ST elevated myocardial infarction) ICD Codes: I21.4 - Non-ST elevation (NSTEMI) myocardial infarction (7) S/P CABG (coronary artery bypass graft) Diagnosis: Secondary ICD Codes: Z95.1 - Presence of aortocoronary bypass graft Procedures 07/04 CABG x 3 WILLETT to LAD SVG to OM1 SVG to PDA L EVH Brief History 07/03 painfree last pm carotid US stable lower ext vein mapping / poor targets lower legs FEV1 1.20 continue nebs / IS for surgery in am 07/04 surgery: CABG x 3, WILLETT to LAD, SVG to OM1, SVG to PDA, EVH 2500cc crystalloid , 750cc cell saver, 1500cc EBL extubated after surgery / + solumedrol 07/05 very painful this am pain meds adjusted, started on BB , low dose diuretic IN NSR , ECG no acute changes stable to transfer to stepdown 07/06/17 c/o incisional pain. 07/07/17 c/o pain - chronic neuropathy 07/08 not feeling as well today slight burning on urination , will check labs UA negative on room air pain controlled CBC/BMP: 07/08/17 1734 07/08/17 1734 Significant Findings Laboratory Tests Test 07/08/17 13:30 07/08/17 17:34 White Blood Count 15.9 TH/MM3 (4.0-11.0) Red Blood Count 3.58 MIL/MM3 (4.50-5.90) Hemoglobin 10.8 GM/DL (13.0-17.0) Hematocrit 33.0 % (39.0-51.0) Blood Urea Nitrogen 27 MG/DL (7-18) Random Glucose 142 MG/DL (74-106) Calcium Level 8.1 MG/DL (8.5-10.1) Carbon Dioxide Level 32.5 MEQ/L (21.0-32.0) Estimat Glomerular Filtration Rate 69 ML/MIN (>89) Imaging Last Impressions Chest X-Ray 07/08/17 0000 Signed Impressions: Service Date/Time: Saturday, July 08, 2017 16:54 - CONCLUSION: 1. Suspect small left apical pneumothorax following chest tube removal. 2. Stable bibasilar airspace disease, likely atelectasis. Merrill Oliva MD Lower Extremity Ultrasound 07/02/17 0000 Signed Impressions: Service Date/Time: Sunday, July 02, 2017 14:07 - CONCLUSION: 1. Lower extremity venous mapping, as above. Merrill Oliva MD Carotid Artery Ultrasound 07/02/17 0000 Signed Impressions: Service Date/Time: Sunday, July 02, 2017 13:55 - CONCLUSION: 1. Mild bilateral carotid plaque with resultant mild, less than 50%%, stenosis bilaterally. 2. Antegrade vertebral artery flow bilaterally. Merrill Oliva MD PE at Discharge GENERAL: A&O x 3 SKIN: Warm and dry. prevena dressing to chest/ chest tube site mild erythema / steri strip placed HEAD: Normocephalic. EYES: No scleral icterus. No injection or drainage. NECK: Supple, trachea midline. No JVD or lymphadenopathy. CARDIOVASCULAR: Regular rate and rhythm without murmurs, gallops, or rubs. RESPIRATORY: Breath sounds equal bilaterally. No accessory muscle use. diminished in bases GASTROINTESTINAL: Abdomen soft, non-tender, nondistended. MUSCULOSKELETAL: No cyanosis, or edema. BACK: Nontender without obvious deformity. No CVA tenderness. Hospital Course 07/03 painfree last pm carotid US stable lower ext vein mapping / poor targets lower legs FEV1 1.20 continue nebs / IS for surgery in am 510 surgery: CABG x 3, WILLETT to LAD, SVG to OM1, SVG to PDA, EVH 2500cc crystalloid , 750cc cell saver, 1500cc EBL extubated after surgery / + solumedrol 07/05 very painful this am pain meds adjusted, started on BB , low dose diuretic IN NSR , ECG no acute changes stable to transfer to stepdown 07/06/17 c/o incisional pain. 07/07/17 c/o pain - chronic neuropathy 07/08 not feeling as well, did not want to be discharged today 07/09 no fevers, on room air , CXR noted stable small right PTX has f/u CXR in one week ok to dc to SNF Pt Condition on Discharge: Good Discharge Disposition: Discharge to SNF Discharge Instructions DIET: Follow Instructions for: Heart Healthy Diet Activities you can perform: Full Weight Bearing, Shower Only-No Bath Activities to avoid: Strenuous Activity, Driving Additional Activity Instructio: no lifting > 8 lbs or gallon of milk Follow up Referrals: Cardiology, Interventional - 4 Weeks @ [facility] with Leanna Pires MD PCP Follow-up - 2 Weeks with Cec[facility] Surgical - 2 Weeks with Temi Shaw MD New Orders: BASIC METABOLIC PROF - 2 Weeks CBC NO DIFF - 2 Weeks X-RAY CHEST PA & LAT - 2 Weeks New Medications: Amiodarone (Amiodarone) 200 Mg Tab 200 MG PO Q12HR for heart rhythm, #28 TAB 0 Refills x 2 weeks only Aspirin (Tgt Aspirin) 81 Mg Chw 81 MG PO DAILY for Blood Clot Prevention, #30 EA 2 Refills Atorvastatin (Lipitor) 10 Mg Tab 40 MG PO DAILY for Cholesterol Management, #30 TAB 2 Refills Clopidogrel (Plavix) 75 Mg Tab 75 MG PO DAILY for Blood Clot Prevention, #30 TAB 2 Refills Docusate Sodium (Dok) 100 Mg Cap 100 MG PO BID for Constipation, #60 CAP 0 Refills Lisinopril (Lisinopril) 5 Mg Tab 5 MG PO DAILY for Blood Pressure Management, #30 TAB 2 Refills Metoprolol Tartrate (Metoprolol Tartrate) 25 Mg Tab 25 MG PO BID for Blood Pressure Management, #60 TAB 3 Refills Multiple Vitamins W/ Minerals (Thera M Plus) 1 Tab 1 TAB PO DAILY for multi vitamin, #30 TAB 2 Refills Oxycodone HCl/Acetaminophen (Oxycodone-Acetaminophen 10-325) 10 Mg-325 Mg Tablet 1 TAB PO Q4H PRN for PAIN SCALE 1 TO 5, #40 TAB 0 Refills Prednisone (Prednisone) 10 Mg Tab 10 MG PO DAILY for chronic steroid use, #30 TAB 1 Refill Continued Medications: Tramadol (Tramadol) 50 Mg Tab 50 MG PO Q4H PRN for PAIN, TAB 0 Refills Discontinued Medications: Hydrocodone/Acetaminophen (Hydrocodone-Acetamin 10-325 mg) 10 Mg-325 Mg Tablet 1 TAB PO Q4H PRN for PAIN SCALE 1 TO 10, #10 MG Prednisone (Prednisone) 20 Mg Tab 20 MG PO DAILY for Dyspnea, TAB 0 Refills Susan Guevara July 09, 2017 10:46
== END 2017-07-09 13:55 | DRG 234 ==
LOC: NEPC 21:05 → NEDA 23:38 → NEPGCP 07-01 01:37 → HCIS 07-02 09:43 → HCPC 07-02 11:45 → OBSVTOIN 07-02 17:30 → HCVI 07-03 18:24 → HCPC 07-05 11:15
PROVIDERS: ADMIT Thoracic Surgery (Cardiothoracic Vascular Surgery); ATTEND Thoracic Surgery (Cardiothoracic Vascular Surgery)
PROC: B2151ZZ Fluoroscopy of Left Heart using Low Osmolar Contrast (ICD-10-PCS; 2017-07-02)
PROC: B2111ZZ Fluoroscopy of Multiple Coronary Arteries using Low Osmolar Contrast (ICD-10-PCS; 2017-07-02)
PROC: 4A023N7 Measurement of Cardiac Sampling and Pressure, Left Heart, Percutaneous Approach (ICD-10-PCS; principal; 2017-07-02 07:30)
PROC: 021109W Bypass Coronary Artery, Two Arteries from Aorta with Autologous Venous Tissue, Open Approach (ICD-10-PCS; 2017-07-04)
PROC: 06BQ4ZZ Excision of Left Saphenous Vein, Percutaneous Endoscopic Approach (ICD-10-PCS; 2017-07-04)
PROC: 5A1221Z Performance of Cardiac Output, Continuous (ICD-10-PCS; 2017-07-04)
PROC: 02100Z9 Bypass Coronary Artery, One Artery from Left Internal Mammary, Open Approach (ICD-10-PCS; 2017-07-04 08:15)
DX: I21.4 Non-ST elevation (NSTEMI) myocardial infarction (principal); G62.9 Polyneuropathy, unspecified; I48.0 Paroxysmal atrial fibrillation; J44.9 Chronic obstructive pulmonary disease, unspecified; I10 Essential (primary) hypertension; E78.5 Hyperlipidemia, unspecified; I25.10 Atherosclerotic heart disease of native coronary artery without angina pectoris; I73.9 Peripheral vascular disease, unspecified; M06.9 Rheumatoid arthritis, unspecified; I25.2 Old myocardial infarction; Z95.5 Presence of coronary angioplasty implant and graft; Z87.891 Personal history of nicotine dependence; Z79.52 Long term (current) use of systemic steroids
CPT/HCPCS: 36430; 71045; 76937; 80048; 80053; 80061; 81001; 82550; 82948; 83036; 83690; 83735; 83880; 84484; 85025; 85027; 85379; 85610; 85730; 86850; 86900; 86901; 86920; 87641; 93005; 93306; 93458; 93880; 93970; 93998; 94002; 94010; 94150; 94640; 94664; 94667; 94668; C1769; C1893; C9248; J0131; J1644; J1815; J1817; J1885; J1940; J2150; J2250; J2370; J2440; J2720; J2930; J3010; J3370; J3475; J3480; J7030; J7040; J7050; J7120; J7512; P9016; P9045; P9047; Q9967

== ENCOUNTER 2017-07-31 13:56 | Inpatient (IN) | payer OTHER, MEDICARE ==
[2017-07-31] VITALS (7 sets, daily range): BP systolic 95–115; BP diastolic 59–74; PULSE 115–126; RESP 16–20; TEMP 97.3–97.7; O2SAT 97–100
[~2017-07-31] VITALS: Ht 177.8 cm; Wt 70.4 kg
[~2017-07-31 13:56] MED LIST changes: +AMIO200T PO; +ASPI81 PO; +DOCU1CAP39 PO; -HYDR-3583 PO; +LIPI10TA PO; +LISI-519 PO; +METO25TA3 PO; +OXYC1TAB36 PO; +PRED10 PO; -PRED20 PO; +THERM PO
[2017-07-31] MEDS ORDERED: SODIUM CHLORIDE 0.9% FLUSH 10 ML FLUSH IVF PRN (16:00)
--- NOTE | 2017-07-31 16:14 | PD ---
HPI Chief Complaint: Respiratory Symptoms Time Seen by Provider: 15:44 Travel History International Travel<30 days: No Contact w/Intl Traveler<30days: No Traveled to known affect area: No History of Present Illness HPI 71-year-old male that presents to the ED for evaluation of shortness of breath and chest pain. Per patient he developed the shortness of breath chest pain today. Has history of COPD as well as triple bypass surgery that was done at this hospital about a month ago. Patient follows with Dr. Garcia for this. Follows with primary care doctor for this. Apparently he was released from rehab on Saturday. He has been doing okay since but today he developed shortness of breath with ambulating and made the pain worse. He denies any injury or trauma. He states that he does use his DuoNeb with minimal relief and per patient and actually made it worse. He states having chest pain currently. He attributed this more to the scar of his chest. He denies any medication changes currently. He does take Plavix and states compliance with medications except aspirin. He denies any urinary or bowel movement issues. He states having some congestion and cough. He has not smoking 30 years per patient. No drugs. He was put on oxygen here but he does not take oxygen at home. Pain per patient is 6 out of 10. PFSH Past Medical History Hx Anticoagulant Therapy: Yes Arthritis: Yes (RA) Asthma: Yes Autoimmune Disease: Yes (RA) Anxiety: No Depression: No Heart Rhythm Problems: No Cancer: No Cardiac Catheterization: Yes (2016) Cardiovascular Problems: Yes High Cholesterol: No Chemotherapy: No Chest Pain: No Congestive Heart Failure: No COPD: Yes Cerebrovascular Accident: No Coronary Artery Disease: Yes Diabetes: No Diminished Hearing: No Endocrine: No Gastrointestinal Disorders: No GERD: No Genitourinary: No Headaches: No Hepatitis: No Hiatal Hernia: No Hypertension: Yes Immune Disorder: No Implanted Vascular Access Dvce: No Kidney Stones: No Musculoskeletal: Yes (torn rotator cuff) Neurologic: No Psychiatric: No Reproductive: No Respiratory: Yes (COPD, asthma ) Migraines: No Myocardial Infarction: Yes Radiation Therapy: No Renal Failure: No Seizures: No Shingles: Yes Sickle Cell Disease: No Sleep Apnea: No Thyroid Disease: No Ulcer: No PNEUMOCCOCAL Vaccine (Year): 1 Past Surgical History Abdominal Surgery: Yes (HERNIORRHAPHY) AICD: No Appendectomy: No Arteriovenous Shunt: No Cardiac Surgery: No (HX. OF STENT X2 THIS VISIT 06/30/17) Cholecystectomy: No Coronary Artery Bypass Graft: No Coronary Stent: Yes (x3) Ear Surgery: No Endocrine Surgery: No Eye Surgery: Yes (JHON CATARACTS) Genitourinary Surgery: No Gynecologic Surgery: No Insulin Pump: No Joint Replacement: No Neurologic Surgery: No Oral Surgery: No Pacemaker: No Thoracic Surgery: No Tonsillectomy: Yes (HAS HAD TESTICULAR SURGERY) Other Surgery: Yes (sinus) Social History Alcohol Use: Yes (OCC) Tobacco Use: No Substance Use: No Allergies-Medications (Allergen,Severity, Reaction): Coded Allergies: levofloxacin (Verified Allergy, Severe, unknown, 06/30/17) patient has a cross sensitvity to avelox morphine (Verified Allergy, Severe, UNKNOWN, 06/30/17) moxifloxacin (Verified Allergy, Severe, Anaphylaxis, 06/30/17) penicillin G (Verified Allergy, Severe, rash, 06/30/17) sulfamethoxazole (Verified Allergy, Severe, RASH, 06/30/17) trimethoprim (Verified Allergy, Severe, RASH, 06/30/17) cefuroxime (Verified Adverse Reaction, Intermediate, Rash, 06/30/17) Reported Meds & Prescriptions Reported Meds & Active Scripts Active Prednisone 10 Mg Tab 10 Mg PO DAILY Dok (Docusate Sodium) 100 Mg Cap 100 Mg PO BID Oxycodone-Acetaminophen 10-325 (Oxycodone HCl/Acetaminophen) 10 Mg-325 Mg Tablet 1 Tab PO Q4H PRN Tgt Aspirin (Aspirin) 81 Mg Chw 81 Mg PO DAILY Lisinopril 5 Mg Tab 5 Mg PO DAILY Metoprolol Tartrate 25 Mg Tab 25 Mg PO BID Lipitor (Atorvastatin Calcium) 10 Mg Tab 40 Mg PO DAILY Plavix (Clopidogrel Bisulfate) 75 Mg Tab 75 Mg PO DAILY Reported Omeprazole 20 Mg Tab 20 Mg PO DAILY Gabapentin 100 Mg Cap 100 Mg PO BID Magnesium Oxide 500 Mg Cap Ferrous Sulfate 325 Mg (65 Mg Iron) Tablet 325 Mg PO BIDPC Review of Systems Except as stated in HPI: all other systems reviewed are Neg Physical Exam Narrative GENERAL: SKIN: Warm and dry. HEAD: Atraumatic. Normocephalic. EYES: Pupils equal and round. No scleral icterus. No injection or drainage. ENT: No nasal bleeding or discharge. Mucous membranes pink and moist. Tongue is midline. No uvula deviation. NECK: Trachea midline. No JVD. CARDIOVASCULAR: Irregular rate and rhythm. No murmurs, S3, S4. RESPIRATORY: No accessory muscle use. Clear to auscultation. Breath sounds equal bilaterally. GASTROINTESTINAL: Abdomen soft, non-tender, nondistended. Hepatic and splenic margins not palpable. MUSCULOSKELETAL: Extremities without clubbing, cyanosis, or edema. No obvious deformities. Full range of motion of the upper and lower extremities bilaterally. 2+ pulses bilaterally. NEUROLOGICAL: Awake and alert. No obvious cranial nerve deficits. Motor grossly within normal limits. Five out of 5 muscle strength in the arms and legs. Normal speech. PSYCHIATRIC: Appropriate mood and affect; insight and judgment normal. Data Data Last Documented VS Vital Signs Date Time Temp Pulse Resp B/P (MAP) Pulse Ox O2 Delivery O2 Flow Rate FiO2 07/31/17 18:00 116 18 115/63 (80) 100 Nasal Cannula 2.00 07/31/17 15:33 97.3 Orders Orders Electrocardiogram (07/31/17 15:56) B-Type Natriuretic Peptide (07/31/17 15:56) Ckmb (Isoenzyme) Profile (07/31/17 15:56) Complete Blood Count With Diff (07/31/17 15:56) Comprehensive Metabolic Panel (07/31/17 15:56) Magnesium (Mg) (07/31/17 15:56) Prothrombin Time / Inr (Pt) (07/31/17 15:56) Act Partial Throm Time (Ptt) (07/31/17 15:56) Troponin I (07/31/17 15:56) Lipase (07/31/17 15:56) Chest, Single Ap (07/31/17 15:56) Ecg Monitoring (07/31/17 15:56) Bilateral Bp Monitoring (07/31/17 15:56) Iv Access Insert/Monitor (07/31/17 15:56) Oximetry (07/31/17 15:56) Oxygen Administration (07/31/17 15:56) Sodium Chloride 0.9% Flush (Ns Flush) (07/31/17 16:00) Metoprolol Tartrate Inj (Lopressor Inj) (07/31/17 16:30) Metoprolol Tartrate (Lopressor) (07/31/17 16:30) Ct Pulmonary Angiogram (07/31/17 ) Hydromorphone Pf Inj (Dilaudid Pf Inj) (07/31/17 17:30) Metoclopramide Inj (Reglan Inj) (07/31/17 17:30) Iohexol 350 Inj (Omnipaque 350 Inj) (07/31/17 18:13) Albuterol-Ipratropium Neb (Duoneb Neb) (07/31/17 19:00) Azithromycin Inj (Zithromax Inj) (07/31/17 19:00) Albuterol-Ipratropium Neb (Duoneb Neb) (07/31/17 19:00) Labs Laboratory Tests Test 07/31/17 16:15 White Blood Count 12.3 TH/MM3 Red Blood Count 3.69 MIL/MM3 Hemoglobin 10.9 GM/DL Hematocrit 33.2 % Mean Corpuscular Volume 90.1 FL Mean Corpuscular Hemoglobin 29.6 PG Mean Corpuscular Hemoglobin Concent 32.8 % Red Cell Distribution Width 15.5 % Platelet Count 356 TH/MM3 Mean Platelet Volume 8.8 FL Neutrophils (%) (Auto) 86.2 % Lymphocytes (%) (Auto) 7.1 % Monocytes (%) (Auto) 6.2 % Eosinophils (%) (Auto) 0.1 % Basophils (%) (Auto) 0.4 % Neutrophils # (Auto) 10.6 TH/MM3 Lymphocytes # (Auto) 0.9 TH/MM3 Monocytes # (Auto) 0.8 TH/MM3 Eosinophils # (Auto) 0.0 TH/MM3 Basophils # (Auto) 0.0 TH/MM3 CBC Comment DIFF FINAL Differential Comment Prothrombin Time 10.6 SEC Prothromb Time International Ratio 1.0 RATIO Activated Partial Thromboplast Time 22.5 SEC Blood Urea Nitrogen 14 MG/DL Creatinine 0.89 MG/DL Random Glucose 126 MG/DL Total Protein 6.7 GM/DL Albumin 2.7 GM/DL Calcium Level 8.4 MG/DL Magnesium Level 2.1 MG/DL Alkaline Phosphatase 76 U/L Aspartate Amino Transf (AST/SGOT) 15 U/L Alanine Aminotransferase (ALT/SGPT) 26 U/L Total Bilirubin 0.2 MG/DL Sodium Level 141 MEQ/L Potassium Level 4.1 MEQ/L Chloride Level 104 MEQ/L Carbon Dioxide Level 26.7 MEQ/L Anion Gap 10 MEQ/L Estimat Glomerular Filtration Rate 85 ML/MIN Total Creatine Kinase 37 U/L Troponin I LESS THAN 0.02 NG/ML B-Type Natriuretic Peptide 309 PG/ML Lipase 125 U/L MDM Medical Decision Making Medical Screen Exam Complete: Yes Emergency Medical Condition: Yes Medical Record Reviewed: Yes Interpretation(s) EKG show atrial flutter with RVR. Read by me and attending. Last Impressions Chest X-Ray 07/31/17 1556 Signed Impressions: CONCLUSION: No acute cardiopulmonary abnormality is identified. CT Angiography 07/31/17 0000 Signed Impressions: CONCLUSION: 1. No pulmonary emboli. 2. Peribronchial thickening suggesting bronchitis/bronchiolitis. 3. Subacute to chronic left anterior fourth through seventh rib fractures. 4. Prior granulomatous disease. 5. Significant coronary artery atherosclerotic calcifications. CBC & BMP Diagram 07/31/17 16:15 Total Protein 6.7, Albumin 2.7 L, Calcium Level 8.4 L, Magnesium Level 2.1, Alkaline Phosphatase 76, Aspartate Amino Transf (AST/SGOT) 15, Alanine Aminotransferase (ALT/SGPT) 26, Total Bilirubin 0.2 Troponin and CK-MB negative. Differential Diagnosis Atrial flutter versus atrial fibrillation versus chest pain versus a typical chest pain versus COPD exacerbation versus pneumonia versus postsurgical complication Narrative Course 71-year-old male the presents to the ED for evaluation of chest pain or shortness of breath. Patient was properly examined and was found to have signs and symptoms of unclear etiology at this time with deafly concerning for cardiac as well as pulmonary. Labs and imaging order. Initial EKG show atrial flutter with RVR in the 123. Case discussed with my attending Dr Ceron who recommends 2.5 mg IV of Lopressor and p.o. Lopressor as well. This was given to the patient. Patient's heart rate came down to the 110s 150s but still elevated. Patient still symptomatic. Given pain medications. Labs and imaging were done. Labs and imaging were essentially unremarkable for acute disease. He does appear to have bronchitis on CTA. Patient still very tachycardic. Patient had to be given albuterol nebulizer 1 as well as started on azithromycin and Solu-Medrol. Case discussed with my attending Dr. Ceron who recommends admission for further evaluation. Case discussed with Dr Shaw who recommends we speak with the community development specialist. Case discussed with Dr Bullard who agreed to admission and will consult cardiology. Diagnosis Primary Impression: Atrial flutter with rapid ventricular response Additional Impressions: COPD (chronic obstructive pulmonary disease) Qualified Codes: J44.1 - Chronic obstructive pulmonary disease with (acute) exacerbation Bronchitis S/P CABG (coronary artery bypass graft) Admitting Information Admitting Physician Requests: Admit Alpesh Landon Jul 31, 2017 16:14
[2017-07-31 16:27] LABS: AUTOMATED NEUTROPHIL # 10.6 TH/MM3 (1.8-7.7); BASOPHIL % 0.4 % (0.0-2.0); EOSINOPHIL % 0.1 % (0.0-4.0); HEMATOCRIT 33.2 % (39.0-51.0); HEMOGLOBIN 10.9 GM/DL (13.0-17.0); LYMPH % 7.1 % (9.0-44.0); LYMPHOCYTE # 0.9 TH/MM3 (1.0-4.8); MEAN CELL VOLUME 90.1 FL (80.0-100.0); MEAN CORPUSCULAR HEMOGLOBIN 29.6 PG (27.0-34.0); MEAN CORPUSCULAR HGB CONC 32.8 % (32.0-36.0); MEAN PLATELET VOLUME 8.8 FL (7.0-11.0); MONO % 6.2 % (0.0-8.0); MONOCYTE # 0.8 TH/MM3 (0-0.9); NEUT % 86.2 % (16.0-70.0); PLATELET COUNT 356 TH/MM3 (150-450); RED BLOOD COUNT 3.69 MIL/MM3 (4.50-5.90); RED CELL DISTRIBUTION WIDTH 15.5 % (11.6-17.2); WHITE BLOOD COUNT 12.3 TH/MM3 (4.0-11.0)
[2017-07-31] MEDS ORDERED: MAGN1CAP (16:30)
[2017-07-31] MEDS ORDERED: OMEP20TA93 PO (16:30)
[2017-07-31] MEDS ORDERED: METOPROLOL TARTRATE 5 MG/5 ML VIAL IV PUSH ONE (16:30)
[2017-07-31] MEDS ORDERED: FERR325T18 PO (16:30)
[2017-07-31] MEDS ORDERED: METOPROLOL TARTRATE 50 MG TAB PO ONE (16:30)
[2017-07-31] MEDS ORDERED: GABA100C4 PO (16:30)
--- NOTE | 2017-07-31 16:35 | RADRPT ---
EXAM DATE: 07/31/2017 4:20 PM EDT AGE/SEX: 71 years / Male INDICATIONS: Short of breath. CLINICAL DATA: This is the patient's initial encounter. Patient reports that signs and symptoms have been present for 1 day and indicates a pain score of 0/10. MEDICAL/SURGICAL HISTORY: Chronic obstructive pulmonary disease. Myocardial infarction. CABG. [place] [facility] [place] [facility] [place]. . FINDINGS: Portable AP view of the chest demonstrates a normal-sized cardiac silhouette post median sternotomy. No pleural effusion, airspace consolidation, or pneumothorax is identified. The bones and soft tissue s demonstrate no acute finding. Stable mild symmetric biapical scar is present. CONCLUSION: No acute cardiopulmonary abnormality is identified. Electronically signed by: Gui Hurst MD 07/31/2017 4:34 PM EDT
[2017-07-31 16:44] LABS: PROTHROMBIN TIME - PATIENT 10.6 SEC (9.8-11.6)
[2017-07-31 16:48] LABS: ALBUMIN 2.7 GM/DL (3.4-5.0); ALT (GPT) 26 U/L (12-78); AST (GOT) 15 U/L (15-37); BICARBONATE 26.7 MEQ/L (21.0-32.0); BLOOD UREA NITROGEN 14 MG/DL (7-18); CALCIUM 8.4 MG/DL (8.5-10.1); CHLORIDE 104 MEQ/L (98-107); CREATININE 0.89 MG/DL (0.60-1.30); GLOMERULAR FILTRATION RATE 85 ML/MIN (>89); GLUCOSE,RANDOM 126 MG/DL (74-106); MAGNESIUM 2.1 MG/DL (1.5-2.5); SODIUM (NA) 141 MEQ/L (136-145)
[2017-07-31 16:51] LABS: ALKALINE PHOSPHATASE 76 U/L (45-117); TOTAL BILIRUBIN ADULT 0.2 MG/DL (0.2-1.0); TOTAL PROTEIN 6.7 GM/DL (6.4-8.2); TROPONIN I LESS THAN 0.02 NG/ML (0.02-0.05)
[2017-07-31] MEDS ORDERED: HYDROmorphone HCL PF 0.5 MG/0.5 ML SYRINGE IV PUSH ONE (17:30)
[2017-07-31] MEDS ORDERED: METOCLOPRAMIDE HCL 10 MG/2 ML VIAL IV PUSH ONE (17:30)
[2017-07-31] MEDS ORDERED: IOHEXOL 350 MG/ML 10 ML VIAL (for RAD DIAG) IVCONTRAST ONE (18:13)
--- NOTE | 2017-07-31 18:27 | RADRPT ---
EXAM DATE: 07/31/2017 6:19 PM EDT AGE/SEX: 71 years / Male INDICATIONS: Shortness of breath. CLINICAL DATA: This is the patient's initial encounter. Patient reports that signs and symptoms have been present for 1 day and indicates a pain score of 2/10. MEDICAL/SURGICAL HISTORY: Chronic obstructive pulmonary disease. Cardiovascular disease. Rheumato id arthritis. Asthma. CABG. RADIATION DOSE: 10.32 CTDI (mGy) COMPARISON: None . TECHNIQUE: Volumetric scanning was performed using a multi-row detector CT scanner during bolus infu vinayak of 50 ml Omnipaque 350 (iohexol) nonionic water-soluble contrast as a single exam dose. The kiran a was post processed with a variety of visualization algorithms including full volume maximum intensi ty projection and sliding thin slab reformation. Using automated exposure control and adjustment of the mA and/or kV according to patient size, radiation dose was kept as low as reasonably achievable t o obtain optimal diagnostic quality images. FINDINGS: Pulmonary Arteries: No filling defects are seen in the pulmonary arteries out to the subsegmental ve ssels. The left and right pulmonary arteries are normal in diameter. Lung: Smooth peribronchial thickening is seen throughout both lungs. No bronchiectasis. No acute inf iltrate. No mass.. Effusion: None. Mediastinum: The heart is normal in size without pericardial effusion. Significant coronary artery a nd aortic atherosclerotic calcifications. Small mediastinal lymph nodes without adenopathy. Some are homogeneously calcified within the left hilum.. Other: The axilla is unremarkable. Granulomatous calcifications within the visualized portions of th e liver and spleen. Old fractures involving the costochondral junctions involving the left fourth thr ough seventh ribs. Callus formation is seen about these fractures. There are nondisplaced. A degenera tive thoracic spine. Median sternotomy wires. CONCLUSION: 1. No pulmonary emboli. 2. Peribronchial thickening suggesting bronchitis/bronchiolitis. 3. Subacute to chronic left anterior fourth through seventh rib fractures. 4. Prior granulomatous disease. 5. Significant coronary artery atherosclerotic calcifications. Electronically signed by: Guillermo Lewis MD 07/31/2017 6:25 PM EDT
--- NOTE | 2017-07-31 18:57 | PD ---
Data Data Last Documented VS Vital Signs Date Time Temp Pulse Resp B/P (MAP) Pulse Ox O2 Delivery O2 Flow Rate FiO2 07/31/17 16:20 126 18 106/74 (85) 100 Nasal Cannula 2.00 07/31/17 15:33 97.3 Orders Orders Electrocardiogram (07/31/17 15:56) B-Type Natriuretic Peptide (07/31/17 15:56) Ckmb (Isoenzyme) Profile (07/31/17 15:56) Complete Blood Count With Diff (07/31/17 15:56) Comprehensive Metabolic Panel (07/31/17 15:56) Magnesium (Mg) (07/31/17 15:56) Prothrombin Time / Inr (Pt) (07/31/17 15:56) Act Partial Throm Time (Ptt) (07/31/17 15:56) Troponin I (07/31/17 15:56) Lipase (07/31/17 15:56) Chest, Single Ap (07/31/17 15:56) Ecg Monitoring (07/31/17 15:56) Bilateral Bp Monitoring (07/31/17 15:56) Iv Access Insert/Monitor (07/31/17 15:56) Oximetry (07/31/17 15:56) Oxygen Administration (07/31/17 15:56) Sodium Chloride 0.9% Flush (Ns Flush) (07/31/17 16:00) Metoprolol Tartrate Inj (Lopressor Inj) (07/31/17 16:30) Metoprolol Tartrate (Lopressor) (07/31/17 16:30) Ct Pulmonary Angiogram (07/31/17 ) Hydromorphone Pf Inj (Dilaudid Pf Inj) (07/31/17 17:30) Metoclopramide Inj (Reglan Inj) (07/31/17 17:30) Iohexol 350 Inj (Omnipaque 350 Inj) (07/31/17 18:13) Albuterol-Ipratropium Neb (Duoneb Neb) (07/31/17 19:00) Azithromycin Inj (Zithromax Inj) (07/31/17 19:00) Albuterol-Ipratropium Neb (Duoneb Neb) (07/31/17 19:00) Labs Laboratory Tests Test 07/31/17 16:15 White Blood Count 12.3 TH/MM3 Red Blood Count 3.69 MIL/MM3 Hemoglobin 10.9 GM/DL Hematocrit 33.2 % Mean Corpuscular Volume 90.1 FL Mean Corpuscular Hemoglobin 29.6 PG Mean Corpuscular Hemoglobin Concent 32.8 % Red Cell Distribution Width 15.5 % Platelet Count 356 TH/MM3 Mean Platelet Volume 8.8 FL Neutrophils (%) (Auto) 86.2 % Lymphocytes (%) (Auto) 7.1 % Monocytes (%) (Auto) 6.2 % Eosinophils (%) (Auto) 0.1 % Basophils (%) (Auto) 0.4 % Neutrophils # (Auto) 10.6 TH/MM3 Lymphocytes # (Auto) 0.9 TH/MM3 Monocytes # (Auto) 0.8 TH/MM3 Eosinophils # (Auto) 0.0 TH/MM3 Basophils # (Auto) 0.0 TH/MM3 CBC Comment DIFF FINAL Differential Comment Prothrombin Time 10.6 SEC Prothromb Time International Ratio 1.0 RATIO Activated Partial Thromboplast Time 22.5 SEC Blood Urea Nitrogen 14 MG/DL Creatinine 0.89 MG/DL Random Glucose 126 MG/DL Total Protein 6.7 GM/DL Albumin 2.7 GM/DL Calcium Level 8.4 MG/DL Magnesium Level 2.1 MG/DL Alkaline Phosphatase 76 U/L Aspartate Amino Transf (AST/SGOT) 15 U/L Alanine Aminotransferase (ALT/SGPT) 26 U/L Total Bilirubin 0.2 MG/DL Sodium Level 141 MEQ/L Potassium Level 4.1 MEQ/L Chloride Level 104 MEQ/L Carbon Dioxide Level 26.7 MEQ/L Anion Gap 10 MEQ/L Estimat Glomerular Filtration Rate 85 ML/MIN Total Creatine Kinase 37 U/L Troponin I LESS THAN 0.02 NG/ML B-Type Natriuretic Peptide 309 PG/ML Lipase 125 U/L MDM Supervised Visit with HARRY: Yes Narrative Course I, Dr. Ceron, have reviewed the advance practice practitioner's documentation and am in agreement, met with the patient face to face, made the diagnosis, and the medical decision making was done by me. *My assessment and Findings: This patient came in for dyspnea but was found to be also in A. fib with RVR. Since we have no Cardizem available we gave him IV and oral Lopressor. There is been variable and mixed results. He will be treated for lung congestion with one nebulizer treatment as compromised as that may rev up the heart rate. Patient will require admission Edson Ceron MD Jul 31, 2017 18:57
[2017-07-31] MEDS ORDERED: RESP: ALBUTEROL 2.5 MG/IPRATROPIUM 0.5 MG NEB (SCH) INH (19:00)
[2017-07-31] MEDS ORDERED: AZITHROMYCIN INJ 500 MG in SODIUM CHLOR 0.9% 250 ML INJ 250 ML IV ONE (19:00)
[2017-07-31] MEDS ORDERED: RESP: ALBUTEROL 2.5 MG/IPRATROPIUM 0.5 MG NEB (SCH) NEB ONE (19:00)
--- NOTE | 2017-07-31 20:40 | HHI.HP ---
[facility] Service [place] [facility] Primary Care Physician Unknown Admission Diagnosis atrial flutter in RVR, COPD exacerbation, bronchitis Diagnoses: Travel History International Travel<30 Days: No Contact w/Intl Traveler <30 Da: No Traveled to Known Affected Are: No History of Present Illness 71-year-old male with a past medical history significant for atrial fibrillation , coronary artery disease status post CABG 3 3 weeks ago, rheumatoid arthritis , hyperlipidemia, COPD, rheumatoid arthritis and neuropathy presents the emergency department for evaluation of shortness of breath. The patient reports that he awoke this morning and was short of breath. He was on his way to his primary care physician's office when his shortness of breath acutely worsened. He called EMS for further evaluation. He also complains of a sharp chest pain in the middle of his chest that radiates to the right side. He denies any abdominal pain. No nausea/vomiting/diarrhea. No lateralizing signs/ symptoms. Review of Systems Except as stated in HPI: all other systems reviewed are Neg Past Family Social History Past Medical History atrial fibrillation, coronary artery disease status post CABG 3 3 weeks ago, rheumatoid arthritis, hyperlipidemia, COPD, rheumatoid arthritis and neuropathy Past Surgical History CABG 3 Cardiac catheterization with stent placement 3 Sinus surgery 3 Bilateral cataract surgery Reported Medications Reported Meds & Active Scripts Active Prednisone 10 Mg Tab 10 Mg PO DAILY Dok (Docusate Sodium) 100 Mg Cap 100 Mg PO BID Oxycodone-Acetaminophen 10-325 (Oxycodone HCl/Acetaminophen) 10 Mg-325 Mg Tablet 1 Tab PO Q4H PRN Tgt Aspirin (Aspirin) 81 Mg Chw 81 Mg PO DAILY Lisinopril 5 Mg Tab 5 Mg PO DAILY Metoprolol Tartrate 25 Mg Tab 25 Mg PO BID Lipitor (Atorvastatin Calcium) 10 Mg Tab 40 Mg PO DAILY Plavix (Clopidogrel Bisulfate) 75 Mg Tab 75 Mg PO DAILY Reported Omeprazole 20 Mg Tab 20 Mg PO DAILY Gabapentin 100 Mg Cap 100 Mg PO BID Magnesium Oxide 500 Mg Cap Ferrous Sulfate 325 Mg (65 Mg Iron) Tablet 325 Mg PO BIDPC Allergies: Coded Allergies: levofloxacin (Verified Allergy, Severe, unknown, 06/30/17) patient has a cross sensitvity to avelox morphine (Verified Allergy, Severe, UNKNOWN, 06/30/17) moxifloxacin (Verified Allergy, Severe, Anaphylaxis, 06/30/17) penicillin G (Verified Allergy, Severe, rash, 06/30/17) sulfamethoxazole (Verified Allergy, Severe, RASH, 06/30/17) trimethoprim (Verified Allergy, Severe, RASH, 06/30/17) cefuroxime (Verified Adverse Reaction, Intermediate, Rash, 06/30/17) Family History Negative for CAD/DM Social History Negative for tobacco and illicit drugs. Occasional alcohol. Physical Exam Vital Signs Vital Signs Date Time Temp Pulse Resp B/P (MAP) Pulse Ox O2 Delivery O2 Flow Rate FiO2 07/31/17 19:27 118 18 95/63 (74) 98 Nasal Cannula 2.00 07/31/17 18:00 116 18 115/63 (80) 100 Nasal Cannula 2.00 07/31/17 17:00 116 18 113/66 (82) 100 Nasal Cannula 2.00 07/31/17 16:20 126 18 106/74 (85) 100 Nasal Cannula 2.00 07/31/17 16:10 100 Nasal Cannula 2.00 07/31/17 16:10 127 17 07/31/17 15:33 97.3 115 18 106/73 (84) 99 Physical Exam GENERAL: male lying in bed SKIN: No rashes, ecchymoses or lesions. Cool and dry. HEAD: Atraumatic. Normocephalic. No temporal or scalp tenderness. EYES: Pupils equal round and reactive. Extraocular motions intact. No scleral icterus. No injection or drainage. ENT: Nose without bleeding, purulent drainage or septal hematoma. Throat without erythema, tonsillar hypertrophy or exudate. Uvula midline. Airway patent. NECK: Trachea midline. No JVD or lymphadenopathy. Supple, nontender, no meningeal signs. CARDIOVASCULAR: Tachycardic. Irregularly irregular rhythm without murmurs, gallops, or rubs. RESPIRATORY: Clear to auscultation. Breath sounds equal bilaterally. No wheezes , rales, or rhonchi. Poor air movement. GASTROINTESTINAL: Abdomen soft, non-tender, nondistended. No hepato-splenomegaly , or palpable masses. No guarding. MUSCULOSKELETAL: Extremities without clubbing, cyanosis, or edema. No joint tenderness, effusion, or edema noted. No calf tenderness. NEUROLOGICAL: Awake and alert. Cranial nerves II through XII intact. Motor and sensory grossly within normal limits. Normal speech. Laboratory Laboratory Tests Test 07/31/17 16:15 White Blood Count 12.3 Red Blood Count 3.69 Hemoglobin 10.9 Hematocrit 33.2 Mean Corpuscular Volume 90.1 Mean Corpuscular Hemoglobin 29.6 Mean Corpuscular Hemoglobin Concent 32.8 Red Cell Distribution Width 15.5 Platelet Count 356 Mean Platelet Volume 8.8 Neutrophils (%) (Auto) 86.2 Lymphocytes (%) (Auto) 7.1 Monocytes (%) (Auto) 6.2 Eosinophils (%) (Auto) 0.1 Basophils (%) (Auto) 0.4 Neutrophils # (Auto) 10.6 Lymphocytes # (Auto) 0.9 Monocytes # (Auto) 0.8 Eosinophils # (Auto) 0.0 Basophils # (Auto) 0.0 CBC Comment DIFF FINAL Differential Comment Prothrombin Time 10.6 Prothromb Time International Ratio 1.0 Activated Partial Thromboplast Time 22.5 Blood Urea Nitrogen 14 Creatinine 0.89 Random Glucose 126 Total Protein 6.7 Albumin 2.7 Calcium Level 8.4 Magnesium Level 2.1 Alkaline Phosphatase 76 Aspartate Amino Transf (AST/SGOT) 15 Alanine Aminotransferase (ALT/SGPT) 26 Total Bilirubin 0.2 Sodium Level 141 Potassium Level 4.1 Chloride Level 104 Carbon Dioxide Level 26.7 Anion Gap 10 Estimat Glomerular Filtration Rate 85 Total Creatine Kinase 37 Troponin I LESS THAN 0.02 B-Type Natriuretic Peptide 309 Lipase 125 Result Diagram: 07/31/17 1615 07/31/17 1615 Caprini VTE Risk Assessment Caprini VTE Risk Assessment: Mod/High Risk (score >= 2) Caprini Risk Assessment Model Point Value = 1 Point Value = 2 Point Value = 3 Point Value = 5 Age 41-60 Minor surgery BMI > 25 kg/m2 Swollen legs Varicose veins or History of unexplained or recurrent spontaneous Oral contraceptives or hormone replacement Sepsis (< 1 month) Serious lung disease, including pneumonia (< 1 month) Abnormal pulmonary function Acute myocardial infarction Congestive heart failure (< 1 month) History of inflammatory bowel disease Medical patient at bed rest Age 61-74 Arthroscopic surgery Major open surgery (> 45 min) Laparoscopic surgery (> 45 min) Malignancy Confined to bed (> 72 hours) Immobilizing plaster cast Central venous access Age >= 75 History of VTE Family history of VTE Factor V Leiden Prothrombin [id number] Lupus anticoagulant Anticardiolipin antibodies Elevated serum homocysteine Heparin-induced thrombocytopenia Other congenital or acquired thrombophilia Stroke (< 1 month) Elective arthroplasty Hip, pelvis, or leg fracture Acute spinal cord injury (< 1 month) Prophylaxis Regimen Total Risk Factor Score Risk Level Prophylaxis Regimen 0-1 Low Early ambulation 2 Moderate Order ONE of the following: *Sequential Compression Device (SCD) *Heparin 5000 units SQ BID 3-4 Higher Order ONE of the following medications: *Heparin 5000 units SQ TID *Enoxaparin/Lovenox 40 mg SQ daily (WT < 150 kg, CrCl > 30 mL/min) *Enoxaparin/Lovenox 30 mg SQ daily (WT < 150 kg, CrCl > 10-29 mL/min) *Enoxaparin/Lovenox 30 mg SQ BID (WT < 150 kg, CrCl > 30 mL/min) AND/OR *Sequential Compression Device (SCD) 5 or more Highest Order ONE of the following medications: *Heparin 5000 units SQ TID (Preferred with Epidurals) *Enoxaparin/Lovenox 40 mg SQ daily (WT < 150 kg, CrCl > 30 mL/min) *Enoxaparin/Lovenox 30 mg SQ daily (WT < 150 kg, CrCl > 10-29 mL/min) *Enoxaparin/Lovenox 30 mg SQ BID (WT < 150 kg, CrCl > 30 mL/min) AND *Sequential Compression Device (SCD) Assessment and Plan Assessment and Plan Assessment/plan: 1. Atrial fibrillation with rapid ventricular response EKG significant for A. fib with RVR, no ST segment elevations or depressions, personally reviewed Status post IV and p.o. metoprolol If rate remains uncontrolled, amiodarone bolus and drip Cardiology consulted, appreciate assistance 2. Coronary artery disease/status post CABG 3 Patient is status post CABG [address] Shaw Cardiothoracic surgery consulted, appreciate assistance Continue aspirin/Plavix 3. COPD Holding DuoNeb secondary to tachycardia No wheezing noticed on exam Continue home prednisone 4. Hyperlipidemia/hypertension Continue home statin Continue home medications FEN Heart healthy diet Electrolytes: Monitor and replete as needed Heparin Pastora Bullard MD Jul 31, 2017 20:40
[2017-07-31] MEDS ORDERED: NALOXONE HCL 0.4 MG/ML AMP IV PUSH PRN (20:45)
[2017-07-31] MEDS ORDERED: SODIUM CHLORIDE 0.9% FLUSH 10 ML FLUSH IV FLUSH PRN (20:45)
[2017-07-31] MEDS ORDERED: BISACODYL 10 MG SUPP RECTAL PRN (20:45)
[2017-07-31] MEDS ORDERED: SENNOSIDES 8.6 MG TAB PO PRN (20:45)
[2017-07-31] MEDS ORDERED: ACETAMINOPHEN 325 MG TAB PO PRN (20:45)
[2017-07-31] MEDS ORDERED: ONDANSETRON ODT 4 MG TAB SL PRN (20:45)
[2017-07-31] MEDS ORDERED: MAGNESIUM HYDROXIDE SUSP 30 ML CUP PO PRN (20:45)
[2017-07-31] MEDS ORDERED: LACTULOSE SYRUP 20 GM/30 ML CUP PO PRN (20:45)
[2017-07-31] MEDS: METOPROLOL TARTRATE 25 MG TAB PO SCH (21:00)
[2017-07-31] MEDS: SODIUM CHLORIDE 0.9% FLUSH 10 ML FLUSH IV FLUSH SCH (21:00)
[2017-07-31] MEDS: GABAPENTIN 100 MG CAP PO SCH (21:01)
[2017-07-31] MEDS: HEPARIN SODIUM - SQ 10,000 UNITS/ML VIAL SQ SCH (21:01)
[2017-07-31] MEDS: DOCUSATE SODIUM 50 MG/SENNA 8.6 MG TAB PO SCH (23:33)
[2017-08-01] VITALS (27 sets, daily range): BP systolic 81–116; BP diastolic 54–64; PULSE 60–126; RESP 18–20; TEMP 97.8–98.5; O2SAT 96–99
[2017-08-01 04:14] LABS: AUTOMATED NEUTROPHIL # 7.1 TH/MM3 (1.8-7.7); BASOPHIL # 0.1 TH/MM3 (0-0.2); BASOPHIL % 0.9 % (0.0-2.0); EOSINOPHIL # 0.2 TH/MM3 (0-0.4); EOSINOPHIL % 1.6 % (0.0-4.0); LYMPH % 22.1 % (9.0-44.0); LYMPHOCYTE # 2.3 TH/MM3 (1.0-4.8); MEAN CELL VOLUME 90.1 FL (80.0-100.0); MEAN CORPUSCULAR HEMOGLOBIN 29.1 PG (27.0-34.0); MEAN CORPUSCULAR HGB CONC 32.3 % (32.0-36.0); MEAN PLATELET VOLUME 8.4 FL (7.0-11.0); MONO % 7.7 % (0.0-8.0); MONOCYTE # 0.8 TH/MM3 (0-0.9); NEUT % 67.7 % (16.0-70.0); PLATELET COUNT 365 TH/MM3 (150-450); RED BLOOD COUNT 3.78 MIL/MM3 (4.50-5.90); RED CELL DISTRIBUTION WIDTH 15.7 % (11.6-17.2); WHITE BLOOD COUNT 10.5 TH/MM3 (4.0-11.0)
[2017-08-01 04:33] LABS: BICARBONATE 30.5 MEQ/L (21.0-32.0); CALCIUM 8.8 MG/DL (8.5-10.1); CREATININE 0.93 MG/DL (0.60-1.30)
[2017-08-01] MEDS: HEPARIN SODIUM - SQ 10,000 UNITS/ML VIAL SQ SCH ×3 (05:48→20:41)
[2017-08-01] MEDS: METOPROLOL TARTRATE 25 MG TAB PO SCH ×2 (08:06→20:40)
[2017-08-01] MEDS: PANTOPRAZOLE SOD 20 MG DELAYED RELEASE TAB PO SCH (08:06)
[2017-08-01] MEDS: ASPIRIN 81 MG CHEW TAB PO SCH (08:06)
[2017-08-01] MEDS: DOCUSATE SODIUM 50 MG/SENNA 8.6 MG TAB PO SCH ×2 (08:06→21:00)
[2017-08-01] MEDS: CLOPIDOGREL 75 MG TAB PO SCH (08:06)
[2017-08-01] MEDS: ATORVASTATIN 10 MG TAB PO SCH (08:08)
[2017-08-01] MEDS: SODIUM CHLORIDE 0.9% FLUSH 10 ML FLUSH IV FLUSH SCH ×2 (09:00→20:40)
[2017-08-01] MEDS ORDERED: SODIUM CHLORID 0.9% 500 ML INJ 500 ML IV ONE (09:30)
[2017-08-01] MEDS ORDERED: METOPROLOL TARTRATE 5 MG/5 ML VIAL IV PUSH ONE (09:30)
--- NOTE | 2017-08-01 09:30 | HHI.PR ---
Subjective Remarks Follow up for hypotension, Afib with RVR in a patient with recent CABG. Pt is sitting in his chair. He reports no chest pain but complains of significant shortness of breath when he ambulates even a short distance. No fever, chills. Objective Vitals Vital Signs Date Time Temp Pulse Resp B/P (MAP) Pulse Ox O2 Delivery O2 Flow Rate FiO2 08/01/17 07:38 123 08/01/17 07:38 98 Room Air 08/01/17 07:38 98.4 123 18 81/54 (63) 98 08/01/17 06:00 124 08/01/17 05:00 120 08/01/17 04:00 118 08/01/17 03:30 96 Room Air 08/01/17 03:30 98.0 119 20 97/64 (75) 96 08/01/17 03:00 118 08/01/17 02:00 118 08/01/17 01:00 118 08/01/17 00:00 116 07/31/17 23:00 97 Room Air 07/31/17 23:00 97.7 122 20 95/59 (71) 97 07/31/17 23:00 118 07/31/17 21:03 119 16 98/69 (79) 100 Room Air 07/31/17 19:27 118 18 95/63 (74) 98 Nasal Cannula 2.00 07/31/17 18:00 116 18 115/63 (80) 100 Nasal Cannula 2.00 07/31/17 17:00 116 18 113/66 (82) 100 Nasal Cannula 2.00 07/31/17 16:20 126 18 106/74 (85) 100 Nasal Cannula 2.00 07/31/17 16:10 100 Nasal Cannula 2.00 07/31/17 16:10 127 17 07/31/17 15:33 97.3 115 18 106/73 (84) 99 I/O 07/31/17 07/31/17 07/31/17 08/01/17 08/01/17 08/01/17 07:00 15:00 23:00 07:00 15:00 23:00 Intake Total 250 ml 240 ml Output Total 450 ml Balance 250 ml -210 ml Intake Oral 240 ml IV Total 250 ml Output Urine Total 450 ml # Voids 3 # Bowel Movements 0 Result Diagram: 08/01/17 0359 08/01/17 0359 Imaging Last Impressions Chest X-Ray 07/31/17 1556 Signed Impressions: CONCLUSION: No acute cardiopulmonary abnormality is identified. CT Angiography 07/31/17 0000 Signed Impressions: CONCLUSION: 1. No pulmonary emboli. 2. Peribronchial thickening suggesting bronchitis/bronchiolitis. 3. Subacute to chronic left anterior fourth through seventh rib fractures. 4. Prior granulomatous disease. 5. Significant coronary artery atherosclerotic calcifications. Objective Remarks GENERAL: Alert, Oriented x 3, NAD. SKIN: Warm and dry. Sternal incision well healed. HEAD: Normocephalic. EYES: No scleral icterus. No injection or drainage. NECK: Supple, trachea midline. No JVD or lymphadenopathy. CARDIOVASCULAR: Irreg Irreg tachycardic without murmurs, gallops, or rubs. RESPIRATORY: Breath sounds equal bilaterally. No accessory muscle use. GASTROINTESTINAL: Abdomen soft, non-tender, nondistended. MUSCULOSKELETAL: No cyanosis, or edema. BACK: Nontender without obvious deformity. No CVA tenderness. Procedures None. A/P Problem List: (1) Atrial fibrillation with RVR ICD Code: I48.91 - Unspecified atrial fibrillation (2) S/P CABG (coronary artery bypass graft) ICD Code: Z95.1 - Presence of aortocoronary bypass graft (3) Hypotension ICD Code: I95.9 - Hypotension, unspecified Assessment and Plan 71-year-old male with a past medical history significant for atrial fibrillation , coronary artery disease status post CABG 3 3 weeks ago, rheumatoid arthritis , hyperlipidemia, COPD, rheumatoid arthritis and neuropathy presents the emergency department for evaluation of shortness of breath. He was found to have Afib with RVR. Atrial fibrillation with RVR Hypotension - systolic in the low 90s. - Cardiology and CV Surgery consulted. - Heart rate in the 120-130 range. Patient has mild hypotension too - Will give a small NS bolus 500cc - Also give 5 mg of IV Metoprolol to control heart rate. Pt is already on PO Metoprolol CAD s/p CABG 3 weeks ago - continue Aspirin, Plavix, Lipitor. Full code. Heparin SQ. Ruth Castro DO Aug 01, 2017 09:30
[2017-08-01] MEDS: GABAPENTIN 100 MG CAP PO SCH ×2 (10:42→20:40)
[2017-08-01] MEDS: predniSONE 10 MG TAB PO SCH (10:42)
[2017-08-01] MEDS: LISINOPRIL 5 MG TAB PO SCH (10:45)
--- NOTE | 2017-08-01 11:41 | MB ---
cc: Susan Guevara DATE: 08/01/2017 HISTORY OF PRESENT ILLNESS: A 71-year-old male known to our service, status post coronary artery bypass graft x 3 on 07/04. The patient had a WILLETT to the LAD, saphenous vein graft to the OM1, saphenous vein graft to the PDA and right endovascular harvesting, did well postoperatively, was discharged to a rehab facility, was discharged on Saturday, felt okay on Saturday. Saturday, he started feeling short of breath, then was going to go to his primary care physician's office and then on the way to the car, he became increasingly more short of breath and developed some sharp left-sided chest pain that radiated to his right side. No nausea, vomiting, diarrhea. He was found to be in AFib with RVR. He was given IV and oral Lopressor. He was continued on his aspirin and Plavix. He was also given heparin subcutaneous. After interviewing the patient, he also had received some pain medication that helped his chest pain. Troponin was negative. His blood pressure was stable. Blood pressure was on the little bit lower side. They did start p.o. Cardizem also with the Lopressor. He did convert to normal sinus rhythm approximately 9 a.m. Currently, he is pain free. PAST MEDICAL HISTORY: Coronary artery disease, rheumatoid arthritis, hyperlipidemia, COPD. PAST SURGICAL HISTORY: Include coronary artery bypass graft x 3, cardiac catheterization with stent placement in the past, sinus surgery, bilateral cataract surgery. ALLERGIES: INCLUDE CEFUROXIME, LEVAQUIN, MORPHINE, MOXIFLOXACIN, PENICILLIN, SULFA, AND BACTRIM. HOME MEDICATIONS: Include ferrous sulfate, Plavix, Lipitor, metoprolol, lisinopril, aspirin, Percocet, gabapentin, magnesium oxide, omeprazole, prednisone. FAMILY HISTORY: Noncontributory. SOCIAL HISTORY: Occasional alcohol, no tobacco. REVIEW OF SYSTEMS: As above in the HPI. Other 12 systems is unremarkable. PHYSICAL EXAMINATION: VITAL SIGNS: Blood pressure 100/60, heart rate now 70. GENERAL: The patient is alert and oriented, in no acute distress. HEENT: Head is normocephalic, atraumatic. Pupils equal and reactive. Oral mucosa pink, moist. NECK: Supple. No JVD. CARDIOVASCULAR: Heart sounds S1, S2. Regular rate and rhythm. No audible rubs, murmurs, or gallops. LUNGS: Clear to auscultation. No wheezes, rales or rhonchi. ABDOMEN: Soft, nontender. No masses or organomegaly. EXTREMITIES: No cyanosis, clubbing or edema. SKIN: He has got a midsternal sternotomy incision, intact, well approximated. He also has an incision on his left lower leg. It is intact and well approximated. LABORATORY AND DIAGNOSTIC DATA: Lab works shows hemoglobin 11, hematocrit 34, white cell count of 10, platelet count of 365. Sodium 146, potassium 4.3, BUN 14, creatinine 0.93. INR 1.0. Chest x-ray unremarkable. He had a CTA of the chest, which showed no pulmonary emboli, peribronchial thickening suggesting some bronchitis. IMPRESSION: This is a 71-year-old male, ejection fraction of 40% by catheterization on his prior visit with status post coronary artery bypass graft x 3 on 07/04, history of paroxysmal atrial fibrillation who went back into it. His CHADS score is 2. Would continue oral medication at this time. No surgical intervention warranted. Would await cardiology input in regard to anticoagulation since he does have a history of paroxysmal atrial fibrillation. Will continue to follow. JOSEF Saravia MD JRT/MAURI , 10:36 AM , 11:39 AM
[2017-08-01] MEDS ORDERED: DILTIAZEM HCL 30 MG TAB PO SCH (12:00)
[2017-08-01] MEDS ORDERED: AMIODARONE INJ 150 MG in DEXTROSE 5% IN WATER 100ML INJ 100 ML IV ONE ×2 (13:55)
[2017-08-01] MEDS ORDERED: AMIODARONE INJ 450 MG in DEXTROSE 5% IN WATE(EXCEL) INJ 241 ML IV PRN ×2 (14:05)
[2017-08-01] MEDS ORDERED: AMIODARONE INJ 450 MG in SODIUM CHLOR 0.9% (EXCEL) INJ 241 ML IV PRN (14:30)
--- NOTE | 2017-08-01 14:35 | MB ---
cc: Edd Ruiz MD DATE: 08/01/2017 REASON FOR CONSULTATION: Shortness of breath, chest pain, atrial flutter. HISTORY OF PRESENT ILLNESS: The patient is a 71-year-old white male, followed in our office by Dr. eLanna Pires, with a history of hypertension, paroxysmal atrial flutter, coronary artery disease, status post bypass surgery last month, rheumatoid arthritis, COPD, who was doing fairly well up until yesterday when he began to experience progressively worsening shortness of breath and intermittent right-sided chest pain described as "pressure." The chest discomforts would never last more than a few minutes and had no relationship whatsoever to exertion. Today, he developed a nonproductive cough. The patient denies pleurisy, hemoptysis, angina, dizziness, syncope, near syncope, palpitations. Yesterday, he was dyspneic with very minimal exertion, only slightly improved today. The patient's oral intake has been poor ever since teeth extractions about 8 weeks ago. PAST MEDICAL HISTORY: 1. Hypertension. 2. Paroxysmal atrial flutter, diagnosed about 12/2016. 3. Hyperlipidemia. 4. Coronary artery disease, status post stent to the right coronary and of the LAD 2015, status post coronary artery bypass grafting 07/04/2017 with a left internal mammary artery to the LAD, vein graft to the obtuse marginal, vein graft to the posterior descending artery. His ejection fraction on a preoperative echo was 45%. 5. Chronic obstructive pulmonary disease. 6. Gastroesophageal reflux disease. 7. Osteoarthritis. 8. Rheumatoid arthritis. CARDIAC MEDICATIONS AT HOME: 1. Plavix 75 mg daily. 2. Lipitor 40 mg at bedtime. 3. Metoprolol tartrate 25 mg b.i.d. 4. Lisinopril 5 mg daily. 5. Aspirin 81 mg daily. ALLERGIES: LEVAQUIN, MORPHINE, MOXIFLOXACIN, PENICILLIN, SULFAMETHOXAZOLE, TRIMETHOPRIM, CEFUROXIME. FAMILY HISTORY: Noncontributory. SOCIAL HISTORY: The patient quit smoking 30 years ago. He denies alcohol abuse. REVIEW OF SYSTEMS: As in history of present illness, otherwise negative or noncontributory. He also denies headache, abdominal pain, bright red blood per rectum, melena, fevers, wheezing. PHYSICAL EXAMINATION: VITAL SIGNS: His blood pressure 112/57 with a pulse of 70, respirations 18. GENERAL: He is a well-developed, very thin white male, in no acute distress. NECK: Jugular venous pressure is normal. Carotid pulses are 2+ bilaterally and without bruits. CHEST: Reveals clear lungs jenkins. CARDIAC: He has a regular rhythm and rate without S3, S4 or murmur or rub. ABDOMEN: He has a soft, nontender abdomen. Bowel sounds are present. There is no definite hepatosplenomegaly. EXTREMITIES: Reveals no clubbing, cyanosis or edema. LABORATORY DATA: Includes potassium 4.3, BUN 14, creatinine 0.93. Negative cardiac enzymes. INR 1.0. WBC 10.5, hemoglobin 11.0, platelets 365. EKG shows atrial flutter with 2:1 AV conduction, right bundle branch block, possible left anterior fascicular block, nonspecific ST and T-wave abnormalities. IMPRESSION: Increased shortness of breath, very atypical right-sided chest pains, recurrent paroxysmal atrial flutter, in a 71-year-old white male with a history of recent bypass surgery, history of paroxysmal atrial flutter, hypertension, COPD, rheumatoid arthritis. The patient did convert this afternoon to sinus rhythm. Overall, there is no evidence for acute coronary syndrome. A CT angiogram of the chest reportedly shows no evidence for pulmonary embolism. The etiology of his dyspnea is not entirely clear. His chest x-ray is clear of infiltrates or edema. There is no definite evidence for congestive heart failure. As I recall his ejection fraction was only slightly to mildly reduced before bypass surgery. His thromboembolic risk is mildly elevated with his history of hypertension. RECOMMENDATIONS: 1. Continue his usual home cardiac medications as his blood pressures tolerate. 2. We will start intravenous amiodarone to help maintain sinus rhythm. 3. Continue daily aspirin. 4. Recheck his echo to reassess left ventricular function. MD ALEXIS Pimentel/JAQUELIN , 01:55 PM , 02:34 PM DAVION
--- NOTE | 2017-08-01 17:51 | EKG ---
Date Performed: 07/31/2017 Time Performed: 15:15:46 PTAGE: 71 years EKG: ATRIAL FLUTTER/TACHYCARDIA WITH RAPID VENTRICULAR RESPONSE S1-S2-S3 PATTERN, CONSISTENT WIT H PULMONARY DISEASE, RVH, OR NORMAL VARIANT INCOMPLETE RIGHT BUNDLE BRANCH BLOCK LEFT ANTERIOR FASCIC ULAR BLOCK ST DEVIATION AND MODERATE T-WAVE ABNORMALITY, CONSIDER ANTERIOR ISCHEMIA When compared to previous tracing, patient has developed a 2:1 Atrial flutter. The early R wave transition and right v entricular hypertrophy are New since Previous tracing. The marked anterior T wave changes and inferio r T wave changes Are new findings. Myocardial ischemia should be excluded clinically. ABNORMAL ECG PREVIOUS TRACING : 07/05/2017 08.09 DOCTOR: Radha Banda Interpretating Date/Time 08/01/2017 17:50:59
[2017-08-01] MEDS: ACETAMINOPHEN/HYDROcodone 325 MG/10 MG TAB PO PRN (22:28)
[2017-08-02] VITALS (26 sets, daily range): BP systolic 81–117; BP diastolic 50–67; PULSE 52–154; RESP 16–18; TEMP 97.6–97.9; O2SAT 97–100
[2017-08-02] MEDS: ACETAMINOPHEN/HYDROcodone 325 MG/10 MG TAB PO PRN ×4 (04:36→21:28)
[2017-08-02] MEDS: HEPARIN SODIUM - SQ 10,000 UNITS/ML VIAL SQ SCH ×3 (06:17→21:24)
--- NOTE | 2017-08-02 08:43 | PD.CARD.PN ---
Subjective Subjective Remarks Moderate dyspnea with exertion, somewhat better. Nonproductive cough improved. No CP, dizziness, nausea, palpitations. Objective Medications Item Value Date Time Amiodarone HCl 250 ml @ 33.33 mls/hr 08/01/17 1430 450 mg/Sodium .Q7H31M PRN/IV 08/02/17 0425 Chloride Atorvastatin 40 mg 08/01/17 0900 Calcium DAILY/PO 08/01/17 0808 (Lipitor) Aspirin 81 mg 08/01/17 0900 (Aspirin Chew) DAILY/PO 08/01/17 0806 Clopidogrel 75 mg 08/01/17 0900 Bisulfate DAILY/PO 08/01/17 08 (Plavix) Lisinopril 5 mg 08/01/17 0900 (Prinivil) DAILY/PO Metoprolol 25 mg 07/31/17 2100 Tartrate BID/PO 08/01/17 2040 (Lopressor) Current Medications Medications (Trade) Dose Ordered Sig/Ismael Route Start Time Stop Time Status Last Admin (NS Flush) 2 ml UNSCH PRN IVF 07/31/17 16:00 (NS Flush) 2 ml UNSCH PRN IV FLUSH 07/31/17 20:45 (NS Flush) 2 ml BID IV FLUSH 07/31/17 21:00 08/01/17 20:40 (Tylenol) 650 mg Q4H PRN PO 07/31/17 20:45 (Zofran Odt) 4 mg Q6H PRN SL 07/31/17 20:45 (Heparin Inj) 5,000 units Q8HR SQ 07/31/17 20:45 08/02/17 06:17 (Narcan Inj) 0.4 mg UNSCH PRN IV PUSH 07/31/17 20:45 (Mee-Colace) 1 tab BID PO 07/31/17 21:00 08/01/17 08:06 (Milk Of Magnesia Liq) 30 ml Q12H PRN PO 07/31/17 20:45 (Senokot) 17.2 mg Q12H PRN PO 07/31/17 20:45 (Dulcolax Supp) 10 mg DAILY PRN RECTAL 07/31/17 20:45 (Lactulose Liq) 30 ml DAILY PRN PO 07/31/17 20:45 (Aspirin Chew) 81 mg DAILY PO 08/01/17 09:00 08/01/17 08:06 (Lipitor) 40 mg DAILY PO 08/01/17 09:00 08/01/17 08:08 (Plavix) 75 mg DAILY PO 08/01/17 09:00 08/01/17 08:06 (Neurontin) 100 mg BID PO 07/31/17 21:00 08/01/17 20:40 (Prinivil) 5 mg DAILY PO 08/01/17 09:00 (Lopressor) 25 mg BID PO 07/31/17 21:00 08/01/17 20:40 (Deltasone) 10 mg DAILY PO 08/01/17 09:00 08/01/17 10:42 (Protonix) 20 mg DAILY PO 08/01/17 09:00 08/01/17 08:06 Amiodarone HCl 450 mg/Sodium Chloride 250 ml @ 33.33 mls/ hr Q7H31M PRN IV 08/01/17 14:30 08/02/17 04:25 ([place] 10-325 Mg) 1 tab Q4H PRN PO 08/01/17 22:15 08/02/17 04:36 Vital Signs / I&O Vital Signs Date Time Temp Pulse Resp B/P (MAP) Pulse Ox O2 Delivery O2 Flow Rate FiO2 08/02/17 06:12 55 08/02/17 05:15 56 08/02/17 04:29 55 08/02/17 04:28 97.8 55 101/54 (70) 100 08/02/17 04:25 55 101/54 08/02/17 03:03 54 08/02/17 02:25 52 08/02/17 01:11 65 08/02/17 00:04 61 08/01/17 23:05 98.1 62 100/55 (70) 96 08/01/17 23:04 70 08/01/17 22:00 68 08/01/17 21:29 98.5 74 116/62 (80) 98 08/01/17 21:00 60 08/01/17 20:00 66 08/01/17 19:00 72 08/01/17 18:00 74 08/01/17 17:00 74 08/01/17 16:00 74 08/01/17 16:00 97.8 80 18 98/60 (73) 99 08/01/17 16:00 99 Room Air 08/01/17 15:43 72 100/66 08/01/17 15:00 68 08/01/17 14:00 72 08/01/17 13:00 72 08/01/17 12:00 82 08/01/17 11:10 97 Room Air 08/01/17 11:10 72 08/01/17 11:10 98.4 123 18 112/57 (75) 98 08/01/17 10:00 76 08/01/17 09:47 72 08/01/17 09:00 126 I/O 08/01/17 08/01/17 08/01/17 08/02/17 08/02/17 08/02/17 07:00 15:00 23:00 07:00 15:00 23:00 Intake Total 240 ml 500 ml 1473 ml 257 ml Output Total 450 ml 800 ml 400 ml Balance -210 ml 500 ml 673 ml -143 ml Intake Oral 240 ml 850 ml 240 ml IV Total 500 ml 623 ml 17 ml Output Urine Total 450 ml 800 ml 400 ml # Voids 3 # Bowel Movements 0 1 Physical Exam GENERAL: Well developed, thin. No acute distress. HEENT: Jugular venous pressure is normal. CHEST: Lungs clear to auscultation bilaterally. Unlabored respiratory effort. CARDIAC: Regular rate and rhythm without S3, S4, or murmur. ABDOMEN: Soft, nontender, no hepatosplenomegaly. Bowel sounds present. EXTREMITIES: No clubbing, cyanosis, or edema. Assessment and Plan Problem List: (1) Paroxysmal atrial flutter ICD Codes: I48.92 - Unspecified atrial flutter Status: Acute Plan: Back in NSR. Tolerating IV Amiodarone so far. Mildly bradycardic last night though only when asleep. REC change to oral Amiodarone; OK to discharge tomorrow from cardiac standpoint on Amiodarone 400 mg qd as patient's thromboembolic risk is overall low, recommend daily baby aspirin reduce metoprolol dosing Dr. Jackson to see PRN over the weekend; patient can f/u with Dr. Pires after discharge (2) Coronary artery disease ICD Codes: I25.10 - Atherosclerotic heart disease of [place] coronary artery without angina pectoris Status: Chronic Plan: No further atypical right sided CP. No evidence for ACS. Continue daily aspirin, beta magda. (3) Hypertension ICD Codes: I10 - Essential (primary) hypertension Status: Chronic Plan: Stable. Normotensive. Code Status full code Discussed Condition With patient Problem Qualifiers (1) Coronary artery disease: Qualified Codes: I25.10 - Atherosclerotic heart disease of [place] coronary artery without angina pectoris (2) Hypertension: Qualified Codes: I10 - Essential (primary) hypertension Edd Ruiz MD Aug 02, 2017 08:43
[2017-08-02] MEDS: DOCUSATE SODIUM 50 MG/SENNA 8.6 MG TAB PO SCH ×2 (09:00→21:00)
[2017-08-02] MEDS: SODIUM CHLORIDE 0.9% FLUSH 10 ML FLUSH IV FLUSH SCH ×2 (09:00→21:00)
[2017-08-02] MEDS ORDERED: PILL SPLITTER OTHER PRN (09:15)
[2017-08-02] MEDS: AMIODARONE 200 MG TAB PO SCH (09:38)
[2017-08-02] MEDS: GABAPENTIN 100 MG CAP PO SCH ×2 (09:38→21:24)
[2017-08-02] MEDS: PANTOPRAZOLE SOD 20 MG DELAYED RELEASE TAB PO SCH (09:39)
[2017-08-02] MEDS: LISINOPRIL 5 MG TAB PO SCH (09:39)
[2017-08-02] MEDS: CLOPIDOGREL 75 MG TAB PO SCH (09:39)
[2017-08-02] MEDS: ASPIRIN 81 MG CHEW TAB PO SCH (09:39)
[2017-08-02] MEDS: predniSONE 10 MG TAB PO SCH (09:40)
[2017-08-02] MEDS: METOPROLOL TARTRATE 25 MG TAB PO SCH ×2 (09:40→21:24)
[2017-08-02] MEDS: ATORVASTATIN 10 MG TAB PO SCH (09:40)
--- NOTE | 2017-08-02 14:16 | HHI.PR ---
Subjective Remarks Follow up for hypotension, Afib with RVR in a patient with recent CABG. Patient reports feeling better today. No chest pain, shortness of breath, fever or chills. Objective Vitals Vital Signs Date Time Temp Pulse Resp B/P (MAP) Pulse Ox O2 Delivery O2 Flow Rate FiO2 08/02/17 12:00 60 08/02/17 12:00 97.6 62 16 89/63 (72) 97 08/02/17 11:00 62 08/02/17 10:13 16 08/02/17 10:00 66 08/02/17 09:00 76 08/02/17 08:00 55 08/02/17 08:00 97.9 68 18 117/59 (78) 98 08/02/17 07:00 56 08/02/17 06:12 55 08/02/17 05:15 56 08/02/17 04:29 55 08/02/17 04:28 97.8 55 101/54 (70) 100 08/02/17 04:25 55 101/54 08/02/17 03:03 54 08/02/17 02:25 52 08/02/17 01:11 65 08/02/17 00:04 61 08/01/17 23:05 98.1 62 100/55 (70) 96 08/01/17 23:04 70 08/01/17 22:00 68 08/01/17 21:29 98.5 74 116/62 (80) 98 08/01/17 21:00 60 08/01/17 20:00 66 08/01/17 19:00 72 08/01/17 18:00 74 08/01/17 17:00 74 08/01/17 16:00 74 08/01/17 16:00 97.8 80 18 98/60 (73) 99 08/01/17 16:00 99 Room Air 08/01/17 15:43 72 100/66 08/01/17 15:00 68 I/O 08/01/17 08/01/17 08/01/17 08/02/17 08/02/17 08/02/17 06:59 14:59 22:59 06:59 14:59 22:59 Intake Total 240 ml 500 ml 1473 ml 257 ml Output Total 450 ml 800 ml 400 ml Balance -210 ml 500 ml 673 ml -143 ml Intake Oral 240 ml 850 ml 240 ml IV Total 500 ml 623 ml 17 ml Output Urine Total 450 ml 800 ml 400 ml # Voids 3 # Bowel Movements 0 1 Result Diagram: 08/01/17 0359 08/01/17 0359 Imaging Last Impressions Chest X-Ray 07/31/17 1556 Signed Impressions: CONCLUSION: No acute cardiopulmonary abnormality is identified. CT Angiography 07/31/17 0000 Signed Impressions: CONCLUSION: 1. No pulmonary emboli. 2. Peribronchial thickening suggesting bronchitis/bronchiolitis. 3. Subacute to chronic left anterior fourth through seventh rib fractures. 4. Prior granulomatous disease. 5. Significant coronary artery atherosclerotic calcifications. Objective Remarks GENERAL: Alert, Oriented x 3, NAD. SKIN: Warm and dry. Sternal incision well healed. HEAD: Normocephalic. EYES: No scleral icterus. No injection or drainage. NECK: Supple, trachea midline. No JVD or lymphadenopathy. CARDIOVASCULAR: Regular rhythm and rate without murmurs, gallops, or rubs. RESPIRATORY: Breath sounds equal bilaterally. No accessory muscle use. GASTROINTESTINAL: Abdomen soft, non-tender, nondistended. MUSCULOSKELETAL: No cyanosis, or edema. BACK: Nontender without obvious deformity. No CVA tenderness. Procedures None. A/P Problem List: (1) Atrial fibrillation with RVR ICD Code: I48.91 - Unspecified atrial fibrillation (2) S/P CABG (coronary artery bypass graft) ICD Code: Z95.1 - Presence of aortocoronary bypass graft (3) Hypotension ICD Code: I95.9 - Hypotension, unspecified Assessment and Plan 71-year-old male with a past medical history significant for atrial fibrillation , coronary artery disease status post CABG 3 3 weeks ago, rheumatoid arthritis , hyperlipidemia, COPD, rheumatoid arthritis and neuropathy presents the emergency department for evaluation of shortness of breath. He was found to have Afib with RVR. Atrial fibrillation with RVR Hypotension - systolic in the low 90s. - Cardiology and CV Surgery consulted. - Cardiology recommended Aspirin daily for Afib anticoagulation due to low risk. - Amiodarone 400mg Qday and continue Beta magda - metoprolol 12.5mg BID. CAD s/p CABG 3 weeks ago - continue Aspirin, Plavix, Lipitor. Full code. Heparin SQ. Probable discharge home today with outpatient cardiology follow up. Ruth Castro DO Aug 02, 2017 2:16 pm
[2017-08-02] MEDS ORDERED: ATROPINE SULFATE 1 MG/10 ML SYRINGE ONE (15:22)
[2017-08-02] MEDS ORDERED: DIGOXIN 0.5 MG/2 ML VIAL IV PUSH ONE (22:45)
[2017-08-03] VITALS (27 sets, daily range): BP systolic 78–111; BP diastolic 51–65; PULSE 99–138; RESP 16–18; TEMP 97.8–99.4; O2SAT 97–100
[2017-08-03] MEDS: HEPARIN SODIUM - SQ 10,000 UNITS/ML VIAL SQ SCH ×3 (05:19→20:55)
[2017-08-03] MEDS: ACETAMINOPHEN/HYDROcodone 325 MG/10 MG TAB PO PRN ×5 (05:20→20:57)
[2017-08-03] MEDS: CLOPIDOGREL 75 MG TAB PO SCH (08:46)
[2017-08-03] MEDS: METOPROLOL TARTRATE 25 MG TAB PO SCH ×2 (08:46→16:05)
[2017-08-03] MEDS: PANTOPRAZOLE SOD 20 MG DELAYED RELEASE TAB PO SCH (08:46)
[2017-08-03] MEDS: AMIODARONE 200 MG TAB PO SCH (08:46)
[2017-08-03] MEDS: ATORVASTATIN 10 MG TAB PO SCH (08:46)
[2017-08-03] MEDS: ASPIRIN 81 MG CHEW TAB PO SCH (08:48)
[2017-08-03] MEDS: GABAPENTIN 100 MG CAP PO SCH ×2 (08:48→20:55)
[2017-08-03] MEDS: DOCUSATE SODIUM 50 MG/SENNA 8.6 MG TAB PO SCH ×2 (08:48→20:55)
[2017-08-03] MEDS: predniSONE 10 MG TAB PO SCH (08:48)
[2017-08-03] MEDS: LISINOPRIL 5 MG TAB PO SCH (08:49)
[2017-08-03] MEDS: SODIUM CHLORIDE 0.9% FLUSH 10 ML FLUSH IV FLUSH SCH ×2 (08:55→20:55)
[2017-08-03] MEDS ORDERED: SODIUM CHLORID 0.9% 500 ML INJ 500 ML IV ONE (11:15)
[2017-08-03] MEDS ORDERED: TAMSULOSIN HCL 0.4 MG CAP PO ONE (11:15)
--- NOTE | 2017-08-03 14:32 | HHI.PR ---
Subjective Remarks Follow up for hypotension, Afib with RVR in a patient with recent CABG. Patient is currently doing well. However, apparently he had some shaking chills last night. No fever recorded. Currently on room air. He does not feel like he is ready to go home. Objective Vitals Vital Signs Date Time Temp Pulse Resp B/P (MAP) Pulse Ox O2 Delivery O2 Flow Rate FiO2 08/03/17 13:00 103 08/03/17 12:00 108 08/03/17 11:00 111 08/03/17 11:00 98.3 99 16 85/54 (64) 100 08/03/17 10:00 113 08/03/17 09:00 114 08/03/17 08:00 112 08/03/17 07:00 98.0 102 18 94/56 (69) 99 08/03/17 07:00 110 08/03/17 06:20 112 08/03/17 05:28 98.4 109 91/60 (70) 100 08/03/17 05:06 108 08/03/17 04:24 109 08/03/17 03:27 103 08/03/17 02:41 105 08/03/17 01:44 104 08/03/17 00:18 99.4 138 99/52 (68) 97 08/03/17 00:16 103 08/02/17 23:41 110 08/02/17 22:29 20 08/02/17 22:25 154 08/02/17 21:22 125 08/02/17 20:24 111 08/02/17 20:23 97.8 107 92/50 (64) 99 08/02/17 19:00 107 08/02/17 18:00 96/67 (77) 08/02/17 18:00 104 08/02/17 17:00 108 08/02/17 16:00 97 08/02/17 16:00 97.9 97 18 81/53 (62) 99 08/02/17 15:00 98 I/O 08/02/17 08/02/17 08/02/17 08/03/17 08/03/17 08/03/17 07:00 15:00 23:00 07:00 15:00 23:00 Intake Total 257 ml 960 ml 360 ml 500 ml Output Total 400 ml 775 ml 250 ml Balance -143 ml 185 ml 110 ml 500 ml Intake Oral 240 ml 960 ml 360 ml IV Total 17 ml 500 ml Output Urine Total 400 ml 775 ml 250 ml # Bowel Movements 1 Result Diagram: 08/01/17 0359 08/01/17 0359 Imaging Last Impressions Chest X-Ray 07/31/17 1556 Signed Impressions: CONCLUSION: No acute cardiopulmonary abnormality is identified. CT Angiography 07/31/17 0000 Signed Impressions: CONCLUSION: 1. No pulmonary emboli. 2. Peribronchial thickening suggesting bronchitis/bronchiolitis. 3. Subacute to chronic left anterior fourth through seventh rib fractures. 4. Prior granulomatous disease. 5. Significant coronary artery atherosclerotic calcifications. Objective Remarks GENERAL: Alert, Oriented x 3, NAD. SKIN: Warm and dry. Sternal incision well healed. HEAD: Normocephalic. EYES: No scleral icterus. No injection or drainage. NECK: Supple, trachea midline. No JVD or lymphadenopathy. CARDIOVASCULAR: Regular rhythm and rate without murmurs, gallops, or rubs. RESPIRATORY: Breath sounds equal bilaterally. No accessory muscle use. GASTROINTESTINAL: Abdomen soft, non-tender, nondistended. MUSCULOSKELETAL: No cyanosis, or edema. BACK: Nontender without obvious deformity. No CVA tenderness. Procedures None. A/P Problem List: (1) Atrial fibrillation with RVR ICD Code: I48.91 - Unspecified atrial fibrillation (2) S/P CABG (coronary artery bypass graft) ICD Code: Z95.1 - Presence of aortocoronary bypass graft (3) Hypotension ICD Code: I95.9 - Hypotension, unspecified Assessment and Plan 71-year-old male with a past medical history significant for atrial fibrillation , coronary artery disease status post CABG 3 3 weeks ago, rheumatoid arthritis , hyperlipidemia, COPD, rheumatoid arthritis and neuropathy presents the emergency department for evaluation of shortness of breath. He was found to have Afib with RVR. Atrial fibrillation with RVR Hypotension - systolic in the mid 50s. - Cardiology and CV Surgery consulted. - Cardiology recommended Aspirin daily for Afib anticoagulation due to low risk. - Amiodarone 400mg Qday. - Increase metoprolol 12.5mg BID to Q8hrs with holding parameters. - Hold Lisinopril in light of hypotension for now. CAD s/p CABG 3 weeks ago - continue Aspirin, Plavix, Lipitor. Full code. Heparin SQ. Ahmed,Shahabuddin DO Aug 03, 2017 2:32 pm
--- NOTE | 2017-08-03 16:42 | PD.CARD.PN ---
Subjective Subjective Remarks Follow up for Dr. Ruzi Called overnight for AFib with RVR, given Digoxin IV Heart rates appear to be possible sinus tachycardia around 100-110 Objective Medications Current Medications Medications (Trade) Dose Ordered Sig/Ismael Route Start Time Stop Time Status Last Admin (NS Flush) 2 ml UNSCH PRN IV FLUSH 07/31/17 20:45 (NS Flush) 2 ml BID IV FLUSH 07/31/17 21:00 08/03/17 08:55 (Tylenol) 650 mg Q4H PRN PO 07/31/17 20:45 (Zofran Odt) 4 mg Q6H PRN SL 07/31/17 20:45 (Heparin Inj) 5,000 units Q8HR SQ 07/31/17 20:45 08/03/17 13:04 (Narcan Inj) 0.4 mg UNSCH PRN IV PUSH 07/31/17 20:45 (Mee-Colace) 1 tab BID PO 07/31/17 21:00 08/03/17 08:48 (Milk Of Magnesia Liq) 30 ml Q12H PRN PO 07/31/17 20:45 (Senokot) 17.2 mg Q12H PRN PO 07/31/17 20:45 (Dulcolax Supp) 10 mg DAILY PRN RECTAL 07/31/17 20:45 (Lactulose Liq) 30 ml DAILY PRN PO 07/31/17 20:45 (Aspirin Chew) 81 mg DAILY PO 08/01/17 09:00 08/03/17 08:48 (Plavix) 75 mg DAILY PO 08/01/17 09:00 08/03/17 08:46 (Neurontin) 100 mg BID PO 07/31/17 21:00 08/03/17 08:48 (Prinivil) 5 mg DAILY PO 08/01/17 09:00 Future Hold 08/03/17 08:49 (Deltasone) 10 mg DAILY PO 08/01/17 09:00 08/03/17 08:48 (Protonix) 20 mg DAILY PO 08/01/17 09:00 08/03/17 08:46 ([place] 10-325 Mg) 1 tab Q4H PRN PO 08/01/17 22:15 08/03/17 13:03 (Cordarone) 400 mg DAILY PO 08/02/17 09:15 08/03/17 08:46 (Pill Splitter) 1 ea UNSCH PRN OTHER 08/02/17 09:15 (Flomax) 0.4 mg DAILY PO 08/04/17 09:00 (Lopressor) 12.5 mg Q8H PO 08/03/17 17:00 (Lipitor) 40 mg DAILY PO 08/04/17 09:00 Vital Signs / I&O Vital Signs Date Time Temp Pulse Resp B/P (MAP) Pulse Ox O2 Delivery O2 Flow Rate FiO2 08/03/17 16:00 101 08/03/17 15:00 98.4 108 18 78/51 (60) 100 08/03/17 15:00 109 08/03/17 14:00 110 08/03/17 13:00 103 08/03/17 12:00 108 08/03/17 11:00 111 08/03/17 11:00 98.3 99 16 85/54 (64) 100 08/03/17 10:00 113 08/03/17 09:00 114 08/03/17 08:00 112 08/03/17 07:00 98.0 102 18 94/56 (69) 99 08/03/17 07:00 110 08/03/17 06:20 112 08/03/17 05:28 98.4 109 91/60 (70) 100 08/03/17 05:06 108 08/03/17 04:24 109 08/03/17 03:27 103 08/03/17 02:41 105 08/03/17 01:44 104 08/03/17 00:18 99.4 138 99/52 (68) 97 08/03/17 00:16 103 08/02/17 23:41 110 08/02/17 22:29 20 08/02/17 22:25 154 08/02/17 21:22 125 08/02/17 20:24 111 08/02/17 20:23 97.8 107 92/50 (64) 99 08/02/17 19:00 107 08/02/17 18:00 96/67 (77) 08/02/17 18:00 104 08/02/17 17:00 108 I/O 08/02/17 08/02/17 08/02/17 08/03/17 08/03/17 08/03/17 07:00 15:00 23:00 07:00 15:00 23:00 Intake Total 257 ml 960 ml 360 ml 500 ml Output Total 400 ml 775 ml 250 ml Balance -143 ml 185 ml 110 ml 500 ml Intake Oral 240 ml 960 ml 360 ml IV Total 17 ml 500 ml Output Urine Total 400 ml 775 ml 250 ml # Bowel Movements 1 Physical Exam GENERAL: NAD, AAOx3 SKIN: Warm and dry. HEAD: Atraumatic. Normocephalic. EYES: Pupils equal and round. No scleral icterus. No injection or drainage. ENT: No nasal bleeding or discharge. Mucous membranes pink and moist. NECK: Trachea midline. No JVD. CARDIOVASCULAR: Regular rhythm, tachycardiac. Sternotomy healed RESPIRATORY: No accessory muscle use. Clear to auscultation. Breath sounds equal bilaterally. GASTROINTESTINAL: Abdomen soft, non-tender, nondistended. Hepatic and splenic margins not palpable. MUSCULOSKELETAL: Extremities without clubbing, cyanosis, or edema. No obvious deformities. NEUROLOGICAL: Awake and alert. No obvious cranial nerve deficits. Motor grossly within normal limits. Five out of 5 muscle strength in the arms and legs. Normal speech. PSYCHIATRIC: Appropriate mood and affect; insight and judgment normal. Assessment and Plan Problem List: (1) Paroxysmal atrial flutter ICD Codes: I48.92 - Unspecified atrial flutter Status: Acute (2) Coronary artery disease ICD Codes: I25.10 - Atherosclerotic heart disease of [place] coronary artery without angina pectoris Status: Chronic (3) Hypertension ICD Codes: I10 - Essential (primary) hypertension Status: Chronic Assessment and Plan 1) AFib with RVR Now appears to be in sinus tachycardia Concern for anemia, will not plan on starting NOAC... con't ASA 2) Hypotension Most likely leading to sinus tachycardia Weights down, will give back a little bit of fluid to help with blood pressure 3) CAD s/p CABG Problem Qualifiers (1) Coronary artery disease: Qualified Codes: I25.10 - Atherosclerotic heart disease of [place] coronary artery without angina pectoris (2) Hypertension: Qualified Codes: I10 - Essential (primary) hypertension Maco Jackson DO Aug 03, 2017 16:42
[2017-08-03] MEDS ORDERED: LACTATED RINGER'S 1000 ML INJ 1,000 ML IV ONE (16:45)
[2017-08-03] MEDS: LACTATED RINGER'S 1000 ML INJ 1,000 ML IV SCH (17:10)
--- NOTE | 2017-08-03 17:22 | RADRPT ---
EXAM DATE: 08/03/2017 5:07 PM EDT AGE/SEX: 71 years / Male INDICATIONS: Shortness of breath. CLINICAL DATA: This is the patient's initial encounter. Patient reports that signs and symptoms have been present for 2 days and indicates a pain score of 0/10. MEDICAL/SURGICAL HISTORY: . Asthma. COPD. Myocardial infarction. Hypotension. CABG. Cardiac st ents. COMPARISON: [facility] – [place], CHEST SINGLE AP, 07/31/2017. . FINDINGS: A single AP view of the chest demonstrates the lungs to be symmetrically aerated without evidence of mass, infiltrate or effusion. The cardiomediastinal contours are unremarkable. Postoperative median sternotomy. Osseous structures are intact. CONCLUSION: No acute findings. Postop median sternotomy. Electronically signed by: Felice Chavez MD 08/03/2017 5:21 PM EDT
[2017-08-03 17:26] LABS: BASOPHIL % 0.2 % (0.0-2.0); EOSINOPHIL % 0.2 % (0.0-4.0); HEMATOCRIT 31.4 % (39.0-51.0); HEMOGLOBIN 10.1 GM/DL (13.0-17.0); LYMPH % 5.8 % (9.0-44.0); LYMPHOCYTE # 0.6 TH/MM3 (1.0-4.8); MEAN CELL VOLUME 91.3 FL (80.0-100.0); MEAN CORPUSCULAR HEMOGLOBIN 29.5 PG (27.0-34.0); MEAN CORPUSCULAR HGB CONC 32.3 % (32.0-36.0); MEAN PLATELET VOLUME 8.7 FL (7.0-11.0); MONO % 4.1 % (0.0-8.0); MONOCYTE # 0.5 TH/MM3 (0-0.9); NEUT % 89.7 % (16.0-70.0); PLATELET COUNT 248 TH/MM3 (150-450); RED BLOOD COUNT 3.43 MIL/MM3 (4.50-5.90); RED CELL DISTRIBUTION WIDTH 15.6 % (11.6-17.2); WHITE BLOOD COUNT 11.1 TH/MM3 (4.0-11.0)
[2017-08-03 17:45] LABS: BICARBONATE 24.7 MEQ/L (21.0-32.0); CREATININE 1.01 MG/DL (0.60-1.30)
--- NOTE | 2017-08-03 21:49 | ECHRPT ---
CONCLUSIONS The left ventricular systolic function is moderately reduced with an estimated ejection fraction in the range of 40-45%. Normal left ventricular size. Wall thickness is normal. The right atrial size is [id number] dilated. Mitral annular calcification is present. Aortic valve sclerosis is present. Mild aortic valve regurgitation. There is mild tricuspid valve regurgitation. The estimated pulmonary arterial pressure is 25.1 mmHg. BP: / HR: Rhythm: MEASUREMENTS (Male / Female) Normal Values Technical Quality:Fair 2D ECHO LV Diastolic Diameter PLAX 4.7 cm 4.2 - 5.9 / 3.9 - 5.3 cm LV Systolic Diameter PLAX 4.1 cm IVS Diastolic Thickness 0.8 cm 0.6 - 1.0 / 0.6 - 0.9 cm LVPW Diastolic Thickness 0.9 cm 0.6 - 1.0 / 0.6 - 0.9 cm LV Relative Wall Thickness 0.4 RV Internal Dim ED PLAX 3.5 cm LVOT Diameter 2.4 cm LA Systolic Diameter LX 2.7 cm 3.0 - 4.0 / 2.7 - 3.8 cm M-MODE Aortic Root Diameter MM 3.5 cm LA Systolic Diameter MM 3.2 cm LA Ao Ratio MM 0.9 AV Cusp Separation MM 1.6 cm DOPPLER AV Peak Velocity 136.0 cm/s AV Peak Gradient 7.4 mmHg AI Peak Velocity 315.5 cm/s AI Peak Gradient 39.8 mmHg AI Pressure Half Time 276.5 ms LVOT Peak Velocity 81.4 cm/s LVOT Peak Gradient 2.7 mmHg AV Area Cont Eq pk 2.7 cm MV Area PHT 7.6 cm Mitral E Point Velocity 90.6 cm/s Mitral A Point Velocity 65.6 cm/s Mitral E to A Ratio 1.4 LV E' Lateral Velocity 3.5 cm/s Mitral E to LV E' Lateral Ratio 25.8 LV E' Septal Velocity 6.5 cm/s Mitral E to LV E' Septal Ratio 13.9 TR Peak Velocity 194.0 cm/s TR Peak Gradient 15.1 mmHg Right Atrial Pressure 10.0 mmHg Pulmonary Artery Systolic Pressu 25.1 mmHg Right Ventricular Systolic Press 25.1 mmHg FINDINGS LEFT VENTRICLE The left ventricular systolic function is moderately reduced with an estimated ejection fraction in the range of 40-45%. Normal left ventricular size. Wall thickness is normal. RIGHT VENTRICLE Normal right ventricular size and systolic function. LEFT ATRIUM The left atrial size is normal. RIGHT ATRIUM The right atrial size is [id number] dilated. ATRIAL SEPTUM Normal atrial septal thickness without atrial level shunting by limited color doppler interrogation. AORTA The aortic root and proximal ascending aorta are normal in size on limited imaging. MITRAL VALVE Mitral annular calcification is present. AORTIC VALVE Aortic valve sclerosis is present. Mild aortic valve regurgitation. TRICUSPID VALVE Structurally normal tricuspid valve. There is mild tricuspid valve regurgitation. The estimated pulmonary arterial pressure is 25.1 mmHg. PULMONARY VALVE No pulmonary valve regurgitation or stenosis. VESSELS The inferior vena cava is normal in size. PERICARDIUM No pericardial effusion. Jared Plata MD, FACC, FSCAI (Electronically Signed) Final Date:03 August 2017 21:48
[2017-08-04] VITALS (26 sets, daily range): BP systolic 82–123; BP diastolic 53–70; PULSE 73–113; RESP 16–20; TEMP 97.6–98; O2SAT 97–100
[2017-08-04] MEDS: ACETAMINOPHEN/HYDROcodone 325 MG/10 MG TAB PO PRN ×5 (02:12→18:09)
[2017-08-04] MEDS: LACTATED RINGER'S 1000 ML INJ 1,000 ML IV SCH ×4 (02:13→21:58)
[2017-08-04] MEDS: METOPROLOL TARTRATE 25 MG TAB PO SCH ×3 (02:13→16:03)
[2017-08-04] MEDS: HEPARIN SODIUM - SQ 10,000 UNITS/ML VIAL SQ SCH ×3 (05:38→21:07)
[2017-08-04] MEDS: CLOPIDOGREL 75 MG TAB PO SCH (09:08)
[2017-08-04] MEDS: ATORVASTATIN 40 MG TAB PO SCH (09:08)
[2017-08-04] MEDS: DOCUSATE SODIUM 50 MG/SENNA 8.6 MG TAB PO SCH ×2 (09:09→21:07)
[2017-08-04] MEDS: GABAPENTIN 100 MG CAP PO SCH ×2 (09:09→21:07)
[2017-08-04] MEDS: predniSONE 10 MG TAB PO SCH (09:09)
[2017-08-04] MEDS: TAMSULOSIN HCL 0.4 MG CAP PO SCH (09:09)
[2017-08-04] MEDS: PANTOPRAZOLE SOD 20 MG DELAYED RELEASE TAB PO SCH (09:09)
[2017-08-04] MEDS: AMIODARONE 200 MG TAB PO SCH (09:09)
[2017-08-04] MEDS: SODIUM CHLORIDE 0.9% FLUSH 10 ML FLUSH IV FLUSH SCH ×2 (09:09→21:07)
[2017-08-04] MEDS: ASPIRIN 81 MG CHEW TAB PO SCH (09:09)
--- NOTE | 2017-08-04 11:51 | PD.CARD.PN ---
Subjective Subjective Remarks Follow up for Dr. Ruiz Telemetry now with AFlutter, heart rates 80s Objective Medications Current Medications Medications (Trade) Dose Ordered Sig/Ismael Route Start Time Stop Time Status Last Admin (NS Flush) 2 ml UNSCH PRN IV FLUSH 07/31/17 20:45 (NS Flush) 2 ml BID IV FLUSH 07/31/17 21:00 08/04/17 09:09 (Tylenol) 650 mg Q4H PRN PO 07/31/17 20:45 (Zofran Odt) 4 mg Q6H PRN SL 07/31/17 20:45 (Heparin Inj) 5,000 units Q8HR SQ 07/31/17 20:45 08/04/17 05:38 (Narcan Inj) 0.4 mg UNSCH PRN IV PUSH 07/31/17 20:45 (Mee-Colace) 1 tab BID PO 07/31/17 21:00 08/04/17 09:09 (Milk Of Magnesia Liq) 30 ml Q12H PRN PO 07/31/17 20:45 (Senokot) 17.2 mg Q12H PRN PO 07/31/17 20:45 (Dulcolax Supp) 10 mg DAILY PRN RECTAL 07/31/17 20:45 (Lactulose Liq) 30 ml DAILY PRN PO 07/31/17 20:45 (Aspirin Chew) 81 mg DAILY PO 08/01/17 09:00 08/04/17 09:09 (Plavix) 75 mg DAILY PO 08/01/17 09:00 08/04/17 09:08 (Neurontin) 100 mg BID PO 07/31/17 21:00 08/04/17 09:09 (Prinivil) 5 mg DAILY PO 08/01/17 09:00 Future Hold 08/03/17 08:49 (Deltasone) 10 mg DAILY PO 08/01/17 09:00 08/04/17 09:09 (Protonix) 20 mg DAILY PO 08/01/17 09:00 08/04/17 09:09 ([place] 10-325 Mg) 1 tab Q4H PRN PO 08/01/17 22:15 08/04/17 10:05 (Cordarone) 400 mg DAILY PO 08/02/17 09:15 6/10/18 09:09 (Pill Splitter) 1 ea UNSCH PRN OTHER 08/02/17 09:15 (Flomax) 0.4 mg DAILY PO 08/04/17 09:00 08/04/17 09:09 (Lopressor) 12.5 mg Q8H PO 08/03/17 17:00 08/04/17 02:13 (Lipitor) 40 mg DAILY PO 08/04/17 09:00 08/04/17 09:08 Lactated Ringer's 1,000 ml @ 125 mls/hr Q8H IV 08/03/17 16:45 08/04/17 09:10 Vital Signs / I&O Vital Signs Date Time Temp Pulse Resp B/P (MAP) Pulse Ox O2 Delivery O2 Flow Rate FiO2 08/04/17 11:30 97.6 78 16 123/65 (84) 100 08/04/17 11:00 74 08/04/17 10:00 111 08/04/17 09:00 85 08/04/17 08:00 112 08/04/17 07:32 97.6 103 16 113/59 (77) 100 08/04/17 07:00 76 08/04/17 06:00 76 08/04/17 05:00 73 08/04/17 05:00 98.0 109 16 82/53 (63) 98 08/04/17 04:00 108 08/04/17 03:00 106 08/04/17 02:00 106 08/04/17 01:00 106 08/04/17 00:00 97.8 102 18 101/64 (76) 100 08/04/17 00:00 104 08/03/17 23:00 102 08/03/17 22:00 102 08/03/17 21:00 106 08/03/17 20:00 108 08/03/17 20:00 97.8 108 16 92/56 (68) 100 08/03/17 19:00 106 08/03/17 18:00 104 08/03/17 17:25 111/65 (80) 08/03/17 17:00 108 08/03/17 16:00 101 08/03/17 15:00 98.4 108 18 78/51 (60) 100 08/03/17 15:00 109 08/03/17 14:00 110 08/03/17 13:00 103 08/03/17 12:00 108 I/O 08/03/17 08/03/17 08/03/17 08/04/17 08/04/17 08/04/17 07:00 15:00 23:00 07:00 15:00 23:00 Intake Total 360 ml 500 ml 1671 ml 1260 ml Output Total 250 ml 300 ml 650 ml Balance 110 ml 500 ml 1371 ml 610 ml Intake Oral 360 ml 671 ml 360 ml IV Total 500 ml 1000 ml 900 ml Output Urine Total 250 ml 300 ml 650 ml # Bowel Movements 0 Physical Exam GENERAL: NAD, AAOx3 SKIN: Warm and dry. HEAD: Atraumatic. Normocephalic. EYES: Pupils equal and round. No scleral icterus. No injection or drainage. ENT: No nasal bleeding or discharge. Mucous membranes pink and moist. NECK: Trachea midline. No JVD. CARDIOVASCULAR: Regular rhythm, tachycardiac. Sternotomy healed RESPIRATORY: No accessory muscle use. Clear to auscultation. Breath sounds equal bilaterally. GASTROINTESTINAL: Abdomen soft, non-tender, nondistended. Hepatic and splenic margins not palpable. MUSCULOSKELETAL: Extremities without clubbing, cyanosis, or edema. No obvious deformities. NEUROLOGICAL: Awake and alert. No obvious cranial nerve deficits. Motor grossly within normal limits. Five out of 5 muscle strength in the arms and legs. Normal speech. PSYCHIATRIC: Appropriate mood and affect; insight and judgment normal. Laboratory Laboratory Tests Test 08/03/17 17:10 White Blood Count 11.1 TH/MM3 Red Blood Count 3.43 MIL/MM3 Hemoglobin 10.1 GM/DL Hematocrit 31.4 % Mean Corpuscular Volume 91.3 FL Mean Corpuscular Hemoglobin 29.5 PG Mean Corpuscular Hemoglobin Concent 32.3 % Red Cell Distribution Width 15.6 % Platelet Count 248 TH/MM3 Mean Platelet Volume 8.7 FL Neutrophils (%) (Auto) 89.7 % Lymphocytes (%) (Auto) 5.8 % Monocytes (%) (Auto) 4.1 % Eosinophils (%) (Auto) 0.2 % Basophils (%) (Auto) 0.2 % Neutrophils # (Auto) 10.0 TH/MM3 Lymphocytes # (Auto) 0.6 TH/MM3 Monocytes # (Auto) 0.5 TH/MM3 Eosinophils # (Auto) 0.0 TH/MM3 Basophils # (Auto) 0.0 TH/MM3 CBC Comment DIFF FINAL Differential Comment Blood Urea Nitrogen 22 MG/DL Creatinine 1.01 MG/DL Random Glucose 104 MG/DL Calcium Level 8.0 MG/DL Sodium Level 140 MEQ/L Potassium Level 4.3 MEQ/L Chloride Level 105 MEQ/L Carbon Dioxide Level 24.7 MEQ/L Anion Gap 10 MEQ/L Estimat Glomerular Filtration Rate 73 ML/MIN Lactic Acid Level 1.9 mmol/L Assessment and Plan Problem List: (1) Paroxysmal atrial flutter ICD Codes: I48.92 - Unspecified atrial flutter Status: Acute (2) Coronary artery disease ICD Codes: I25.10 - Atherosclerotic heart disease of [place] coronary artery without angina pectoris Status: Chronic (3) Hypertension ICD Codes: I10 - Essential (primary) hypertension Status: Chronic Assessment and Plan 1) AFib with RVR Now appears to be in Aflutter with variable block Rates better after fluids Concern for anemia, will not plan on starting NOAC... con't ASA 2) Hypotension Most likely leading to tachycardia Better after fluids given 3) CAD s/p CABG 4) Will see PRN Please call with any questions or concerns Problem Qualifiers (1) Coronary artery disease: Qualified Codes: I25.10 - Atherosclerotic heart disease of [place] coronary artery without angina pectoris (2) Hypertension: Qualified Codes: I10 - Essential (primary) hypertension Maco Jackson DO Aug 04, 2017 11:51
--- NOTE | 2017-08-04 23:44 | HHI.PR ---
Subjective Remarks Follow up for hypotension, Afib with RVR in a patient with recent CABG. Patient says he is feeling like 'garbage' - feels weak and lack of energy. His heart rate is well controlled, BP is improved. No CP, SOB, fever, chills. He is currently on room air. Objective Vitals Vital Signs Date Time Temp Pulse Resp B/P (MAP) Pulse Ox O2 Delivery O2 Flow Rate FiO2 08/04/17 22:00 111 08/04/17 20:00 110 08/04/17 19:00 97.8 113 20 95/70 (78) 97 08/04/17 19:00 113 08/04/17 18:00 110 08/04/17 17:00 109 08/04/17 16:00 109 08/04/17 15:14 97.8 105 16 99/63 (75) 99 08/04/17 15:00 108 08/04/17 14:00 110 08/04/17 13:00 112 08/04/17 12:00 113 08/04/17 11:30 97.6 78 16 123/65 (84) 100 08/04/17 11:00 74 08/04/17 10:00 111 08/04/17 09:00 85 08/04/17 08:00 112 08/04/17 07:32 97.6 103 16 113/59 (77) 100 08/04/17 07:00 76 08/04/17 06:00 76 08/04/17 05:00 73 08/04/17 05:00 98.0 109 16 82/53 (63) 98 08/04/17 04:00 108 08/04/17 03:00 106 08/04/17 02:00 106 08/04/17 01:00 106 08/04/17 00:00 97.8 102 18 101/64 (76) 100 08/04/17 00:00 104 I/O 08/04/17 08/04/17 08/04/17 08/05/17 08/05/17 08/05/17 07:00 15:00 23:00 07:00 15:00 23:00 Intake Total 1260 ml 2763 ml Output Total 650 ml 1200 ml Balance 610 ml 1563 ml Intake Oral 360 ml 960 ml IV Total 900 ml 1803 ml Output Urine Total 650 ml 1200 ml # Bowel Movements 0 1 Result Diagram: 08/03/17 1710 08/03/17 1710 Imaging Last Impressions Chest X-Ray 08/03/17 0000 Signed Impressions: CONCLUSION: No acute findings. Postop median sternotomy. CT Angiography 07/31/17 0000 Signed Impressions: CONCLUSION: 1. No pulmonary emboli. 2. Peribronchial thickening suggesting bronchitis/bronchiolitis. 3. Subacute to chronic left anterior fourth through seventh rib fractures. 4. Prior granulomatous disease. 5. Significant coronary artery atherosclerotic calcifications. Objective Remarks GENERAL: Alert, Oriented x 3, NAD. SKIN: Warm and dry. Sternal incision well healed. HEAD: Normocephalic. EYES: No scleral icterus. No injection or drainage. NECK: Supple, trachea midline. No JVD or lymphadenopathy. CARDIOVASCULAR: Regular rhythm and rate without murmurs, gallops, or rubs. RESPIRATORY: Breath sounds equal bilaterally. No accessory muscle use. GASTROINTESTINAL: Abdomen soft, non-tender, nondistended. MUSCULOSKELETAL: No cyanosis, or edema. BACK: Nontender without obvious deformity. No CVA tenderness. Procedures None. A/P Problem List: (1) Atrial fibrillation with RVR ICD Code: I48.91 - Unspecified atrial fibrillation (2) S/P CABG (coronary artery bypass graft) ICD Code: Z95.1 - Presence of aortocoronary bypass graft (3) Hypotension ICD Code: I95.9 - Hypotension, unspecified Assessment and Plan 71-year-old male with a past medical history significant for atrial fibrillation , coronary artery disease status post CABG 3 3 weeks ago, rheumatoid arthritis , hyperlipidemia, COPD, rheumatoid arthritis and neuropathy presents the emergency department for evaluation of shortness of breath. He was found to have Afib with RVR. Atrial fibrillation with RVR Hypotension - currently resolved. Will continue IV fluid today. Probably d/c IV fluid in the AM. - Cardiology and CV Surgery consulted. - Cardiology recommended Aspirin daily for Afib anticoagulation due to low risk. - Amiodarone 400mg Qday. - Increased metoprolol 12.5mg BID to Q8hrs with holding parameters. CAD s/p CABG 3 weeks ago - continue Aspirin, Plavix, Lipitor. Full code. Heparin SQ. Patient will likely go home tomorrow with home health. Ruth Castro DO Aug 04, 2017 23:44
[2017-08-05] VITALS (22 sets, daily range): BP systolic 89–126; BP diastolic 55–81; PULSE 80–119; RESP 16–20; TEMP 97.7–98.3; O2SAT 98–100
[2017-08-05] MEDS: METOPROLOL TARTRATE 25 MG TAB PO SCH ×3 (00:16→16:21)
[2017-08-05] MEDS: ACETAMINOPHEN/HYDROcodone 325 MG/10 MG TAB PO PRN ×4 (02:32→20:17)
[2017-08-05] MEDS: HEPARIN SODIUM - SQ 10,000 UNITS/ML VIAL SQ SCH ×3 (05:39→20:22)
[2017-08-05] MEDS ORDERED: METO25TA3 PO ×2 (09:13→11:22)
[2017-08-05] MEDS ORDERED: AMIO200T PO (09:13)
[2017-08-05] MEDS ORDERED: TAMS5CAP PO (09:13)
--- NOTE | 2017-08-05 09:16 | HHI.FF ---
Face to Face Verification Diagnosis: (1) Hypotension (2) Atrial flutter with rapid ventricular response (3) Coronary artery disease (4) S/P CABG (coronary artery bypass graft) Physical Therapy Order: Evaluate and Treat, Improve ambulation, Strength and gait training Home Health Nursing Order: Medical education Signs/symptoms of disease process Nursing assessment with vital signs I have seen patient Gui Dove on 08/05/17. My clinical findings support the need for the requested home health care services because: Ltd mobility - disease progression Patient has SOB Deconditioned w/ increased weakness Limited ability to care for self Need for psychosocial assistance High risk of falls Infection w/ risk of complications I certify that my clinical findings support that this patient is homebound because: Post-op weakness Unsafe to leave home unassisted Unable to use public transportation Poor cardiac reserve Ruth Castro DO Aug 05, 2017 9:16 am
[2017-08-05] MEDS: PANTOPRAZOLE SOD 20 MG DELAYED RELEASE TAB PO SCH (09:40)
[2017-08-05] MEDS: GABAPENTIN 100 MG CAP PO SCH ×2 (09:41→20:17)
[2017-08-05] MEDS: ATORVASTATIN 40 MG TAB PO SCH (09:41)
[2017-08-05] MEDS: predniSONE 10 MG TAB PO SCH (09:41)
[2017-08-05] MEDS: TAMSULOSIN HCL 0.4 MG CAP PO SCH (09:42)
[2017-08-05] MEDS: DOCUSATE SODIUM 50 MG/SENNA 8.6 MG TAB PO SCH (09:43)
[2017-08-05] MEDS: CLOPIDOGREL 75 MG TAB PO SCH (09:43)
[2017-08-05] MEDS: ASPIRIN 81 MG CHEW TAB PO SCH (09:45)
[2017-08-05] MEDS: LACTATED RINGER'S 1000 ML INJ 1,000 ML IV SCH ×2 (09:46→17:42)
[2017-08-05] MEDS: AMIODARONE 200 MG TAB PO SCH (09:46)
[2017-08-05] MEDS: SODIUM CHLORIDE 0.9% FLUSH 10 ML FLUSH IV FLUSH SCH ×2 (09:46→20:22)
--- NOTE | 2017-08-05 14:23 | HHI.PR ---
Subjective Remarks Follow up for hypotension, Afib with RVR in a patient with recent CABG. Patient is currently sitting in his chair. Somewhat hypotensive earlier in the morning. He feels that he is not ready to go home. He lives alone. He would like to go home tomorrow. Objective Vitals Vital Signs Date Time Temp Pulse Resp B/P (MAP) Pulse Ox O2 Delivery O2 Flow Rate FiO2 08/05/17 14:00 119 08/05/17 13:00 99 08/05/17 12:00 107 08/05/17 11:00 95 08/05/17 11:00 98.1 95 18 111/59 (76) 98 08/05/17 10:00 90 08/05/17 09:00 108 08/05/17 08:00 98.0 115 17 92/55 (67) 99 08/05/17 08:00 115 08/05/17 07:00 84 08/05/17 06:00 80 08/05/17 05:00 90 08/05/17 03:00 90 08/05/17 03:00 97.7 90 20 116/73 (87) 100 08/05/17 01:00 109 08/05/17 00:00 108 08/05/17 00:00 109 08/04/17 23:00 97.7 108 20 113/70 (84) 98 08/04/17 22:00 111 08/04/17 20:00 110 08/04/17 19:00 97.8 113 20 95/70 (78) 97 08/04/17 19:00 113 08/04/17 18:00 110 08/04/17 17:00 109 08/04/17 16:00 109 08/04/17 15:14 97.8 105 16 99/63 (75) 99 08/04/17 15:00 108 I/O 08/04/17 08/04/17 08/04/17 08/05/17 08/05/17 08/05/17 07:00 15:00 23:00 07:00 15:00 23:00 Intake Total 1260 ml 2763 ml 480 ml Output Total 650 ml 1200 ml 1425 ml Balance 610 ml 1563 ml -945 ml Intake Oral 360 ml 960 ml 480 ml IV Total 900 ml 1803 ml Output Urine Total 650 ml 1200 ml 1425 ml # Bowel Movements 0 1 0 Result Diagram: 08/03/17 17108/03/17 171 Objective Remarks GENERAL: Alert, Oriented x 3, NAD. SKIN: Warm and dry. Sternal incision well healed. HEAD: Normocephalic. EYES: No scleral icterus. No injection or drainage. NECK: Supple, trachea midline. No JVD or lymphadenopathy. CARDIOVASCULAR: Regular rhythm and rate without murmurs, gallops, or rubs. RESPIRATORY: Breath sounds equal bilaterally. No accessory muscle use. GASTROINTESTINAL: Abdomen soft, non-tender, nondistended. MUSCULOSKELETAL: No cyanosis, or edema. BACK: Nontender without obvious deformity. No CVA tenderness. Procedures None. A/P Problem List: (1) Atrial fibrillation with RVR ICD Code: I48.91 - Unspecified atrial fibrillation (2) S/P CABG (coronary artery bypass graft) ICD Code: Z95.1 - Presence of aortocoronary bypass graft (3) Hypotension ICD Code: I95.9 - Hypotension, unspecified Assessment and Plan 71-year-old male with a past medical history significant for atrial fibrillation , coronary artery disease status post CABG 3 3 weeks ago, rheumatoid arthritis , hyperlipidemia, COPD, rheumatoid arthritis and neuropathy presents the emergency department for evaluation of shortness of breath. He was found to have Afib with RVR. Atrial fibrillation with RVR Hypotension - BP was low again - MAP 67. We will give some hydration today. - If BP remains in the reasonable range, fluid can be discontinued. - Cardiology and CV Surgery consulted. - Cardiology recommended Aspirin daily for Afib anticoagulation due to low risk. - Amiodarone 400mg Qday. - Increased metoprolol 12.5mg BID to Q8hrs with holding parameters. CAD s/p CABG 3 weeks ago - continue Aspirin, Plavix, Lipitor. Full code. Heparin SQ. Patient will likely go home tomorrow with home health. Ruth Castro DO Aug 05, 2017 14:23
[2017-08-06] VITALS (24 sets, daily range): BP systolic 85–115; BP diastolic 55–74; PULSE 74–122; RESP 14–20; TEMP 97.8–98.7; O2SAT 97–99
[2017-08-06] MEDS: METOPROLOL TARTRATE 25 MG TAB PO SCH ×4 (00:10→23:53)
[2017-08-06] MEDS: ACETAMINOPHEN/HYDROcodone 325 MG/10 MG TAB PO PRN ×4 (00:15→21:00)
[2017-08-06] MEDS: LACTATED RINGER'S 1000 ML INJ 1,000 ML IV SCH ×2 (02:39→08:45)
[2017-08-06] MEDS: HEPARIN SODIUM - SQ 10,000 UNITS/ML VIAL SQ SCH ×3 (05:37→21:00)
[2017-08-06] MEDS: GABAPENTIN 100 MG CAP PO SCH ×2 (09:21→21:00)
[2017-08-06] MEDS: PANTOPRAZOLE SOD 20 MG DELAYED RELEASE TAB PO SCH (09:21)
[2017-08-06] MEDS: AMIODARONE 200 MG TAB PO SCH (09:21)
[2017-08-06] MEDS: CLOPIDOGREL 75 MG TAB PO SCH (09:21)
[2017-08-06] MEDS: predniSONE 10 MG TAB PO SCH (09:21)
[2017-08-06] MEDS: TAMSULOSIN HCL 0.4 MG CAP PO SCH (09:21)
[2017-08-06] MEDS: ATORVASTATIN 40 MG TAB PO SCH (09:22)
[2017-08-06] MEDS: ASPIRIN 81 MG CHEW TAB PO SCH (09:22)
[2017-08-06] MEDS: SODIUM CHLORIDE 0.9% FLUSH 10 ML FLUSH IV FLUSH SCH ×2 (09:23→20:59)
[2017-08-06] MEDS ORDERED: AMIODARONE INJ 150 MG in DEXTROSE 5% IN WATER 100ML INJ 100 ML IV ONE ×2 (13:52)
--- NOTE | 2017-08-06 14:25 | PD.CARD.PN ---
Subjective Subjective Remarks Dyspnea persists, overall gradually improving. No angina, dizziness, palpitations. Appetite poor. Objective Medications Item Value Date Time Amiodarone HCl 250 ml @ 33.33 mls/hr 08/06/17 1402 450 mg/Sodium .Q7H31M PRN/IV Chloride Atorvastatin 40 mg 08/04/17 0900 Calcium DAILY/PO 08/06/17 0922 (Lipitor) Metoprolol 12.5 mg 08/03/17 1700 Tartrate Q8H/PO (Lopressor) Aspirin 81 mg 08/01/17 0900 (Aspirin Chew) DAILY/PO 08/06/17921 Clopidogrel 75 mg 08/01/17 09 Bisulfate DAILY/PO 08/06/17920 (Plavix) Current Medications Medications (Trade) Dose Ordered Sig/Ismael Route Start Time Stop Time Status Last Admin (NS Flush) 2 ml UNSCH PRN IV FLUSH 07/31/17 20:45 (NS Flush) 2 ml BID IV FLUSH 07/31/17 21:00 08/04/17 21:07 (Tylenol) 650 mg Q4H PRN PO 07/31/17 20:45 (Zofran Odt) 4 mg Q6H PRN SL 07/31/17 20:45 (Heparin Inj) 5,000 units Q8HR SQ 07/31/17 20:45 08/06/17 13:32 (Narcan Inj) 0.4 mg UNSCH PRN IV PUSH 07/31/17 20:45 (Milk Of Magnesia Liq) 30 ml Q12H PRN PO 07/31/17 20:45 (Senokot) 17.2 mg Q12H PRN PO 07/31/17 20:45 (Dulcolax Supp) 10 mg DAILY PRN RECTAL 07/31/17 20:45 (Lactulose Liq) 30 ml DAILY PRN PO 07/31/17 20:45 (Aspirin Chew) 81 mg DAILY PO 08/01/17 09:00 08/06/17 09:22 (Plavix) 75 mg DAILY PO 08/01/17 09:00 08/06/17 09:21 (Neurontin) 100 mg BID PO 07/31/17 21:00 08/06/17 09:21 (Prinivil) 5 mg DAILY PO 6/7/18 09:00 Future Hold 08/03/17 08:49 (Deltasone) 10 mg DAILY PO 08/01/17 09:00 08/06/17 09:21 (Protonix) 20 mg DAILY PO 08/01/17 09:00 08/06/17 09:21 ([place] 10-325 Mg) 1 tab Q4H PRN PO 08/01/17 22:15 08/06/17 09:22 (Cordarone) 400 mg DAILY PO 08/02/17 09:15 Future Hold 08/06/17 09:21 (Pill Splitter) 1 ea UNSCH PRN OTHER 08/02/17 09:15 (Flomax) 0.4 mg DAILY PO 08/04/17 09:00 08/06/17 09:21 (Lopressor) 12.5 mg Q8H PO 08/03/17 17:00 08/06/17 00:10 (Lipitor) 40 mg DAILY PO 08/04/17 09:00 08/06/17 09:22 Amiodarone HCl 450 mg/Sodium Chloride 250 ml @ 33.33 mls/ hr Q7H31M PRN IV 08/06/17 14:02 Vital Signs / I&O Vital Signs Date Time Temp Pulse Resp B/P (MAP) Pulse Ox O2 Delivery O2 Flow Rate FiO2 08/06/17 13:00 111 08/06/17 12:00 122 08/06/17 11:00 98.4 94 16 96/55 (69) 98 08/06/17 11:00 119 08/06/17 10:00 104 08/06/17 09:00 120 08/06/17 08:00 121 08/06/17 07:00 120 08/06/17 07:00 98.7 120 14 91/57 (68) 98 08/06/17 06:00 84 08/06/17 05:00 80 08/06/17 04:00 97.8 90 20 109/63 (78) 97 08/06/17 04:00 80 08/06/17 03:00 74 08/06/17 02:00 80 08/06/17 01:00 74 08/06/17 00:00 93 08/06/17 00:00 98.3 119 20 115/74 (88) 99 08/05/17 23:00 100 08/05/17 22:00 98 08/05/17 21:00 102 08/05/17 20:00 114 08/05/17 20:00 98.3 115 20 126/81 (96) 99 08/05/17 19:00 114 08/05/17 18:00 116 08/05/17 17:00 116 08/05/17 16:00 117 08/05/17 15:00 98.0 97 16 89/64 (72) 100 08/05/17 15:00 97 I/O 08/05/17 08/05/17 08/05/17 08/06/17 08/06/17 08/06/17 07:00 15:00 23:00 07:00 15:00 23:00 Intake Total 480 ml 600 ml 1100 ml Output Total 1425 ml 900 ml 1800 ml Balance -945 ml -300 ml -700 ml Intake Oral 480 ml 600 ml 100 ml IV Total 1000 ml Output Urine Total 1425 ml 900 ml 1800 ml # Bowel Movements 0 Physical Exam GENERAL: Well developed, thin. No acute distress. HEENT: Jugular venous pressure is normal. CHEST: Lungs clear to auscultation bilaterally. Unlabored respiratory effort. CARDIAC: Tachycardic irregular rhythm without S3, S4, or murmur. ABDOMEN: Soft, nontender, no hepatosplenomegaly. Bowel sounds present. EXTREMITIES: No clubbing, cyanosis, or edema. Assessment and Plan Problem List: (1) Paroxysmal atrial flutter ICD Codes: I48.92 - Unspecified atrial flutter Status: Acute Plan: Remains in what appears to be atrial fibrillation. HR's suboptimally controlled. BP too low to increase beta magda or add diltiazem. REC restart IV Amiodarone, continue metoprolol, consider adding digoxin continue daily aspirin (2) Ischemic cardiomyopathy ICD Codes: I25.5 - Ischemic cardiomyopathy Status: Chronic Plan: Overall stable, compensated. EF about 45% by echo this admission. Recommend continue beta magda. No KURTIS-I or ARB with relatively low BP's. (3) Coronary artery disease ICD Codes: I25.10 - Atherosclerotic heart disease of [place] coronary artery without angina pectoris Status: Chronic Plan: No definite recent angina. No evidence for ACS. Continue daily aspirin , beta magda. (4) Hypertension ICD Codes: I10 - Essential (primary) hypertension Status: Chronic Plan: Stable. Normotensive. Code Status full code Discussed Condition With patient Problem Qualifiers (1) Coronary artery disease: Qualified Codes: I25.10 - Atherosclerotic heart disease of [place] coronary artery without angina pectoris (2) Hypertension: Qualified Codes: I10 - Essential (primary) hypertension Edd Ruiz MD Aug 06, 2017 14:25
--- NOTE | 2017-08-06 15:03 | HHI.PR ---
Subjective Remarks Patient is still not feeling well this morning. Occasional shortness of breath. Tachycardia with any exertion. Objective Vital Signs Date Time Temp Pulse Resp B/P (MAP) Pulse Ox O2 Delivery O2 Flow Rate FiO2 08/06/17 13:00 111 08/06/17 12:00 122 08/06/17 11:00 98.4 94 16 96/55 (69) 98 08/06/17 11:00 119 08/06/17 10:00 104 08/06/17 09:00 120 08/06/17 08:00 121 08/06/17 07:00 120 08/06/17 07:00 98.7 120 14 91/57 (68) 98 08/06/17 06:00 84 08/06/17 05:00 80 08/06/17 04:00 97.8 90 20 109/63 (78) 97 08/06/17 04:00 80 08/06/17 03:00 74 08/06/17 02:00 80 08/06/17 01:00 74 08/06/17 00:00 93 08/06/17 00:00 98.3 119 20 115/74 (88) 99 08/05/17 23:00 100 08/05/17 22:00 98 08/05/17 21:00 102 08/05/17 20:00 114 08/05/17 20:00 98.3 115 20 126/81 (96) 99 08/05/17 19:00 114 08/05/17 18:00 116 08/05/17 17:00 116 08/05/17 16:00 117 08/05/17 15:00 98.0 97 16 89/64 (72) 100 08/05/17 15:00 97 I/O 08/05/17 08/05/17 08/05/17 08/06/17 08/06/17 08/06/17 07:00 15:00 23:00 07:00 15:00 23:00 Intake Total 480 ml 600 ml 1100 ml Output Total 1425 ml 900 ml 1800 ml Balance -945 ml -300 ml -700 ml Intake Oral 480 ml 600 ml 100 ml IV Total 1000 ml Output Urine Total 1425 ml 900 ml 1800 ml # Bowel Movements 0 Result Diagram: 08/03/17 1710 08/03/17 171 Objective Remarks GENERAL: NAD, A&Ox3 SKIN: Warm and dry. HEAD: Normocephalic. EYES: No scleral icterus. No injection or drainage. NECK: Supple, trachea midline. No JVD or lymphadenopathy. CARDIOVASCULAR: Tachycardia without murmurs, gallops, or rubs. RESPIRATORY: Breath sounds equal bilaterally. No accessory muscle use. GASTROINTESTINAL: Abdomen soft, non-tender, nondistended. MUSCULOSKELETAL: No cyanosis, or edema. BACK: Nontender without obvious deformity. No CVA tenderness. A/P Problem List: (1) Paroxysmal atrial flutter ICD Code: I48.92 - Unspecified atrial flutter Status: Acute (2) Ischemic cardiomyopathy ICD Code: I25.5 - Ischemic cardiomyopathy Status: Chronic (3) Hypertension ICD Code: I10 - Essential (primary) hypertension Status: Chronic (4) Coronary artery disease ICD Code: I25.10 - Atherosclerotic heart disease of [place] coronary artery without angina pectoris Status: Chronic Assessment and Plan 71-year-old male Admitted secondary to A-flutter RVR, post CABGx3 performed three weeks ago. Atrial fibrillation with RVR Hypotension Amiodarone drip started by cardiology today Cardiology following Follow on telemetry Daily Aspirin for coagulation Follow BP CAD s/p CABG 3 weeks ago Continue Aspirin, Plavix, Lipitor. DVT Prophylaxis Heparin SQ. Discharge Planning Patient will eventually go home tomorrow with home health, once stabilized Problem Qualifiers (1) Hypertension: Qualified Codes: I10 - Essential (primary) hypertension (2) Coronary artery disease: Qualified Codes: I25.10 - Atherosclerotic heart disease of [place] coronary artery without angina pectoris Vladimir Rankin MD Aug 06, 2017 15:03
[2017-08-06] MEDS: AMIODARONE INJ 450 MG in SODIUM CHLOR 0.9% (EXCEL) INJ 241 ML IV PRN (23:53)
[2017-08-07] VITALS (30 sets, daily range): BP systolic 89–127; BP diastolic 52–82; PULSE 63–111; RESP 17–20; TEMP 97.8–98.3; O2SAT 97–100
[2017-08-07] MEDS: ACETAMINOPHEN/HYDROcodone 325 MG/10 MG TAB PO PRN ×4 (03:22→18:41)
[2017-08-07] MEDS: HEPARIN SODIUM - SQ 10,000 UNITS/ML VIAL SQ SCH ×3 (05:51→20:59)
[2017-08-07] MEDS ORDERED: AMIODARONE INJ 150 MG in DEXTROSE 5% IN WATER 100ML INJ 100 ML IV ONE ×4 (08:27→22:19)
--- NOTE | 2017-08-07 08:27 | PD.CARD.PN ---
Subjective Subjective Remarks No angina, dizziness, palpitations. Mild dyspnea at rest, no change. Objective Medications Item Value Date Time Amiodarone HCl 250 ml @ 33.33 mls/hr 08/06/17 1402 450 mg/Sodium .Q7H31M PRN/IV 08/06/17 2353 Chloride Atorvastatin 40 mg 08/04/17 0900 Calcium DAILY/PO 08/06/17 0922 (Lipitor) Metoprolol 12.5 mg 08/03/17 1700 Tartrate Q8H/PO 08/06/17 2353 (Lopressor) Aspirin 81 mg 08/01/17 0900 (Aspirin Chew) DAILY/PO 08/06/17 0922 Clopidogrel 75 mg 08/01/17 0900 Bisulfate DAILY/PO 08/06/17 0921 (Plavix) Heparin Sodium 5,000 units 07/31/17 2045 (Porcine) Q8HR/SQ 08/07/17 0551 (Heparin Inj) Current Medications Medications (Trade) Dose Ordered Sig/Ismael Route Start Time Stop Time Status Last Admin (NS Flush) 2 ml UNSCH PRN IV FLUSH 07/31/17 20:45 (NS Flush) 2 ml BID IV FLUSH 07/31/17 21:00 08/04/17 21:07 (Tylenol) 650 mg Q4H PRN PO 07/31/17 20:45 (Zofran Odt) 4 mg Q6H PRN SL 07/31/17 20:45 (Heparin Inj) 5,000 units Q8HR SQ 07/31/17 20:45 08/07/17 05:51 (Narcan Inj) 0.4 mg UNSCH PRN IV PUSH 07/31/17 20:45 (Milk Of Magnesia Liq) 30 ml Q12H PRN PO 07/31/17 20:45 (Senokot) 17.2 mg Q12H PRN PO 07/31/17 20:45 (Dulcolax Supp) 10 mg DAILY PRN RECTAL 07/31/17 20:45 (Lactulose Liq) 30 ml DAILY PRN PO 07/31/17 20:45 (Aspirin Chew) 81 mg DAILY PO 08/01/17 09:00 08/06/17 09:22 (Plavix) 75 mg DAILY PO 08/01/17 09:00 08/06/17 09:21 (Neurontin) 100 mg BID PO 07/31/17 21:00 08/06/17 21:00 (Prinivil) 5 mg DAILY PO 08/01/17 09:00 Future Hold 08/03/17 08:49 (Deltasone) 10 mg DAILY PO 08/01/17 09:00 08/06/17 09:21 (Protonix) 20 mg DAILY PO 08/01/17 09:00 08/06/17 09:21 ([place] 10-325 Mg) 1 tab Q4H PRN PO 08/01/17 22:15 08/07/17 03:22 (Cordarone) 400 mg DAILY PO 08/02/17 09:15 Future Hold 08/06/17 09:21 (Pill Splitter) 1 ea UNSCH PRN OTHER 08/02/17 09:15 (Flomax) 0.4 mg DAILY PO 08/04/17 09:00 08/06/17 09:21 (Lopressor) 12.5 mg Q8H PO 08/03/17 17:00 08/06/17 23:53 (Lipitor) 40 mg DAILY PO 08/04/17 09:00 08/06/17 09:22 Amiodarone HCl 450 mg/Sodium Chloride 250 ml @ 33.33 mls/ hr Q7H31M PRN IV 08/06/17 14:02 08/06/17 23:53 Vital Signs / I&O Vital Signs Date Time Temp Pulse Resp B/P (MAP) Pulse Ox O2 Delivery O2 Flow Rate FiO2 08/07/17 07:15 97.8 87 17 104/67 (79) 97 08/07/17 07:15 106 08/07/17 06:12 71 08/07/17 05:34 72 08/07/17 04:17 93 08/07/17 03:59 63 08/07/17 03:59 98.3 106 20 127/82 (97) 100 08/07/17 02:47 65 08/07/17 01:47 70 08/07/17 00:49 85 08/06/17 23:53 104 102/65 08/06/17 23:40 107 08/06/17 23:40 98.0 97 19 102/65 (77) 97 08/06/17 22:10 105 08/06/17 21:20 105 08/06/17 20:24 108 08/06/17 19:30 110 08/06/17 19:30 98.4 111 20 108/67 (81) 97 08/06/17 18:00 110 08/06/17 17:00 114 08/06/17 16:00 112 08/06/17 15:09 102 89/62 08/06/17 15:00 113 08/06/17 15:00 98.2 118 14 85/60 (68) 98 08/06/17 14:00 113 08/06/17 13:00 111 08/06/17 12:00 122 08/06/17 11:00 98.4 94 16 96/55 (69) 98 08/06/17 11:00 119 08/06/17 10:00 104 08/06/17 09:00 120 I/O 08/06/17 08/06/17 08/06/17 08/07/17 08/07/17 08/07/17 07:00 15:00 23:00 07:00 15:00 23:00 Intake Total 1100 ml 1200 ml 491 ml Output Total 1800 ml 300 ml 850 ml Balance -700 ml 900 ml -359 ml Intake Oral 100 ml 1200 ml 240 ml IV Total 1000 ml 251 ml Output Urine Total 1800 ml 300 ml 850 ml # Voids 3 # Bowel Movements 1 0 Physical Exam GENERAL: Well developed, thin. No acute distress. HEENT: Jugular venous pressure is normal. CHEST: Lungs clear to auscultation bilaterally. Unlabored respiratory effort. CARDIAC: Regular rhythm, mildly tachycardic, without S3, S4, or murmur. ABDOMEN: Soft, nontender, no hepatosplenomegaly. Bowel sounds present. EXTREMITIES: No clubbing, cyanosis, or edema. Assessment and Plan Problem List: (1) Paroxysmal atrial flutter ICD Codes: I48.92 - Unspecified atrial flutter Status: Acute Plan: Atrial fib------->atrial flutter. HR's this morning minimally elevated. BP usually too low to increase beta magda or add diltiazem. Thromboembolic risk overall low. REC continue IV Amiodarone another 24 hours, additional 150 mg bolus this am continue daily aspirin, metoprolol (2) Ischemic cardiomyopathy ICD Codes: I25.5 - Ischemic cardiomyopathy Status: Chronic Plan: Overall stable, compensated. EF about 45% by echo this admission. Recommend continue beta magda. No KURTIS-I or ARB with relatively low BP's. (3) Coronary artery disease ICD Codes: I25.10 - Atherosclerotic heart disease of [place] coronary artery without angina pectoris Status: Chronic Plan: Status post recent CABG. No definite recent angina. No evidence for ACS. Continue daily aspirin, beta magda. (4) Hypertension ICD Codes: I10 - Essential (primary) hypertension Status: Chronic Plan: Stable. Normotensive today. Code Status full code Discussed Condition With patient Problem Qualifiers (1) Coronary artery disease: Qualified Codes: I25.10 - Atherosclerotic heart disease of [place] coronary artery without angina pectoris (2) Hypertension: Qualified Codes: I10 - Essential (primary) hypertension Edd Ruiz MD Aug 07, 2017 08:27
[2017-08-07] MEDS: ASPIRIN 81 MG CHEW TAB PO SCH (08:29)
[2017-08-07] MEDS: CLOPIDOGREL 75 MG TAB PO SCH (08:29)
[2017-08-07] MEDS: ATORVASTATIN 40 MG TAB PO SCH (08:29)
[2017-08-07] MEDS: GABAPENTIN 100 MG CAP PO SCH ×2 (08:29→20:58)
[2017-08-07] MEDS: TAMSULOSIN HCL 0.4 MG CAP PO SCH (08:30)
[2017-08-07] MEDS: predniSONE 10 MG TAB PO SCH (08:30)
[2017-08-07] MEDS: PANTOPRAZOLE SOD 20 MG DELAYED RELEASE TAB PO SCH (08:30)
[2017-08-07] MEDS: METOPROLOL TARTRATE 25 MG TAB PO SCH ×2 (08:32→17:34)
[2017-08-07] MEDS: SODIUM CHLORIDE 0.9% FLUSH 10 ML FLUSH IV FLUSH SCH ×2 (08:35→20:58)
--- NOTE | 2017-08-07 09:59 | EKG ---
Date Performed: 08/06/2017 Time Performed: 09:16:12 PTAGE: 71 years EKG: Possible atrial flutter Left axis deviation RBBB with left anterior fascicular block Latera l T wave changes are nonspecific Abnormal ECG PREVIOUS TRACING : 07/31/2017 15.15 DOCTOR: Vladimir Izaguirre Interpretating Date/Time 08/07/2017 09:58:05
--- NOTE | 2017-08-07 11:00 | HHI.PR ---
Subjective Remarks IV amiodarone over the last 24 hours has provided patient with improved heart rate and subsequently improved symptoms. Plan to continue IV hydration over next 24 hours. No new complaints from the patient. Objective Vital Signs Date Time Temp Pulse Resp B/P (MAP) Pulse Ox O2 Delivery O2 Flow Rate FiO2 08/07/17 10:00 73 08/07/17 09:59 17 08/07/17 09:58 77 92/51 08/07/17 09:00 79 08/07/17 08:37 92/52 (65) 08/07/17 08:00 86 08/07/17 07:15 97.8 87 17 104/67 (79) 97 08/07/17 07:15 106 08/07/17 06:12 71 08/07/17 05:34 72 08/07/17 04:17 93 08/07/17 03:59 63 08/07/17 03:59 98.3 106 20 127/82 (97) 100 08/07/17 02:47 65 08/07/17 01:47 70 08/07/17 00:49 85 08/06/17 23:53 104 102/65 08/06/17 23:40 107 08/06/17 23:40 98.0 97 19 102/65 (77) 97 08/06/17 22:10 105 08/06/17 21:20 105 08/06/17 20:24 108 08/06/17 19:30 110 08/06/17 19:30 98.4 111 20 108/67 (81) 97 08/06/17 18:00 110 08/06/17 17:00 114 08/06/17 16:00 112 08/06/17 15:09 102 89/62 08/06/17 15:00 113 08/06/17 15:00 98.2 118 14 85/60 (68) 98 08/06/17 14:00 113 08/06/17 13:00 111 08/06/17 12:00 122 08/06/17 11:00 98.4 94 16 96/55 (69) 98 08/06/17 11:00 119 I/O 08/06/17 08/06/17 08/06/17 08/07/17 08/07/17 08/07/17 07:00 15:00 23:00 07:00 15:00 23:00 Intake Total 1100 ml 1200 ml 491 ml 168 ml Output Total 1800 ml 300 ml 850 ml Balance -700 ml 900 ml -359 ml 168 ml Intake Oral 100 ml 1200 ml 240 ml IV Total 1000 ml 251 ml 168 ml Output Urine Total 1800 ml 300 ml 850 ml # Voids 3 # Bowel Movements 1 0 Result Diagram: 08/03/17 1710 08/03/17 1710 Objective Remarks GENERAL: NAD, A&Ox3 SKIN: Warm and dry. HEAD: Normocephalic. EYES: No scleral icterus. No injection or drainage. NECK: Supple, trachea midline. No JVD or lymphadenopathy. CARDIOVASCULAR: Tachycardia without murmurs, gallops, or rubs. RESPIRATORY: Breath sounds equal bilaterally. No accessory muscle use. GASTROINTESTINAL: Abdomen soft, non-tender, nondistended. MUSCULOSKELETAL: No cyanosis, or edema. BACK: Nontender without obvious deformity. No CVA tenderness. A/P Problem List: (1) Paroxysmal atrial flutter ICD Code: I48.92 - Unspecified atrial flutter Status: Acute (2) Ischemic cardiomyopathy ICD Code: I25.5 - Ischemic cardiomyopathy Status: Chronic (3) Hypertension ICD Code: I10 - Essential (primary) hypertension Status: Chronic (4) Coronary artery disease ICD Code: I25.10 - Atherosclerotic heart disease of [place] coronary artery without angina pectoris Status: Chronic Assessment and Plan 71-year-old male Admitted secondary to A-flutter RVR, post CABGx3 performed three weeks ago. Continue IV amiodarone. Cardiology following. Possible discharge tomorrow if IV amiodarone run discontinued and patient's symptoms remain resolved. Atrial fibrillation with RVR Hypotension Amiodarone drip started by cardiology today Cardiology following Follow on telemetry Daily Aspirin for coagulation Follow BP CAD s/p CABG 3 weeks ago Continue Aspirin, Plavix, Lipitor. DVT Prophylaxis Heparin SQ. Discharge Planning Patient will eventually go home tomorrow with home health, once stabilized Problem Qualifiers (1) Hypertension: Qualified Codes: I10 - Essential (primary) hypertension (2) Coronary artery disease: Qualified Codes: I25.10 - Atherosclerotic heart disease of [place] coronary artery without angina pectoris Vladimir Rankin MD Aug 07, 2017 11:00
[2017-08-07] MEDS: AMIODARONE INJ 450 MG in SODIUM CHLOR 0.9% (EXCEL) INJ 241 ML IV PRN (15:02)
[2017-08-08] VITALS (28 sets, daily range): BP systolic 82–133; BP diastolic 55–70; PULSE 55–108; RESP 18–22; TEMP 97.7–98.6; O2SAT 97–99
[2017-08-08] MEDS: METOPROLOL TARTRATE 25 MG TAB PO SCH ×3 (01:14→17:35)
[2017-08-08] MEDS: HEPARIN SODIUM - SQ 10,000 UNITS/ML VIAL SQ SCH ×3 (04:57→21:31)
[2017-08-08] MEDS: ACETAMINOPHEN/HYDROcodone 325 MG/10 MG TAB PO PRN ×3 (04:58→20:06)
[2017-08-08] MEDS: GABAPENTIN 100 MG CAP PO SCH ×2 (08:08→21:31)
[2017-08-08] MEDS: CLOPIDOGREL 75 MG TAB PO SCH (08:09)
[2017-08-08] MEDS: ATORVASTATIN 40 MG TAB PO SCH (08:09)
[2017-08-08] MEDS: predniSONE 10 MG TAB PO SCH (08:09)
[2017-08-08] MEDS: PANTOPRAZOLE SOD 20 MG DELAYED RELEASE TAB PO SCH (08:09)
[2017-08-08] MEDS: ASPIRIN 81 MG CHEW TAB PO SCH (08:09)
[2017-08-08] MEDS: TAMSULOSIN HCL 0.4 MG CAP PO SCH (08:09)
[2017-08-08] MEDS: AMIODARONE INJ 450 MG in SODIUM CHLOR 0.9% (EXCEL) INJ 241 ML IV PRN (08:13)
--- NOTE | 2017-08-08 08:21 | PD.CARD.PN ---
Subjective Subjective Remarks No angina, dizziness, palpitations. Mild dyspnea at rest, worse with exertion, no change. Objective Medications Item Value Date Time Amiodarone HCl 250 ml @ 33.33 mls/hr 08/06/17 1402 450 mg/Sodium .Q7H31M PRN/IV 08/08/17 0813 Chloride Atorvastatin 40 mg 08/04/17 0900 Calcium DAILY/PO 08/08/17 08 (Lipitor) Metoprolol 12.5 mg 08/03/17 1700 Tartrate Q8H/PO 08/08/17 08 (Lopressor) Aspirin 81 mg 08/01/17 0900 (Aspirin Chew) DAILY/PO 08/08/17 08 Clopidogrel 75 mg 08/01/17 0900 Bisulfate DAILY/PO 08/08/17 08 (Plavix) Current Medications Medications (Trade) Dose Ordered Sig/Ismael Route Start Time Stop Time Status Last Admin (NS Flush) 2 ml UNSCH PRN IV FLUSH 07/31/17 20:45 (NS Flush) 2 ml BID IV FLUSH 07/31/17 21:00 08/07/17 08:35 (Tylenol) 650 mg Q4H PRN PO 07/31/17 20:45 (Zofran Odt) 4 mg Q6H PRN SL 07/31/17 20:45 (Heparin Inj) 5,000 units Q8HR SQ 07/31/17 20:45 08/08/17 04:57 (Narcan Inj) 0.4 mg UNSCH PRN IV PUSH 07/31/17 20:45 (Milk Of Magnesia Liq) 30 ml Q12H PRN PO 07/31/17 20:45 (Senokot) 17.2 mg Q12H PRN PO 07/31/17 20:45 (Dulcolax Supp) 10 mg DAILY PRN RECTAL 07/31/17 20:45 (Lactulose Liq) 30 ml DAILY PRN PO 07/31/17 20:45 (Aspirin Chew) 81 mg DAILY PO 08/01/17 09:00 08/08/17 08:09 (Plavix) 75 mg DAILY PO 08/01/17 09:00 08/08/17 08:09 (Neurontin) 100 mg BID PO 07/31/17 21:00 08/08/17 08:08 (Prinivil) 5 mg DAILY PO 08/01/17 09:00 Future Hold 08/03/17 08:49 (Deltasone) 10 mg DAILY PO 08/01/17 09:00 08/08/17 08:09 (Protonix) 20 mg DAILY PO 08/01/17 09:00 08/08/17 08:09 ([place] 10-325 Mg) 1 tab Q4H PRN PO 08/01/17 22:15 08/08/17 04:58 (Cordarone) 400 mg DAILY PO 08/02/17 09:15 Future Hold 08/06/17 09:21 (Pill Splitter) 1 ea UNSCH PRN OTHER 08/02/17 09:15 (Flomax) 0.4 mg DAILY PO 08/04/17 09:00 08/08/17 08:09 (Lopressor) 12.5 mg Q8H PO 08/03/17 17:00 08/08/17 08:09 (Lipitor) 40 mg DAILY PO 08/04/17 09:00 08/08/17 08:09 Amiodarone HCl 450 mg/Sodium Chloride 250 ml @ 33.33 mls/ hr Q7H31M PRN IV 08/06/17 14:02 08/08/17 08:13 Vital Signs / I&O Vital Signs Date Time Temp Pulse Resp B/P (MAP) Pulse Ox O2 Delivery O2 Flow Rate FiO2 08/08/17 08:13 86 97/67 08/08/17 06:00 100 08/08/17 05:00 104 08/08/17 04:00 90 08/08/17 03:00 96 08/08/17 03:00 98.6 85 20 101/70 (80) 98 08/08/17 02:00 90 08/08/17 01:12 88 98/62 (74) 08/08/17 01:00 88 08/08/17 00:00 72 08/08/17 00:00 97.7 100 20 99/70 (80) 99 08/08/17 00:00 88 08/07/17 23:10 102 98/66 (77) 08/07/17 23:02 91 101/73 08/07/17 23:00 82 08/07/17 22:00 76 08/07/17 21:00 86 08/07/17 20:00 76 08/07/17 20:00 98.3 105 20 102/66 (78) 97 08/07/17 20:00 74 08/07/17 19:00 104 08/07/17 18:00 107 08/07/17 17:29 114/70 (85) 08/07/17 17:00 107 08/07/17 16:00 85 08/07/17 15:02 110 108/69 08/07/17 15:00 98.3 110 17 108/69 (82) 97 08/07/17 15:00 108 08/07/17 14:00 107 08/07/17 13:00 109 08/07/17 12:00 111 08/07/17 11:00 97.9 70 18 98/55 (69) 98 08/07/17 11:00 76 08/07/17 10:45 89/53 (65) 08/07/17 10:30 90/55 (67) 08/07/17 10:15 89/53 (65) 08/07/17 10:00 73 08/07/17 09:59 17 08/07/17 09:58 77 92/51 08/07/17 09:00 79 08/07/17 08:37 92/52 (65) I/O 08/07/17 08/07/17 08/07/17 08/08/17 08/08/17 08/08/17 07:00 15:00 23:00 07:00 15:00 23:00 Intake Total 491 ml 318 ml 420 ml 552 ml Output Total 850 ml 800 ml 750 ml Balance -359 ml 318 ml -380 ml -198 ml Intake Oral 240 ml 360 ml 350 ml IV Total 251 ml 318 ml 60 ml 202 ml Output Urine Total 850 ml 800 ml 750 ml # Bowel Movements 0 0 Physical Exam GENERAL: Well developed, thin. No acute distress. HEENT: Jugular venous pressure is normal. CHEST: Lungs clear to auscultation bilaterally. Unlabored respiratory effort. CARDIAC: Regular rhythm, mildly tachycardic, without S3, S4, or murmur. ABDOMEN: Soft, nontender, no hepatosplenomegaly. Bowel sounds present. EXTREMITIES: No clubbing, cyanosis, or edema. Assessment and Plan Problem List: (1) Paroxysmal atrial flutter ICD Codes: I48.92 - Unspecified atrial flutter Status: Acute Plan: Remains in atrial fib/flutter. HR's this morning normal, mildly elevated last night. BP too low to increase beta magda or add diltiazem. Thromboembolic risk overall low. REC change back to oral Amiodarone; OK to discharge around lunch time today if HR's normal, < 100 continue daily aspirin, metoprolol (2) Ischemic cardiomyopathy ICD Codes: I25.5 - Ischemic cardiomyopathy Status: Chronic Plan: Overall stable, compensated. EF about 45% by echo this admission. Recommend continue beta magda. No KURTIS-I or ARB with relatively low BP's. (3) Coronary artery disease ICD Codes: I25.10 - Atherosclerotic heart disease of [place] coronary artery without angina pectoris Status: Chronic Plan: Status post recent CABG. No definite recent angina. No evidence for ACS. Continue daily aspirin, beta magda. (4) Hypertension ICD Codes: I10 - Essential (primary) hypertension Status: Chronic Plan: Stable. Normotensive today. Code Status full code Discussed Condition With patient Problem Qualifiers (1) Coronary artery disease: Qualified Codes: I25.10 - Atherosclerotic heart disease of [place] coronary artery without angina pectoris (2) Hypertension: Qualified Codes: I10 - Essential (primary) hypertension Edd Ruiz MD Aug 08, 2017 08:20
[2017-08-08] MEDS: SODIUM CHLORIDE 0.9% FLUSH 10 ML FLUSH IV FLUSH SCH ×2 (09:00→21:00)
[2017-08-08] MEDS: AMIODARONE 200 MG TAB PO SCH (11:23)
--- NOTE | 2017-08-08 15:21 | HHI.PR ---
Subjective Remarks Latest HR is 106. Low BP at 11am today. Patient is not feeling ill. Objective Vital Signs Date Time Temp Pulse Resp B/P (MAP) Pulse Ox O2 Delivery O2 Flow Rate FiO2 08/08/17 14:01 106 08/08/17 13:01 106 08/08/17 12:00 82 08/08/17 11:15 98.1 108 18 82/55 (64) 98 08/08/17 11:00 80 08/08/17 10:00 76 08/08/17 09:00 78 08/08/17 08:13 86 97/67 08/08/17 08:01 97.7 86 18 97/67 (77) 97 08/08/17 08:00 82 08/08/17 07:00 91 08/08/17 06:00 100 08/08/17 05:00 104 08/08/17 04:00 90 08/08/17 03:00 96 08/08/17 03:00 98.6 85 20 101/70 (80) 98 08/08/17 02:00 90 08/08/17 01:12 88 98/62 (74) 08/08/17 01:00 88 08/08/17 00:00 72 08/08/17 00:00 97.7 100 20 99/70 (80) 99 08/08/17 00:00 88 08/07/17 23:10 102 98/66 (77) 08/07/17 23:02 91 101/73 08/07/17 23:00 82 08/07/17 22:00 76 08/07/17 21:00 86 08/07/17 20:00 76 08/07/17 20:00 98.3 105 20 102/66 (78) 97 08/07/17 20:00 74 08/07/17 19:00 104 08/07/17 18:00 107 08/07/17 17:29 114/70 (85) 08/07/17 17:00 107 08/07/17 16:00 85 I/O 08/07/17 08/07/17 08/07/17 08/08/17 08/08/17 08/08/17 07:00 15:00 23:00 07:00 15:00 23:00 Intake Total 491 ml 318 ml 420 ml 552 ml 50 ml Output Total 850 ml 800 ml 750 ml Balance -359 ml 318 ml -380 ml -198 ml 50 ml Intake Oral 240 ml 360 ml 350 ml IV Total 251 ml 318 ml 60 ml 202 ml 50 ml Output Urine Total 850 ml 800 ml 750 ml # Bowel Movements 0 0 Objective Remarks GENERAL: NAD, A&Ox3 SKIN: Warm and dry. HEAD: Normocephalic. EYES: No scleral icterus. No injection or drainage. NECK: Supple, trachea midline. No JVD or lymphadenopathy. CARDIOVASCULAR: Tachycardia without murmurs, gallops, or rubs. RESPIRATORY: Breath sounds equal bilaterally. No accessory muscle use. GASTROINTESTINAL: Abdomen soft, non-tender, nondistended. MUSCULOSKELETAL: No cyanosis, or edema. BACK: Nontender without obvious deformity. No CVA tenderness. A/P Problem List: (1) Paroxysmal atrial flutter ICD Code: I48.92 - Unspecified atrial flutter Status: Acute (2) Ischemic cardiomyopathy ICD Code: I25.5 - Ischemic cardiomyopathy Status: Chronic (3) Hypertension ICD Code: I10 - Essential (primary) hypertension Status: Chronic (4) Coronary artery disease ICD Code: I25.10 - Atherosclerotic heart disease of [place] coronary artery without angina pectoris Status: Chronic Assessment and Plan 71-year-old male Admitted secondary to A-flutter RVR, post CABGx3 performed three weeks ago. Transition to p.o. amiodarone. Monitoring for stability.. Cardiology following. Discharge pending stability in patient's heart rate which is preferred to be less than 100 bpm. Atrial fibrillation with RVR Hypotension Amiodarone drip started by cardiology today Cardiology following Follow on telemetry Daily Aspirin for coagulation Follow BP CAD s/p CABG 3 weeks ago Continue Aspirin, Plavix, Lipitor. DVT Prophylaxis Heparin SQ. Discharge Planning Patient will eventually go home with home health, once stabilized Problem Qualifiers (1) Hypertension: Qualified Codes: I10 - Essential (primary) hypertension (2) Coronary artery disease: Qualified Codes: I25.10 - Atherosclerotic heart disease of [place] coronary artery without angina pectoris Vladimir Rankin MD Aug 08, 2017 15:21
[2017-08-08] MEDS ORDERED: DIGOXIN 0.5 MG/2 ML VIAL IV PUSH ONE ×2 (15:30→21:30)
--- NOTE | 2017-08-08 18:22 | EKG ---
Date Performed: 08/07/2017 Time Performed: 09:27:00 PTAGE: 71 years EKG: Possible atrial flutter. Left anterior fascicular block Ant/septal and lateral T wave guillen es may be due to myocardial ischemia Abnormal ECG PREVIOUS TRACING : 08/06/2017 09.16 Since the previous tracing, no significant change noted DOCTOR: Leanna Pires Interpretating Date/Time 08/08/2017 18:21:33
[2017-08-09] VITALS (24 sets, daily range): BP systolic 98–133; BP diastolic 51–61; PULSE 49–56; RESP 16–22; TEMP 97.5–98.6; O2SAT 94–99
[2017-08-09] MEDS: ACETAMINOPHEN/HYDROcodone 325 MG/10 MG TAB PO PRN ×4 (01:41→21:57)
[2017-08-09] MEDS: METOPROLOL TARTRATE 25 MG TAB PO SCH ×3 (01:42→16:25)
[2017-08-09] MEDS: HEPARIN SODIUM - SQ 10,000 UNITS/ML VIAL SQ SCH ×3 (06:21→21:57)
[2017-08-09] MEDS ORDERED: AMIO200T PO (08:41)
[2017-08-09] MEDS ORDERED: DIGO0.12 PO (08:41)
--- NOTE | 2017-08-09 08:44 | HHI.DS ---
Discharge Summary Admission Date Aug 06, 2017 at 14:58 Discharge Date: Aug 09, 2017 Admitting Diagnosis atrial flutter in RVR, COPD exacerbation, bronchitis (1) Atrial fibrillation with RVR ICD Code: I48.91 - Unspecified atrial fibrillation Diagnosis: Principal (2) S/P CABG (coronary artery bypass graft) ICD Code: Z95.1 - Presence of aortocoronary bypass graft Diagnosis: Principal (3) Hypotension ICD Code: I95.9 - Hypotension, unspecified Diagnosis: Principal Procedures None. Brief History - From Admission 71-year-old male with a past medical history significant for atrial fibrillation , coronary artery disease status post CABG 3 3 weeks ago, rheumatoid arthritis , hyperlipidemia, COPD, rheumatoid arthritis and neuropathy presents the emergency department for evaluation of shortness of breath. The patient reports that he awoke this morning and was short of breath. He was on his way to his primary care physician's office when his shortness of breath acutely worsened. He called EMS for further evaluation. He also complains of a sharp chest pain in the middle of his chest that radiates to the right side. He denies any abdominal pain. No nausea/vomiting/diarrhea. No lateralizing signs/ symptoms. PE at Discharge GENERAL: Alert, Oriented x 3, NAD. SKIN: Warm and dry. Sternal incision well healed. HEAD: Normocephalic. EYES: No scleral icterus. No injection or drainage. NECK: Supple, trachea midline. No JVD or lymphadenopathy. CARDIOVASCULAR: Regular rhythm and rate without murmurs, gallops, or rubs. RESPIRATORY: Breath sounds equal bilaterally. No accessory muscle use. GASTROINTESTINAL: Abdomen soft, non-tender, nondistended. MUSCULOSKELETAL: No cyanosis, or edema. BACK: Nontender without obvious deformity. No CVA tenderness. Pt Condition on Discharge: Good Discharge Disposition: Disch w/ Home Health Serv Discharge Instructions DIET: Follow Instructions for: Heart Healthy Diet Activities you can perform: Regular-No Restrictions Follow up Referrals: Cardiology - 2 Weeks with Leanna Pires MD PCP Follow-up - 1 Week New Medications: Digoxin (Digoxin) 0.125 Mg Tab 0.125 MG PO DAILY for Regulate Heart Beat, #30 TAB 0 Refills Amiodarone (Amiodarone) 200 Mg Tab 200 MG PO DAILY for Heart Rate Control, #30 TAB Metoprolol Tartrate (Metoprolol Tartrate) 25 Mg Tab 12.5 MG PO Q8H for Heart for 30 Days, #45 TAB 3 Refills Hold if systolic BP < 95 or Heart rate < 65 Tamsulosin (Flomax) 0.4 Mg Cap 0.4 MG PO DAILY for BPH, #30 CAP 11 Refills Continued Medications: Aspirin (Tgt Aspirin) 81 Mg Chw 81 MG PO DAILY for Blood Clot Prevention, #30 EA 2 Refills Atorvastatin (Lipitor) 10 Mg Tab 40 MG PO DAILY for Cholesterol Management, #30 TAB 2 Refills Clopidogrel (Plavix) 75 Mg Tab 75 MG PO DAILY for Blood Clot Prevention, #30 TAB 2 Refills Ferrous Sulfate (Ferrous Sulfate) 325 Mg (65 Mg Iron) Tablet 325 MG PO BIDPC for Nutritional Supplement, #60 TAB 0 Refills Gabapentin (Gabapentin) 100 Mg Cap 100 MG PO BID, #60 CAP 0 Refills Omeprazole (Omeprazole) 20 Mg Tab 20 MG PO DAILY, #30 TAB 0 Refills Oxycodone HCl/Acetaminophen (Oxycodone-Acetaminophen 10-325) 10 Mg-325 Mg Tablet 1 TAB PO Q4H PRN for PAIN SCALE 1 TO 5, #40 TAB 0 Refills Prednisone (Prednisone) 10 Mg Tab 10 MG PO DAILY for chronic steroid use, #30 TAB 1 Refill Discontinued Medications: Docusate Sodium (Dok) 100 Mg Cap 100 MG PO BID for Constipation, #60 CAP 0 Refills Lisinopril (Lisinopril) 5 Mg Tab 5 MG PO DAILY for Blood Pressure Management, #30 TAB 2 Refills Magnesium Oxide (Magnesium Oxide) 500 Mg Cap Metoprolol Tartrate (Metoprolol Tartrate) 25 Mg Tab 25 MG PO BID for Blood Pressure Management, #60 TAB 3 Refills Vladimir Rnakin MD Aug 09, 2017 08:44
[2017-08-09] MEDS ORDERED: DIGOXIN 0.125 MG TAB PO SCH (09:00)
[2017-08-09] MEDS: TAMSULOSIN HCL 0.4 MG CAP PO SCH (09:13)
[2017-08-09] MEDS: PANTOPRAZOLE SOD 20 MG DELAYED RELEASE TAB PO SCH (09:14)
[2017-08-09] MEDS: ASPIRIN 81 MG CHEW TAB PO SCH (09:14)
[2017-08-09] MEDS: predniSONE 10 MG TAB PO SCH (09:14)
[2017-08-09] MEDS: GABAPENTIN 100 MG CAP PO SCH ×2 (09:14→21:57)
[2017-08-09] MEDS: ATORVASTATIN 40 MG TAB PO SCH (09:14)
[2017-08-09] MEDS: CLOPIDOGREL 75 MG TAB PO SCH (09:14)
[2017-08-09] MEDS: SODIUM CHLORIDE 0.9% FLUSH 10 ML FLUSH IV FLUSH SCH ×2 (09:15→21:00)
[2017-08-09] MEDS: AMIODARONE 200 MG TAB PO SCH (09:24)
[2017-08-09] MEDS ORDERED: IOHEXOL 350 MG/ML 10 ML VIAL (for RAD DIAG) IVCONTRAST ONE ×3 (15:06→16:08)
--- NOTE | 2017-08-09 17:18 | RADRPT ---
EXAM DATE: 08/09/2017 4:29 PM EDT AGE/SEX: 71 years / Male INDICATIONS: Left foot pain and swelling, possible vascular disease. CLINICAL DATA: This is the patient's initial encounter. Patient reports that signs and symptoms have been present for 1 day and indicates a pain score of 4/10. MEDICAL/SURGICAL HISTORY: Cardiovascular disease. CABG. RADIATION DOSE: 3.96 CTDI (mGy) COMPARISON: No prior exams available for comparison. TECHNIQUE: Volumetric scanning was performed using a multi-row detector CT scanner during bolus infu vinayak of 100 ml Omnipaque 350 (iohexol) nonionic water-soluble contrast as a single exam dose. The data was post processed with a variety of visualization algorithms including full volume maximum inte nsity projection, multi-planar sliding thin slab reformation, curved planar reformation, and surface rendering techniques. Using automated exposure control and adjustment of the mA and/or kV according to patient size, radiation dose was kept as low as reasonably achievable to obtain optimal diagnostic quality images. FINDINGS: AORTA: Diffuse calcified atherosclerotic plaque throughout the abdominal aorta and inflow vessels. No aneurysmal change or significant stenosis. A small ulcerated plaque is seen involving the left anter ior lateral infrarenal abdominal aortic wall. Inflow vessels are patent. A moderate stenosis involvin g the right internal iliac artery origin. The left is patent. Celiac, SMA, JERRY, and renal arteries ar e patent. RIGHT LOWER EXTREMITY: Calcified atherosclerotic plaque generates a 40% stenosis involving the common femoral artery. Profunda femoris is patent. The outflow vessels are diffusely calcified. There is li mited opacification of the outflow and runoff vessels. This significantly limits the patency evaluati on particularly involving the trifurcation vessels. The SFA is felt patent. The [id number]-[id number] poplit eal artery is patent. The contrast density quickly tapers within the below-knee popliteal artery and the trifurcation vessels are unopacified. There are heavily calcified generating beam hardening artif act. Patency of these vessels cannot be assessed. There is contrast seen involving the plantar vessel s . LEFT LOWER EXTREMITY: Common femoral artery is patent. Profunda femoris is patent. The outflow vessel s are diffusely calcified. There is limited opacification of the outflow and runoff vessels. This sig nificantly limits the patency evaluation particularly involving the trifurcation vessels. The SFA is felt patent. The [id number]-sgz-jblf popliteal artery is patent. The contrast density quickly tapers withi n the below-knee popliteal artery and the trifurcation vessels are unopacified. There are heavily kavin cified generating beam hardening artifact. Patency of these vessels cannot be assessed. There is cont rast seen involving the plantar vessels . OTHER STRUCTURES: Small left pleural effusion. There is associated passive atelectasis. Small umbilic al hernia containing fat. Colonic diverticulosis most pronounced within the sigmoid colon. No acute i nflammation is seen. A degenerative lumbar spine. CONCLUSION: 1. Diffuse calcified atherosclerotic plaque with patent inflow bilaterally. 2. Both lower extremities are somewhat limited in their evaluation due to delusional affect of the c ontrast column. This predominantly affects the below-knee popliteal artery through the trifurcation v essel evaluation. The outflow is felt patent to the level of the ztlck-tae-ychz popliteal artery bila terally. Distal to this patency evaluation cannot be assessed due to the poor opacification with the contrast bolus. This may relate to a reduction in cardiac output. 3. Small left pleural effusion. 4. Umbilical hernia containing fat. 5. Colonic diverticulosis. Electronically signed by: Guillermo Lewis MD 08/09/2017 5:16 PM EDT
--- NOTE | 2017-08-09 18:09 | HHI.PR ---
Subjective Remarks HR is better controlled today. Patient complaints of nausea this morning, which improved through the day. He also complained of left lower extremity swelling and pain. No DVT on ultrasound. CT runoff does not show specific evidence for occlusion. Objective Vital Signs Date Time Temp Pulse Resp B/P (MAP) Pulse Ox O2 Delivery O2 Flow Rate FiO2 08/09/17 18:00 54 08/09/17 17:00 50 08/09/17 16:27 18 08/09/17 16:11 52 08/09/17 15:15 56 08/09/17 15:00 98.3 56 22 107/51 (69) 94 08/09/17 14:00 54 08/09/17 13:00 54 08/09/17 12:07 51 08/09/17 12:00 98.6 54 22 98/55 (69) 99 08/09/17 12:00 50 08/09/17 11:00 52 08/09/17 10:00 52 08/09/17 09:00 54 08/09/17 08:00 54 08/09/17 07:09 54 08/09/17 07:00 56 08/09/17 06:00 50 08/09/17 05:00 52 08/09/17 04:00 52 08/09/17 03:00 97.5 52 22 133/60 (84) 98 08/09/17 03:00 52 08/09/17 02:00 52 08/09/17 01:00 52 08/09/17 00:00 52 08/08/17 23:00 97.8 55 22 133/60 (84) 97 08/08/17 23:00 55 08/08/17 22:00 98 08/08/17 21:00 70 08/08/17 20:00 102 08/08/17 19:00 104 08/08/17 19:00 98.3 104 22 117/62 (80) 98 I/O 08/08/17 08/08/17 08/08/17 08/09/17 08/09/17 08/09/17 07:00 15:00 23:00 07:00 15:00 23:00 Intake Total 552 ml 50 ml 720 ml 240 ml 360 ml Output Total 750 ml 350 ml 400 ml Balance -198 ml 50 ml 370 ml -160 ml 360 ml Intake Oral 350 ml 720 ml 240 ml 360 ml IV Total 202 ml 50 ml Output Urine Total 750 ml 350 ml 400 ml # Voids 3 6 # Bowel Movements 0 1 1 Objective Remarks GENERAL: NAD, A&Ox3 SKIN: Warm and dry. HEAD: Normocephalic. EYES: No scleral icterus. No injection or drainage. NECK: Supple, trachea midline. No JVD or lymphadenopathy. CARDIOVASCULAR: Tachycardia without murmurs, gallops, or rubs. RESPIRATORY: Breath sounds equal bilaterally. No accessory muscle use. GASTROINTESTINAL: Abdomen soft, non-tender, nondistended. MUSCULOSKELETAL: No cyanosis, edema at left lower extremity. BACK: Nontender without obvious deformity. No CVA tenderness. A/P Problem List: (1) Paroxysmal atrial flutter ICD Code: I48.92 - Unspecified atrial flutter Status: Acute (2) Ischemic cardiomyopathy ICD Code: I25.5 - Ischemic cardiomyopathy Status: Chronic (3) Hypertension ICD Code: I10 - Essential (primary) hypertension Status: Chronic (4) Coronary artery disease ICD Code: I25.10 - Atherosclerotic heart disease of [place] coronary artery without angina pectoris Status: Chronic Assessment and Plan 71-year-old male Admitted secondary to A-flutter RVR, post CABGx3 performed three weeks ago. Continue p.o. amiodarone. Monitoring for stability. Cardiology following. Discharge pending stability in heart rate, no recurrence of nausea, and improvement in left lower extremity swelling/pain. Atrial fibrillation with RVR Hypotension Amiodarone drip started by cardiology today Cardiology following Follow on telemetry Daily Aspirin for coagulation Follow BP CAD s/p CABG 3 weeks ago Continue Aspirin, Plavix, Lipitor. DVT Prophylaxis Heparin SQ. Discharge Planning Patient will eventually go home with home health, once stabilized Problem Qualifiers (1) Hypertension: Qualified Codes: I10 - Essential (primary) hypertension (2) Coronary artery disease: Qualified Codes: I25.10 - Atherosclerotic heart disease of [place] coronary artery without angina pectoris Vladimir Rankin MD Aug 09, 2017 18:09
[2017-08-10] VITALS (20 sets, daily range): BP systolic 110–127; BP diastolic 55–61; PULSE 48–66; RESP 14–19; TEMP 97.9–98.3; O2SAT 96–100
[2017-08-10] MEDS: METOPROLOL TARTRATE 25 MG TAB PO SCH ×4 (00:21→23:59)
[2017-08-10] MEDS: ACETAMINOPHEN/HYDROcodone 325 MG/10 MG TAB PO PRN ×4 (03:57→18:28)
[2017-08-10] MEDS: HEPARIN SODIUM - SQ 10,000 UNITS/ML VIAL SQ SCH ×3 (06:12→21:04)
[2017-08-10] MEDS: predniSONE 10 MG TAB PO SCH (08:28)
[2017-08-10] MEDS: ASPIRIN 81 MG CHEW TAB PO SCH (08:28)
[2017-08-10] MEDS: ATORVASTATIN 40 MG TAB PO SCH (08:28)
[2017-08-10] MEDS: GABAPENTIN 100 MG CAP PO SCH ×2 (08:29→21:04)
[2017-08-10] MEDS: PANTOPRAZOLE SOD 20 MG DELAYED RELEASE TAB PO SCH (08:29)
[2017-08-10] MEDS: TAMSULOSIN HCL 0.4 MG CAP PO SCH (08:29)
[2017-08-10] MEDS: AMIODARONE 200 MG TAB PO SCH (08:29)
[2017-08-10] MEDS: CLOPIDOGREL 75 MG TAB PO SCH (08:29)
[2017-08-10] MEDS: SODIUM CHLORIDE 0.9% FLUSH 10 ML FLUSH IV FLUSH SCH ×2 (08:30→21:04)
--- NOTE | 2017-08-10 10:46 | HHI.PR ---
Subjective Remarks Heart rate remains controlled. Patient's nausea is improving. He complains overnight that his foot became cold again and is having severe pains that come and go his left lower extremity calf. He says in the past he has had a have vascular procedures of his lower extremities. No DVT. CT runoff study is inconclusive, but shows no evidence for occlusion. Objective Vital Signs Date Time Temp Pulse Resp B/P (MAP) Pulse Ox O2 Delivery O2 Flow Rate FiO2 08/10/17 03:00 98.2 54 14 125/60 (81) 98 08/10/17 03:00 51 08/09/17 23:00 98.2 55 16 111/55 (73) 96 08/09/17 23:00 49 08/09/17 19:00 98.1 54 16 130/61 (84) 98 08/09/17 19:00 50 08/09/17 18:00 54 08/09/17 17:00 50 08/09/17 16:27 18 08/09/17 16:11 52 08/09/17 15:15 56 08/09/17 15:00 98.3 56 22 107/51 (69) 94 08/09/17 14:00 54 08/09/17 13:00 54 08/09/17 12:07 51 08/09/17 12:00 98.6 54 22 98/55 (69) 99 08/09/17 12:00 50 08/09/17 11:00 52 I/O 08/09/17 08/09/17 08/09/17 08/10/17 08/10/17 08/10/17 07:00 15:00 23:00 07:00 15:00 23:00 Intake Total 240 ml 360 ml 360 ml Output Total 400 ml 1030 ml Balance -160 ml 360 ml -670 ml Intake Oral 240 ml 360 ml 360 ml Output Urine Total 400 ml 1030 ml # Voids 6 # Bowel Movements 1 0 Objective Remarks GENERAL: NAD, A&Ox3 SKIN: Warm and dry. HEAD: Normocephalic. EYES: No scleral icterus. No injection or drainage. NECK: Supple, trachea midline. No JVD or lymphadenopathy. CARDIOVASCULAR: Tachycardia without murmurs, gallops, or rubs. RESPIRATORY: Breath sounds equal bilaterally. No accessory muscle use. GASTROINTESTINAL: Abdomen soft, non-tender, nondistended. MUSCULOSKELETAL: No cyanosis, edema at left lower extremity. BACK: Nontender without obvious deformity. No CVA tenderness. A/P Problem List: (1) Paroxysmal atrial flutter ICD Code: I48.92 - Unspecified atrial flutter Status: Acute (2) Ischemic cardiomyopathy ICD Code: I25.5 - Ischemic cardiomyopathy Status: Chronic (3) Hypertension ICD Code: I10 - Essential (primary) hypertension Status: Chronic (4) Coronary artery disease ICD Code: I25.10 - Atherosclerotic heart disease of [place] coronary artery without angina pectoris Status: Chronic Assessment and Plan 71-year-old male Admitted secondary to A-flutter RVR, post CABGx3 performed three weeks ago. Vascular surgery consult for further assessment of left lower extremity symptoms which could be occlusive in nature. Continue p.o. amiodarone. Monitoring for stability. Cardiology following. Discharge pending stability in heart rate, no recurrence of nausea, and improvement in left lower extremity swelling/pain. Atrial fibrillation with RVR Hypotension Amiodarone drip started by cardiology today Cardiology following Follow on telemetry Daily Aspirin for coagulation Follow BP CAD s/p CABG 3 weeks ago Continue Aspirin, Plavix, Lipitor. DVT Prophylaxis Heparin SQ. Discharge Planning Patient will eventually go home with home health, once stabilized Problem Qualifiers (1) Hypertension: Qualified Codes: I10 - Essential (primary) hypertension (2) Coronary artery disease: Qualified Codes: I25.10 - Atherosclerotic heart disease of [place] coronary artery without angina pectoris Vladimir Rankin MD Aug 10, 2017 10:46
[2017-08-11] VITALS (28 sets, daily range): BP systolic 100–132; BP diastolic 53–79; PULSE 45–64; RESP 16–18; TEMP 97.5–98.4; O2SAT 98–99
[2017-08-11] MEDS: ACETAMINOPHEN/HYDROcodone 325 MG/10 MG TAB PO PRN ×5 (00:01→20:07)
[2017-08-11] MEDS: HEPARIN SODIUM - SQ 10,000 UNITS/ML VIAL SQ SCH ×3 (06:02→21:04)
[2017-08-11] MEDS: METOPROLOL TARTRATE 25 MG TAB PO SCH ×2 (08:39→17:00)
[2017-08-11] MEDS: TAMSULOSIN HCL 0.4 MG CAP PO SCH (08:40)
[2017-08-11] MEDS: ATORVASTATIN 40 MG TAB PO SCH (08:40)
[2017-08-11] MEDS: predniSONE 10 MG TAB PO SCH (08:40)
[2017-08-11] MEDS: PANTOPRAZOLE SOD 20 MG DELAYED RELEASE TAB PO SCH (08:40)
[2017-08-11] MEDS: ASPIRIN 81 MG CHEW TAB PO SCH (08:40)
[2017-08-11] MEDS: CLOPIDOGREL 75 MG TAB PO SCH (08:41)
[2017-08-11] MEDS: GABAPENTIN 100 MG CAP PO SCH ×2 (08:41→21:04)
[2017-08-11] MEDS: AMIODARONE 200 MG TAB PO SCH (09:00)
[2017-08-11] MEDS: SODIUM CHLORIDE 0.9% FLUSH 10 ML FLUSH IV FLUSH SCH ×2 (09:00→21:03)
--- NOTE | 2017-08-11 11:32 | PD.CAR.PN ---
CVT Progress Note Subjective/Hospital Course: 08/11/2017 Patient is a very complex medical history and recent open heart surgery complains about pain in the left leg at night and states it feels ice cold On exam patient does not have acute vascular ischemia and while he probably has some degree of arthrosclerotic disease based on clinical exam and history, I believe this is mainly a neurogenic issue. At this point patient should not be worked up further for this is not an acute problem and he can follow-up with me in about a month in the office at which point we will would not work him up for this particular issue Full consult dictated Patient can be discharged from vascular point Thanks J Objective: Vital Signs Date Time Temp Pulse Resp B/P (MAP) Pulse Ox O2 Delivery O2 Flow Rate FiO2 08/11/17 09:00 51 08/11/17 08:00 49 08/11/17 07:00 98.1 51 18 100/58 (72) 98 08/11/17 07:00 51 08/11/17 06:07 48 08/11/17 05:00 50 08/11/17 05:00 16 08/11/17 04:00 45 08/11/17 03:46 98.0 53 18 132/60 (84) 98 08/11/17 03:00 45 08/11/17 02:00 46 08/11/17 01:00 46 08/11/17 00:00 49 08/10/17 23:50 98.2 53 19 110/55 (73) 97 08/10/17 23:00 49 08/10/17 22:00 52 08/10/17 21:00 56 08/10/17 20:55 98.0 54 18 127/61 (83) 99 08/10/17 20:00 66 08/10/17 19:00 60 08/10/17 18:00 55 08/10/17 17:00 60 08/10/17 16:00 52 08/10/17 15:00 50 08/10/17 15:00 98.3 52 16 119/58 (78) 99 08/10/17 14:00 50 08/10/17 13:00 54 08/10/17 12:00 54 (1) Paroxysmal atrial flutter Plan: Remains in atrial fib/flutter. HR's this morning normal, mildly elevated last night. BP too low to increase beta magda or add diltiazem. Thromboembolic risk overall low. REC change back to oral Amiodarone; OK to discharge around lunch time today if HR's normal, < 100 continue daily aspirin, metoprolol (2) Ischemic cardiomyopathy Plan: Overall stable, compensated. EF about 45% by echo this admission. Recommend continue beta magda. No KURTIS-I or ARB with relatively low BP's. (3) Coronary artery disease Plan: Status post recent CABG. No definite recent angina. No evidence for ACS. Continue daily aspirin, beta magda. (4) Hypertension Plan: Stable. Normotensive today. Problem Qualifiers (1) Coronary artery disease: Qualified Codes: I25.10 - Atherosclerotic heart disease of [place] coronary artery without angina pectoris (2) Hypertension: Qualified Codes: I10 - Essential (primary) hypertension Gaston Arnett MD Aug 11, 2017 11:32
--- NOTE | 2017-08-11 12:14 | HHI.DS ---
Discharge Summary Admission Date Aug 06, 2017 at 14:58 Discharge Date: Aug 11, 2017 Admitting Diagnosis atrial flutter in RVR, COPD exacerbation, bronchitis (1) Atrial fibrillation with RVR ICD Code: I48.91 - Unspecified atrial fibrillation Diagnosis: Principal (2) S/P CABG (coronary artery bypass graft) ICD Code: Z95.1 - Presence of aortocoronary bypass graft Diagnosis: Principal (3) Hypotension ICD Code: I95.9 - Hypotension, unspecified Diagnosis: Principal Procedures None. Brief History - From Admission 71-year-old male with a past medical history significant for atrial fibrillation , coronary artery disease status post CABG 3 3 weeks ago, rheumatoid arthritis , hyperlipidemia, COPD, rheumatoid arthritis and neuropathy presents the emergency department for evaluation of shortness of breath. The patient reports that he awoke this morning and was short of breath. He was on his way to his primary care physician's office when his shortness of breath acutely worsened. He called EMS for further evaluation. He also complains of a sharp chest pain in the middle of his chest that radiates to the right side. He denies any abdominal pain. No nausea/vomiting/diarrhea. No lateralizing signs/ symptoms. PE at Discharge GENERAL: Alert, Oriented x 3, NAD. SKIN: Warm and dry. Sternal incision well healed. HEAD: Normocephalic. EYES: No scleral icterus. No injection or drainage. NECK: Supple, trachea midline. No JVD or lymphadenopathy. CARDIOVASCULAR: Regular rhythm and rate without murmurs, gallops, or rubs. RESPIRATORY: Breath sounds equal bilaterally. No accessory muscle use. GASTROINTESTINAL: Abdomen soft, non-tender, nondistended. MUSCULOSKELETAL: No cyanosis, or edema. BACK: Nontender without obvious deformity. No CVA tenderness. Hospital Course Mr. Dove is a 71-year-old male. He was admitted secondary to a flutter with RVR. This was resistant to treatment. He has been treated on amiodarone. Digoxin was added in has had benefit. The patient's heart rate has been in the 50s on these treatments but he is asymptomatic and no further tachycardic episodes have been present. Discharge was held up because patient was complaining of left foot pain with swelling, pallor, and cold sensation. Vascular workup was provided which included an ultrasound and CTA runoff. No overt evidence of occlusion to underlying disease may be present. Vascular surgery evaluated this patient feels this is may be neurologic in nature rather than vascular. They have cleared this patient for discharge home today. Patient is medically stable and ready for discharge home today. Pt Condition on Discharge: Good Discharge Disposition: Disch w/ Home Health Serv Discharge Time: <= 30 minutes Discharge Instructions DIET: Follow Instructions for: Heart Healthy Diet Activities you can perform: Regular-No Restrictions Follow up Referrals: Cardiology - 2 Weeks with Leanna Pires MD PCP Follow-up - 1 Week New Medications: Digoxin (Digoxin) 0.125 Mg Tab 0.125 MG PO DAILY for Regulate Heart Beat, #30 TAB 0 Refills Amiodarone (Amiodarone) 200 Mg Tab 200 MG PO DAILY for Heart Rate Control, #30 TAB Metoprolol Tartrate (Metoprolol Tartrate) 25 Mg Tab 12.5 MG PO Q8H for Heart for 30 Days, #45 TAB 3 Refills Hold if systolic BP < 95 or Heart rate < 65 Tamsulosin (Flomax) 0.4 Mg Cap 0.4 MG PO DAILY for BPH, #30 CAP 11 Refills Continued Medications: Aspirin (Tgt Aspirin) 81 Mg Chw 81 MG PO DAILY for Blood Clot Prevention, #30 EA 2 Refills Atorvastatin (Lipitor) 10 Mg Tab 40 MG PO DAILY for Cholesterol Management, #30 TAB 2 Refills Clopidogrel (Plavix) 75 Mg Tab 75 MG PO DAILY for Blood Clot Prevention, #30 TAB 2 Refills Ferrous Sulfate (Ferrous Sulfate) 325 Mg (65 Mg Iron) Tablet 325 MG PO BIDPC for Nutritional Supplement, #60 TAB 0 Refills Gabapentin (Gabapentin) 100 Mg Cap 100 MG PO BID, #60 CAP 0 Refills Omeprazole (Omeprazole) 20 Mg Tab 20 MG PO DAILY, #30 TAB 0 Refills Oxycodone HCl/Acetaminophen (Oxycodone-Acetaminophen 10-325) 10 Mg-325 Mg Tablet 1 TAB PO Q4H PRN for PAIN SCALE 1 TO 5, #40 TAB 0 Refills Prednisone (Prednisone) 10 Mg Tab 10 MG PO DAILY for chronic steroid use, #30 TAB 1 Refill Discontinued Medications: Docusate Sodium (Dok) 100 Mg Cap 100 MG PO BID for Constipation, #60 CAP 0 Refills Lisinopril (Lisinopril) 5 Mg Tab 5 MG PO DAILY for Blood Pressure Management, #30 TAB 2 Refills Magnesium Oxide (Magnesium Oxide) 500 Mg Cap Metoprolol Tartrate (Metoprolol Tartrate) 25 Mg Tab 25 MG PO BID for Blood Pressure Management, #60 TAB 3 Refills Vladimir Rankin MD Aug 11, 2017 12:14
--- NOTE | 2017-08-11 12:15 | HHI.FF ---
Face to Face Verification Diagnosis: (1) Atrial fibrillation with RVR (2) Ischemic cardiomyopathy (3) Paroxysmal atrial flutter (4) Foot pain (5) Intractable back pain (6) Sciatica (7) Radiculopathy Physical Therapy Order: Evaluate and Treat, Improve ambulation, Strength and gait training Home Health Nursing Order: Signs/symptoms of disease process Medication education-adverse effect Nursing assessment with vital signs I have seen patient Gui Dove on 08/11/17. My clinical findings support the need for the requested home health care services because: Ltd mobility - disease progression Patient has SOB Deconditioned w/ increased weakness Limited ability to care for self High risk of falls I certify that my clinical findings support that this patient is homebound because: Unsteady gait/balance Unsafe to leave home unassisted Unable to use public transportation Vladimir Rankin MD Aug 11, 2017 12:15
[2017-08-12] VITALS (15 sets, daily range): BP systolic 103–123; BP diastolic 56–69; PULSE 46–67; RESP 16–18; TEMP 97.7–98.6; O2SAT 97–98
[2017-08-12] MEDS: METOPROLOL TARTRATE 25 MG TAB PO SCH ×2 (00:05→08:31)
[2017-08-12] MEDS: ACETAMINOPHEN/HYDROcodone 325 MG/10 MG TAB PO PRN ×3 (03:52→08:30)
[2017-08-12] MEDS: HEPARIN SODIUM - SQ 10,000 UNITS/ML VIAL SQ SCH (05:56)
[2017-08-12] MEDS: SODIUM CHLORIDE 0.9% FLUSH 10 ML FLUSH IV FLUSH SCH (08:29)
[2017-08-12] MEDS: ASPIRIN 81 MG CHEW TAB PO SCH (08:30)
[2017-08-12] MEDS: predniSONE 10 MG TAB PO SCH (08:30)
[2017-08-12] MEDS: PANTOPRAZOLE SOD 20 MG DELAYED RELEASE TAB PO SCH (08:31)
[2017-08-12] MEDS: ATORVASTATIN 40 MG TAB PO SCH (08:31)
[2017-08-12] MEDS: CLOPIDOGREL 75 MG TAB PO SCH (08:31)
[2017-08-12] MEDS: AMIODARONE 200 MG TAB PO SCH (08:31)
[2017-08-12] MEDS: GABAPENTIN 100 MG CAP PO SCH (08:31)
[2017-08-12] MEDS: TAMSULOSIN HCL 0.4 MG CAP PO SCH (08:31)
[2017-08-12] MEDS ORDERED: DIGO0.12 PO (13:17)
--- NOTE | 2017-08-13 07:58 | MB ---
cc: Gaston Arnett MD DATE: 08/11/2017 REASON FOR CONSULTATION: Claudication and peripheral vascular disease of chronic nature, coronary artery disease, ischemic cardiomyopathy, COPD, atrial flutter and hypertension. HISTORY OF PRESENT ILLNESS: This is a 71-year-old male with a long history of cardiac problems and post coronary artery bypass surgery in June of this year, has been now in the hospital for a while. He started having progressive shortness of breath and was admitted to the hospital for the same. He was worked up. In the process of workup, he stated that his legs felt cold, especially the left leg at night. He can only walk about 100 feet before he gets very short of breath, but this is not a claudication limiting event, rather it is a respiratory event. Question arise about any vascular implications. PAST MEDICAL HISTORY: That above noted, paroxysmal flutter, hypertension, hyperlipidemia, severe coronary artery disease, post bypass grafting in 06/2017, COPD. MEDICATIONS: Can be found in the chart. SOCIAL HISTORY: The patient does not smoke for the last 30 years. PHYSICAL EXAMINATION: GENERAL: Reveals a pleasant 71-year-old male. HEENT: Normocephalic. No trauma to the head. Pupils equal, reactive. Extraocular muscles intact. NECK: Bilateral carotid pulses. No bruits. CHEST: Clear bilateral breath sounds, decreased over both lungs jenkins, with some expiratory wheezing, consistent with moderate to severe COPD. Chest wall musculature loss, consistent with pulmonary cachexia of advanced emphysema. HEART: At this point, regular rhythm and no murmurs. ABDOMEN: Soft. No rebound, no guarding, no mass. EXTREMITIES: The patient actually has bilateral palpable femoral pulses, Dopplerable popliteal and Dopplerable dorsalis pedis and posterior tibial pulses, although those are fairly weak. While cardiac rhythm appears to be sinus when listening with a Doppler, the patient more sounds like atrial flutter. He is not on the monitor anymore, so it is hard to tell if, and if it is a flutter, it is controlled. Feet are warm. There are no signs of acute vascular deficit and although the patient has some dependent rubor and elevation pallor. On elevation of the left leg, the patient winces for he says it hurts in the calf and then toward the hip. IMPRESSION AND RECOMMENDATIONS: After reviewing laboratory and diagnostic procedures in this patient, I would say that the patient has probable diffuse vascular disease with some inflow and outflow issues, however, nothing acute that needs to be addressed right now. The patient has multiple other problems that need attention more than this. In addition, I believe the majority of the patient's symptoms on the left leg are neurogenic in nature and related to sciatic nerve radiculopathy, probably at L4-L5, L5-S1 levels. The patient can followup with my office when everything is done and we can go from there. Thank you very much for your referral. MD EDUARDO Vela/MIGUEL , 06:02 PM , 09:02 PM
== END 2017-08-12 13:25 | disposition home health service (06) | DRG 309 ==
LOC: NEPE 13:56 → NEDA 19:17 → HCPC 22:53 → OBSVTOIN 08-06 14:58 → HCIS 08-11 21:21
PROVIDERS: ADMIT Family Medicine; ATTEND Family Medicine
DX: I48.92 Unspecified atrial flutter (principal); J44.1 Chronic obstructive pulmonary disease with (acute) exacerbation; I95.9 Hypotension, unspecified; I48.0 Paroxysmal atrial fibrillation; E78.5 Hyperlipidemia, unspecified; J40 Bronchitis, not specified as acute or chronic; I25.10 Atherosclerotic heart disease of native coronary artery without angina pectoris; I10 Essential (primary) hypertension; I25.2 Old myocardial infarction; I25.5 Ischemic cardiomyopathy; I73.9 Peripheral vascular disease, unspecified; R11.0 Nausea; M79.672 Pain in left foot; R00.0 Tachycardia, unspecified; M79.89 Other specified soft tissue disorders; M79.605 Pain in left leg; K21.9 Gastro-esophageal reflux disease without esophagitis; M06.9 Rheumatoid arthritis, unspecified; M54.10 Radiculopathy, site unspecified; Z79.02 Long term (current) use of antithrombotics/antiplatelets; Z79.82 Long term (current) use of aspirin; Z95.5 Presence of coronary angioplasty implant and graft; Z95.1 Presence of aortocoronary bypass graft; Z88.1 Allergy status to other antibiotic agents; Z88.5 Allergy status to narcotic agent; Z88.0 Allergy status to penicillin; Z88.2 Allergy status to sulfonamides
CPT/HCPCS: 71045; 71275; 75635; 76937; 80048; 80053; 82550; 83605; 83690; 83735; 83880; 84484; 85025; 85610; 85730; 93005; 93306; 94664; G8987-GP; G8988-GP; J0282; J0456; J0461; J1160; J1170; J1644; J2765; J7040; J7050; J7120; J7512; Q9967